=== PATIENT | male | born 1955 | race Caucasian/White ===

== ENCOUNTER 2016-07-18 10:52 | Emergency (ER) | payer OTHER, MEDICAID ==
[2016-07-18 11:03] VITALS: BP 133/80
[2016-07-18] MEDS ORDERED: ACETAMINOPHEN 325 MG TABLET PO ONE (11:40)
--- NOTE | 2016-07-18 11:42 | ER Document Report ---
ED Medical Screen (RME) - General Chief Complaint: Dialysis Catheter Problem Stated Complaint: ABDOMINAL PAIN Mode of Arrival: Ambulatory Information source: Patient Notes: Patient is a 61 yo M who presents with complaints that his PD catheter is "clogged up" for the past 2 days. he has been unable to pull any fluid out or put anything in. He endorses abdominal pain, rated at 2 out of 5, described as sharp/severe. Endorses diarrhea but denies fever/chills, nausea, vomiting, drainage or erythema around the site. He typically does 9 hours every night with a mid-day exchange, the last time this occurred was 2 days ago and at that time, it only gave a low volume and he does not feel it drained completely. TRAVEL OUTSIDE OF THE [place] IN LAST 30 DAYS: No - Related Data Allergies/Adverse Reactions: No Known Allergies Allergy (Verified 07/18/16 11:03) Past Medical History - Past Medical History Cardiac Medical History: Reports: Hx Coronary Artery Disease, Hx Heart Attack - 20 yrs ago, Hx Hypertension - on meds Pulmonary Medical History: Reports: Hx Asthma - inhalers, Hx Bronchitis, Hx COPD , Hx Pneumonia - Multiple times, Last time 4-5 yrs ago Neurological Medical History: Reports: Hx Cerebrovascular Accident - 10 yrs ago ; Lt side weakness, Hx Seizures - With kidney failure 2014 x 1-no meds Musculoskeltal Medical History: Reports Hx Arthritis - all joints Past Surgical History: Reports: Hx Orthopedic Surgery - Immunizations Immunizations up to date: Yes Hx Diphtheria, Pertussis, Tetanus Vaccination: Yes Review of Systems - Review of Systems Constitutional: See HPI Gastrointestinal: See HPI Skin: See HPI Physical Exam - Vital signs Vitals: Temp Pulse Resp BP Pulse Ox 98.1 F 80 20 133/80 H 97 07/18/16 11:01 07/18/16 11:01 07/18/16 11:01 07/18/16 11:01 07/18/16 11:01 - Notes Notes: General: VSS, no acute distress. Well-appearing Skin: No tenderness, erythema, warmth, swelling or drainage from PD site in left lower abdomen. Course - Re-evaluation Re-evalutation: 07/18/16 11:42 Patient seen and examined. Ordered PO tylenol for pain, lab work. - Vital Signs Vital signs: Temp Pulse Resp BP Pulse Ox 98.1 F 80 20 133/80 H 97 07/18/16 11:01 07/18/16 11:01 07/18/16 11:01 07/18/16 11:01 07/18/16 11:01
[2016-07-18 12:23] LABS: ABSOLUTE BASOPHILS # (AUTO) 0.1 10^3/uL (0.0-0.2); ABSOLUTE EOSINOPHILS # (AUTO) 0.3 10^3/uL (0.0-0.6); ABSOLUTE LYMPHOCYTES (AUTO) 2.2 10^3/uL (0.5-4.7); ABSOLUTE NEUT (AUTO) 7.5 10^3/uL (1.7-8.2); BASOPHILS % (AUTO) 0.6 % (0-2); EOSINOPHILS % (AUTO) 2.3 % (0-6); HEMATOCRIT 34.9 % (37.9-51.0); HEMOGLOBIN 11.6 g/dL (13.5-17.0); HGB HCT DIFFERENCE -0.1; LYMPHOCYTES % (AUTO) 19.9 % (13-45); MEAN CORPUSCULAR HEMOGLOBIN 31.5 pg (27.0-33.4); MEAN CORPUSCULAR HGB CONC 33.2 g/dL (32.0-36.0); MEAN CORPUSCULAR VOLUME 95 fl (80-97); MONOCYTES % (AUTO) 8.8 % (3-13); RED BLOOD COUNT 3.68 10^6/uL (4.35-5.55); RED CELL DISTRIBUTION WIDTH 14.6 % (11.5-14.0); SEGMENTED NEUTROPHILS % (AUTO) 68.4 % (42-78); WHITE BLOOD COUNT 10.9 10^3/uL (4.0-10.5)
[2016-07-18 12:34] LABS: ALANINE AMINOTRANSFERASE 36 U/L (21-72); ALBUMIN 3.2 g/dL (3.5-5.0); ALKALINE PHOSPHATASE 97 U/L (38-126); ANION GAP 14 (5-19); ASPARTATE AMINO TRANSFERASE 20 U/L (17-59); BILIRUBIN,TOTAL 0.3 mg/dL (0.2-1.3); BLOOD UREA NITROGEN 50 mg/dL (7-20); CARBON DIOXIDE 24 mmol/L (22-30); CHLORIDE 108 mmol/L (98-107); CREATININE RESULT 4.61 mg/dL (0.52-1.25); GLUCOSE 150 mg/dL (75-110); POTASSIUM 4.3 mmol/L (3.6-5.0); SODIUM 145.8 mmol/L (137-145); TOTAL PROTEIN 6.1 g/dL (6.3-8.2)
[2016-07-18 12:46] LABS: CALCIUM 6.7 mg/dL (8.4-10.2)
--- NOTE | 2016-07-18 15:03 | ER Document Report ---
ED Dialysis Cath/Shunt Problem - General Mode of Arrival: Ambulatory Information source: Patient TRAVEL OUTSIDE OF THE [place] IN LAST 30 DAYS: No - HPI Onset: Other - x2 days Onset/Duration: Persistent Associated symptoms: None <MEGHA LEES - Last Filed: 07/18/16 16:30> <RONALD MORGAN - Last Filed: 07/18/16 18:06> - General Chief Complaint: Dialysis Catheter Problem Stated Complaint: ABDOMINAL PAIN Notes: Patient is a 61 year old male that presents to the emergency department today with complaints of his peritoneal dialysis catheter being clogged. Patient states he has been unable to do his dialysis at home for the last two days because of this. Patient states he has also had mild "abdominal discomfort". Patient denies any other symptoms. (MEGHA LEES) - Related Data Allergies/Adverse Reactions: No Known Allergies Allergy (Verified 07/18/16 11:03) Past Medical History - General Information source: Patient - Social History Smoking Status: Current Every Day Smoker Cigarette use (# per day): Yes Frequency of alcohol use: None Drug Abuse: None Family History: Reviewed & Not Pertinent - Past Medical History Cardiac Medical History: Reports: Hx Coronary Artery Disease, Hx Heart Attack - 20 yrs ago, Hx Hypertension - on meds Pulmonary Medical History: Reports: Hx Asthma - inhalers, Hx Bronchitis, Hx COPD , Hx Pneumonia - Multiple times, Last time 4-5 yrs ago Neurological Medical History: Reports: Hx Cerebrovascular Accident - 10 yrs ago ; Lt side weakness, Hx Seizures - With kidney failure 2014 x 1-no meds Musculoskeltal Medical History: Reports Hx Arthritis - all joints Past Surgical History: Reports: Hx Orthopedic Surgery, Hx Vascular Surgery - fistula left arm - Immunizations Immunizations up to date: Yes Hx Diphtheria, Pertussis, Tetanus Vaccination: Yes <MEGHA LEES - Last Filed: 07/18/16 16:30> Review of Systems - Review of Systems Constitutional: denies: Fever EENT: No symptoms reported Cardiovascular: No symptoms reported Respiratory: No symptoms reported Gastrointestinal: denies: Abdominal pain Genitourinary: See HPI, Other - possible clogging of peritoneal dialysis catheter Male Genitourinary: No symptoms reported Musculoskeletal: No symptoms reported Skin: No symptoms reported Hematologic/Lymphatic: No symptoms reported Neurological/Psychological: No symptoms reported -: Yes All other systems reviewed and negative <MEGHA LEES - Last Filed: 07/18/16 16:30> Physical Exam - General General appearance: Appears well, Alert In distress: None - HEENT Head: Normocephalic, Atraumatic Eyes: Normal Conjunctiva: Normal Extraocular movements intact: Yes - Respiratory Respiratory status: No respiratory distress - Cardiovascular Rhythm: Regular Heart sounds: Normal auscultation - Abdominal Inspection: Other - Peritoneal Dialysis Catheter in place, no surrounding erythema, discharge, or sign of infection. Catheter flushes but is unable to pulled back out past a certain point, at which point it causes the patient pain. There is sediment in the tubing. Tenderness: Nontender. No: Guarding, Rebound - Back Back: Nontender - Extremities General upper extremity: Normal inspection, Nontender. No: Edema General lower extremity: Normal inspection, Nontender. No: Edema - Neurological Neuro grossly intact: Yes Cognition: Normal Orientation: AAOx4 - Psychological Associated symptoms: Normal affect, Normal mood - Skin Skin Temperature: Warm Skin Moisture: Dry Skin Color: Normal <MEGHA LEES - Last Filed: 07/18/16 16:30> Course - Laboratory Result Diagrams: 07/18/16 12:05 07/18/16 12:05 <MEGHA LEES - Last Filed: 07/18/16 16:30> - Laboratory Result Diagrams: 07/18/16 12:05 07/18/16 12:05 <RONALD MORGAN - Last Filed: 07/18/16 18:06> - Re-evaluation Re-evalutation: 07/18/16 16:28 I personally performed the services described in the documentation, reviewed and edited the documentation which was dictated to my scribe in my presence, and it accurately records my words and actions. Presents emergency Department with chief complaint of he can't do his peritoneal dialysis because catheter is blocked. He says his catheter was put in about a year and half ago when he does peritoneal dialysis midday and 9 hours in the evening. He has seen Dr. Nita Belcher and goes to [place] Dr. Dalton. On presentation he is awake alert afebrile no white count elevation and no acute abdominal guarding rebound rigidity or peritoneal signs on serial abdominal examinations. I did withdraw a small amount of fluid which was sent to the lab for culture and evaluation. There is was agreed to degree of sediment in the tubing. I flushed it with 10 mL of normal saline and it flushed very easily but when I attempted to pull the fluid back it stopped abruptly at 5 mL would not pull back any further and cause little bit of discomfort to the patient. I contacted Dr. Villatoro at [phone] was asset protection professional for general surgery he asked me to touch base with Dr. Nita Belcher which I contacted at [phone]. Spoke with Dr. Nita Belcher who said that the patient he could deftly see the patient in the office tomorrow. Patient has elevated creatinine but no acute potassium elevation warranting immediate dialysis. Contacted [place] Dr. Sethi at [phone] to make sure that he is okay with the plan that the patient will follow-up in the a.m. with Dr. Belcher to assess the nonfunctioning peritoneal dialysis catheter. 07/18/16 18:[address] Sethi in [place] he says that he can have his nurse contact the patient meets patient and the office tomorrow to assess patient does not have hyperkalemia or need for emergent dialysis at this point also does not have clinical evidence of acute peritonitis on examination. He is going to be discharge follow-up with the benzol still operator's office tomorrow and discussed reasons for ED return sooner (RONALD MORGAN) - Vital Signs Vital signs: Temp Pulse Resp BP Pulse Ox 98.1 F 80 20 133/80 H 97 07/18/16 11:01 07/18/16 11:01 07/18/16 11:01 07/18/16 11:01 07/18/16 11:01 (MEGHA LEES) (RONALD MORGAN) - Laboratory Laboratory results interpreted by me: 07/18/16 07/18/16 12:05 12:05 WBC 10.9 H RBC 3.68 L Hgb 11.6 L Hct 34.9 L RDW 14.6 H Sodium 145.8 H Chloride 108 H BUN 50 H Creatinine 4.61 H Est GFR ( Amer) 16 L Est GFR (Non-Af Amer) 13 L Glucose 150 H Calcium 6.7 L* Total Protein 6.1 L Albumin 3.2 L (MEGHA LEES) (RONALD MORGAN) Discharge <MEGHA LEES - Last Filed: 07/18/16 16:30> <RONALD MORGAN - Last Filed: 07/18/16 18:06> - Discharge Clinical Impression: peritoneal dialysis catheter malfunction Condition: Stable Additional Instructions: You have been seen and evaluated for nonfunctioning peritoneal dialysis catheter. Right now you do not need emergency dialysis extra potassium is okay however I spoke with your benzol still operator want you meet them in the office first thing tomorrow to assess the dysfunction with the catheter site. At this time you don't have any severe abdominal pain or concerns for acute abdominal findings like there is an infection from the catheter site. I did send the fluid from the catheter down for evaluation. I discussed this with your benzol still operator kidney specialist as well and he states you're able to be discharge follow-up first thing in the a.m. and discuss reasons for ED return sooner increasing abdominal pain fever vomiting or any concerns Scribe Documentation - Scribe Written by Francis:: Francis Lay, 1632 (07/18/2016) acting as scribe for :: Gonzales <MEGHA LEES - Last Filed: 07/18/16 16:30>
== END 2016-07-18 18:11 | disposition home or self-care (01) ==
LOC: ER 10:52
DX: T82.9XXA Unspecified complication of cardiac and vascular prosthetic device, implant and graft, initial encounter (principal); R10.9 Unspecified abdominal pain; F17.210 Nicotine dependence, cigarettes, uncomplicated; I25.10 Atherosclerotic heart disease of native coronary artery without angina pectoris; I25.2 Old myocardial infarction; I10 Essential (primary) hypertension
CPT/HCPCS: 36415; 80053; 85025; 87070; 87075; 87205; 99283

== ENCOUNTER → 2016-07-19 | Outpatient (CLI) | payer OTHER, MEDICAID | LOC: OD 10:45 | PROVIDERS: ATTEND Internal Medicine Nephrology | DX: E87.5 Hyperkalemia (principal); N18.6 End stage renal disease | CPT/HCPCS: 36415; 74000; 84132 ==

== ENCOUNTER → 2016-08-31 | Outpatient (CLI) | payer OTHER ==
[~2016-08-31] MED LIST: REGADENOSON INJ 0.4 MG/5 ML DISP.SYRIN IV ONE
--- NOTE | 2016-08-31 20:31 | DRAGON STRESS TEST REPORT ---
ntravenous Lexiscan Cardiolite stress test using single photon emmision computerized tomography. Date of procedure: 08/31/2016. Ordering Provider: Dr. Charmaine Ryan. Primary Care Physician: [facility]. Indication: Chest pain. Coronary risk factors: Age, diabetes mellitus non- insulin-dependent, hypertension, dyslipidemia, tobacco abuse disorder and family history of coronary artery disease. Resting EKG: Sinus Rhythm. Within Normal Limits. The patient had no chest pain or discomfort, and there were no arrhythmias seen Stress EKG: No changes of ischemia. Reason for termination: Protocol. Conclusions: Normal EKG and hemodynamic response to IV Lexiscan. Nuclear data: At rest the patient was given 15.09 millicuries of technetium 99m sestamibi injected intravenously. As per protocol rest non gated SPECT images were obtained. Subsequently the patient was given intravenous Lexiscan at a dose of 0.4 mg in 5 mL intravenously, followed by flush with normal saline. Subsequently the stress dose of 45.5 millicuries of technetium 99m sestamibi was injected intravenously. As per protocol stress gated images were obtained. Nuclear interpretation: Review of images showed there is liver and bowel contamination artifact. A poor quality study. There is a perfusion defect in the basal inferior wall which is more pronounced in the rest images compared to the stress images hence this is most likely artifactual. The rest of the segments of the myocardium segments of the myocardium had normal perfusion at rest, and normal perfusion post stress with IV Lexiscan. All segments of the myocardium had normal motion, contraction, and thickening by gated study. T. I D. ratio was normal at . Computer read rest, and stress left ventricular ejection fraction were 64 %, and 69 %, respectively. Conclusion: 1. There is no scintigraphic evidence of Lexiscan induced myocardial ischemia. 2. There is no scintigraphic evidence of myocardial infarction/scar. Recommendations: Aggressive risk factor modification, and treating the underlying co- morbidities. MTDD
== END ==
LOC: RAD 06:18
PROVIDERS: ATTEND Specialist
DX: R07.9 Chest pain, unspecified (principal)
CPT/HCPCS: 93017; 78452; A9500; J2785; Q9969

== ENCOUNTER 2016-09-21 17:21 | Inpatient (IN) | payer OTHER, MEDICAID ==
[2016-09-21 18:00] LABS: HEMATOCRIT 40.2 % (37.9-51.0); HEMOGLOBIN 13.5 g/dL (13.5-17.0); HGB HCT DIFFERENCE 0.3; MEAN CORPUSCULAR HEMOGLOBIN 31.5 pg (27.0-33.4); MEAN CORPUSCULAR HGB CONC 33.5 g/dL (32.0-36.0); MEAN CORPUSCULAR VOLUME 94 fl (80-97); RED BLOOD COUNT 4.27 10^6/uL (4.35-5.55); RED CELL DISTRIBUTION WIDTH 14.7 % (11.5-14.0); WHITE BLOOD COUNT 20.3 10^3/uL (4.0-10.5)
[2016-09-21 18:20] LABS: ALANINE AMINOTRANSFERASE 42 U/L (21-72); ALBUMIN 4.7 g/dL (3.5-5.0); ALKALINE PHOSPHATASE 125 U/L (38-126); ANION GAP 17 (5-19); ASPARTATE AMINO TRANSFERASE 27 U/L (17-59); BILIRUBIN,TOTAL 0.7 mg/dL (0.2-1.3); BLOOD UREA NITROGEN 18 mg/dL (7-20); CALCIUM 8.9 mg/dL (8.4-10.2); CARBON DIOXIDE 31 mmol/L (22-30); CHLORIDE 93 mmol/L (98-107); CREATINE KINASE 95 U/L (55-170); CREATININE RESULT 2.36 mg/dL (0.52-1.25); GLUCOSE 147 mg/dL (75-110); POTASSIUM 3.6 mmol/L (3.6-5.0); SODIUM 140.7 mmol/L (137-145); TOTAL PROTEIN 8.7 g/dL (6.3-8.2)
[2016-09-21 18:23] LABS: BASOPHILS % (MANUAL) 0 % (0-2); EOSINOPHILS % (MANUAL) 2 % (0-6); LYMPHOCYTES % (MANUAL) 11 % (13-45); TOTAL CELLS COUNTED 100
[2016-09-21] MEDS ORDERED: NORMAL SALINE 1000 ML 500 ML IV ONE (18:24)
[2016-09-21 18:25] LABS: ANISOCYTOSIS SLIGHT; POLYCHROMASIA SLIGHT; TOXIC GRANULATION SLIGHT
--- NOTE | 2016-09-21 18:30 | ER Document Report ---
ED General - General Information source: Patient TRAVEL OUTSIDE OF THE [place] IN LAST 30 DAYS: No - HPI Patient complains to provider of: Syncope Onset: Just prior to arrival Onset/Duration: Sudden Associated symptoms: Productive cough, Headache, Nausea, Shortness of breath, Other - Confusion. denies: Vomiting <JAXSON WILSON - Last Filed: 09/22/16 00:03> <ANUPAMA BARBOSA - Last Filed: 09/22/16 03:31> - General Chief Complaint: Syncope Stated Complaint: POSSIBLE SYNCOPE Notes: Patient is a 61-year-old male presenting to the emergency department after having a syncopal episode today at [facility] just prior to arrival. Patient states that he had just left his dialysis treatment, with a took off more fluid than usual, and went straight to [facility]. Patient states that he thought he was going to cough, next thing he knew somebody was standing over him asking him if he could stand. Patient states that he has had a cough for the past 2 weeks, and he was given an antibiotic yesterday. Patient admits to chest soreness, shortness of breath, severe headache, mild back pain and mild nausea. Patient also states that yesterday when he coughed it felt like he went twilight zone. Patient also admits to being confused. Patient has a history of heart attack, stroke, and he is in end stage renal failure. (JAXSON WILSON) - Related Data Allergies/Adverse Reactions: No Known Allergies Allergy (Verified 09/21/16 17:55) Past Medical History - General Information source: Patient - Social History Smoking Status: Current Every Day Smoker Chew tobacco use (# tins/day): No Frequency of alcohol use: None Drug Abuse: None Family History: Reviewed & Not Pertinent - Past Medical History Cardiac Medical History: Reports: Hx Coronary Artery Disease - CHOLESTEROL, Hx Heart Attack, Hx Hypertension Pulmonary Medical History: Reports: Hx Asthma, Hx COPD, Hx Pneumonia Denies: Hx Bronchitis Neurological Medical History: Reports: Hx Cerebrovascular Accident. Denies: Hx Seizures Renal/ Medical History: Reports: Hx End Stage Renal Disease, Hx Hemodialysis Musculoskeltal Medical History: Reports Hx Arthritis Past Surgical History: Reports: Hx Orthopedic Surgery, Hx Vascular Surgery - fistula left arm - Immunizations Immunizations up to date: Yes Hx Diphtheria, Pertussis, Tetanus Vaccination: - UNSURE <FANY WILSONICA - Last Filed: 09/22/16 00:03> Review of Systems - Review of Systems Constitutional: See HPI, Recent illness - Antibiotic for cough EENT: No symptoms reported Cardiovascular: See HPI, Chest pain - "sore", Syncope, Lightheaded Respiratory: See HPI, Cough, Hurts to breathe, Short of breath Gastrointestinal: See HPI, Nausea Genitourinary: No symptoms reported Male Genitourinary: No symptoms reported Musculoskeletal: No symptoms reported Skin: No symptoms reported Hematologic/Lymphatic: No symptoms reported Neurological/Psychological: See HPI, Confusion, Lost consciousness, Headaches -: Yes All other systems reviewed and negative <KATIEDARWINJAXSON - Last Filed: 09/22/16 00:03> Physical Exam - Vital signs Interpretation: Hypotensive, Tachycardic, Tachypneic - General General appearance: Alert, Other - Appears uncomfortable - HEENT Head: Normocephalic, Abrasions - Small abrasion to back of head, not actively bleeding. Eyes: Normal Pupils: PERRL - Respiratory Respiratory status: No respiratory distress Chest status: Nontender Breath sounds: Normal Chest palpation: Normal - Cardiovascular Rhythm: Tachycardia Heart sounds: Normal auscultation Murmur: No - Abdominal Inspection: Other - Peritoneal dialysis catheter coming out of his left abdomen Distension: No distension Bowel sounds: Normal Tenderness: Nontender Organomegaly: No organomegaly - Back Back: Tender - C5-C7 tenderness to palpation - Extremities General upper extremity: Normal inspection, Nontender, Normal color, Normal ROM , Normal temperature General lower extremity: Normal inspection, Nontender, Normal color, Normal ROM , Normal temperature - Neurological Neuro grossly intact: Yes Cognition: Confused [place] Coma Scale Eye Opening: Spontaneous [place] Coma Scale Verbal: Confused [place] Coma Scale Motor: Obeys Commands [place] Coma Scale Total: 14 Speech: Normal - Psychological Associated symptoms: Normal affect, Normal mood - Skin Skin Temperature: Warm Skin Moisture: Dry Skin Color: Other - Franco <JAXSON WILSON - Last Filed: 09/22/16 00:03> Course - Laboratory Result Diagrams: 09/21/16 17:45 09/21/16 17:45 - Consults Sav Time consulted: 20:30 <JAXSON WILSON - Last Filed: 09/22/16 00:03> - Laboratory Result Diagrams: 09/21/16 17:45 09/21/16 17:45 - Diagnostic Test Radiology reviewed: Reports reviewed - EKG Interpretation by Me EKG shows normal: Sinus rhythm Rate: Normal Rhythm: NSR <ANUPAMA BARBOSA - Last Filed: 09/22/16 03:31> - Re-evaluation Re-evalutation: 09/22/16 Patient is a 61-year-old male comes in after an episode of syncope. Patient also with leukocytosis. Patient has been coughing. Questionable pneumonia on CT. Patient was initially hypotensive and also tachycardic. He has responded well to fluids. He is a dialysis patient was dialyzed today. Patient will be started on antibiotics for possible pneumonia. Discussed with hospitalist service. Patient is agreeable to plan. Feels better after being medicated. No acute findings on CT otherwise. Stable time of admission. (ANUPAMA BARBOSA) - Vital Signs Vital signs: Temp Pulse Resp BP Pulse Ox 97.7 F 104 H 20 90/64 L 100 09/22/16 02:23 09/22/16 02:23 09/22/16 02:23 09/22/16 02:23 09/22/16 02:23 - Laboratory Laboratory results interpreted by me: 09/21/16 09/21/16 09/21/16 17:45 17:45 19:06 WBC 20.3 H RBC 4.27 L RDW 14.7 H Lymphocytes % (Manual) 11 L Abs Neuts (Manual) 15.2 H Abs Monocytes (Manual) 2.4 H Chloride 93 L Carbon Dioxide 31 H Creatinine 2.36 H Est GFR ( Amer) 34 L Est GFR (Non-Af Amer) 28 L Glucose 147 H Total Protein 8.7 H Urine Protein 100 H Urine Ketones TRACE H Urine Blood MODERATE H Ur Leukocyte Esterase TRACE H Urine Ascorbic Acid 40 H - Consults Sav Reason for consultation: 09/21/16 20:30 Discussed patient's case with Dr. Ang and possibility of admission. Dr. Ang will call back after review. 09/21/16 21:07 Dr. Ang returned call and agreed to accept patient. Admit to IMCU. (JAXSON WILSON) Critical Care Note - Critical Care Note Total time excluding time spent on procedures (mins): 45 - evaluation and management of syncope, multiple re-evaluations, evaluation of head injury, multiple re-evaluations, coordination of admission, counseling patient and family <ANUPAMA BARBOSA - Last Filed: 09/22/16 03:31> Discharge <JAXSON WILSON - Last Filed: 09/22/16 00:03> - Discharge Admitting Provider: Hospitalist Unit Admitted: IMCU <ANUPAMA BARBOSA - Last Filed: 09/22/16 03:31> - Discharge Clinical Impression: possible pneumonia, End stage renal disease Syncope Qualifiers: Syncope type: unspecified Qualified Code(s): R55 - Syncope and collapse Leukocytosis Qualifiers: Leukocytosis type: unspecified Qualified Code(s): D72.829 - Elevated white blood cell count, unspecified Condition: Stable Disposition: ADMITTED INPATIENT Scribe Attestation: 09/22/16 03:29 I personally performed the services described in the documentation, reviewed and edited the documentation which was dictated to the scribe in my presence, and it accurately records my words and actions. (ANUPAMA BARBOSA) Scribe Documentation - Scribe Written by Francis:: Jaxson Wilson 09/21/2016 1823 acting as scribe for :: Maricarmen <JXASON WILSON - Last Filed: 09/22/16 00:03>
[2016-09-21 18:32] LABS: CREATINE KINASE MB 0.82 ng/mL (<4.55)
[2016-09-21 18:35] LABS: TROPONIN I < 0.012 ng/mL
[2016-09-21 19:32] LABS: APPEARANCE,URINE SLIGHTLY-CLOUDY; BILIRUBIN,URINE NEGATIVE (NEGATIVE); GLUCOSE, URINE NEGATIVE (NEGATIVE); KETONES,URINE TRACE mg/dL (NEGATIVE); LEUKOCYTE ESTERASE,URINE TRACE (NEGATIVE); NITRITE,URINE NEGATIVE (NEGATIVE); PROTEIN,URINE 100 mg/dL (NEGATIVE); URINE SPECIFIC GRAVITY 1.014; UROBILINOGEN,URINE NEGATIVE mg/dL (<2.0)
[2016-09-21] MEDS ORDERED: FENTANYL CITRATE INJ/PF 100 MCG/2 ML AMPUL IV ONE (19:52)
[2016-09-21] MEDS ORDERED: VANCOMYCIN HCL INJ 1000 MG VIAL IV ONE (20:00)
[2016-09-21] MEDS ORDERED: CEFEPIME 2 GM/D5W RTU 50 ML IV ONE (21:04)
[2016-09-21] MEDS ORDERED: LEVOFLOXACIN 750 MG/D5W RTU 150 ML IV ONE (21:05)
--- NOTE | 2016-09-21 21:36 | EKG REPORT ---
SEVERITY:- ABNORMAL ECG - SINUS TACHYCARDIA VENTRICULAR BIGEMINY : Confirmed by: Ron Hernandez 21-Sep-2016 21:36:03
[2016-09-21] MEDS ORDERED: GLUCAGON,HUMAN RECOMB 1 MG INJ IM PRN (22:45)
[2016-09-21] MEDS ORDERED: DEXTROSE 50%-WATER 25 GM/50 ML DISP.SYRIN IV PRN ×2 (22:45)
[2016-09-21] MEDS ORDERED: DEXTROSE 40% GEL 15 GM TUBE PO PRN ×2 (22:45)
[2016-09-21] MEDS ORDERED: OXYCODONE HCL IR 5 MG TABLET PO PRN (22:46)
[2016-09-21] MEDS ORDERED: NICOTINE 21 MG/24 HR PATCH.TD24 TD PRN (22:47)
[2016-09-21] MEDS ORDERED: NORMAL SALINE 1000 ML 500 ML IV PRN (22:54)
[2016-09-21] MEDS ORDERED: ALBUTEROL SULFATE 0.083% NEB 2.5 MG/3 ML AMPUL NEB PRN (22:54)
[2016-09-21] MEDS ORDERED: GUAIFENESIN SYRP 200 MG/10 ML UDC PO PRN (22:54)
[2016-09-21] MEDS ORDERED: PREDNISONE 20 MG TABLET PO SCH (23:00)
[2016-09-21] MEDS ORDERED: AZITHROMYCIN 500 MG in DEXTROSE 5%-WATER 250 ML IV ONE (23:00)
[2016-09-21] MEDS ORDERED: PHARMACY COMMUNICATION ORDER MC NR (23:00)
--- NOTE | 2016-09-21 23:25 | PDOC H&P ---
History of Present Illness Admission Date/PCP: 09/21/16 21:39 CHANI LAWS MD, Nephrology PCP [place] Patient complains of: SYNCOPE History of Present Illness: GET BURGESS is a 61 year old male, with end-stage renal disease, on Monday hemodialysis, status post dialysis session earlier today , along with insulin-dependent diabetes mellitus, mild depression without suicidal or homicidal ideation, hyperlipidemia, chronic back pain, mild bruising , esophageal reflux disease, one and a half pack-a-day smoker, with probable underlying COPD who presents to the emergency room for evaluation of above complaint. Patient has been discussed with emergency room physician who evaluated the patient. Was dialyzed earlier today, with a bit more fluid taken off than usual. Went to [facility] directly after dialysis. Suffered a post tussive syncopal episode, which, per patient, has been a chronic issue for several months. Fell and struck his head and perhaps his chest wall. Complaining now of bilateral chest wall pain, increasing shortness of breath along with occipital headache. No Chest pain prior to the episode. No nausea vomiting, fever or chills. Was started on antibiotic, unknown specific drug, yesterday for "infection." Patient uncertain as to exactly what infection. A bit of a poor historian at times. No other antibiotic last 3 months. No hospitalization last 3 months. Patient had a severe episode of coughing yesterday and states when he finished coughing, it felt as though he were in the "twilight zone." No biting of the tongue. No fecal or urinary incontinence. Per patient, Does have a history of reported seizures apparently when his renal failure was initially discovered 5 years ago, but has never been on antiepileptics. No subsequent seizures. Prior stroke with mild left hemiparesis. No history of pulmonary embolus or DVT. Suffered an OH 30 years ago. 2 stents implanted 5 years ago in [place]. Currently resting quietly, complaining primarily of the bilateral chest wall pain whenever he takes a deep breath. States he's had a "knot" anterior to his right ear for several years. States it will increase in size and then decrease. Quite painful at times when he eats. Laboratory results are listed in [facility] and are reviewed. X-ray summary results are listed below, with full report(s) reviewed. . EKG reviewed. And compared to a tracing from December 02 of last year. Social history/personal habits: . Lives with sister. Has children. On disability due to coronary artery disease along with his chronic back pain. Allergies/adverse reactions NKDA. Home medications are reviewed by discussion with patient and bottle review and are to be reconciled by nursing staff in [facility]. Home medications initially autopopulated into [facility] may not accurately reflect patient's true medications, dosages, and/or frequencies. REVIEW OF SYSTEMS: Constitutional: No fever or chills. Eyes: Wears glasses. ENT: No swallowing problems or complaints. Partial hearing loss. Pulmonary: See history and present illness. Cardiovascular: See history and present illness. Gastrointestinal: No current complaints, including nausea or vomiting. Skin: No current complaints, including rashes. Hematologic: Easy bruising. Neurologic: Chronic numbness and tingling of his feet from his diabetic neuropathy. Musculoskeletal: Chronic back pain Psychiatric: Mild depression; denies suicidal or homicidal ideation. Endocrine: No current complaints, including polyuria. Genitourinary: No current complaints, including dysuria. PHYSICAL EXAMINATION: 5 feet 9 inches tall. 127 kg. BMI 41.3 kg/m. Temperature 98.3. Blood pressure 109/67. Pulse 108 and regular. 96% saturation on 2 L oxygen per nasal cannula. Respirations are 16 and unlabored. Obese otherwise well-developed though chronically ill-appearing male who appears a number of years older than his stated age. Slightly fatigued appearance. Appears not to feel very well. Complaining of the bilateral chest wall pain with deep breathing. Skin is warm and dry. No grossly obvious evidence of rash in areas of skin examined. Very subtle subcutaneous nodule slightly anterior and superior to the right tragus. Approximately 1 x 1.5 cm. Slightly mobile. Very mildly tender. Small abrasion on his right occiput, with small amount of dried blood. ENT: Hearing grossly normal to normal conversation. Tongue midline on protrusion pink and slightly tacky. Eyes: No scleral icterus. Pupils equal and reactive to light at 4 mm. [place] conjunctivae. Neck is supple and nontender to gentle active range of motion and palpation. Midline trachea. No palpable thyroid nodule mass enlargement or tenderness. Lymphatic: No palpable cervical or clavicular nodes. Neck and lymphatic exams limited by patient body habitus. Psychiatric: Fair to reasonable insight into acute and chronic medical issues. Oriented to time location and why here. Lungs: Auscultation reveals clear and equal breath sounds bilaterally. No use of accessory respiratory muscles. Cardiovascular: Heart regular rate and rhythm, without gallop murmur or rub. No carotid or abdominal aortic bruits. No ankle or pedal edema. palpable dorsalis pedis pulses. Abdomen: soft, somewhat obese, Mildly distended nontender with positive bowel sounds. Unable to adequately evaluate abdomen for masses or organomegaly due to body habitus and distention. Compression of his lateral chest wall at the costal margin each side reproduces his chest discomfort. No crepitus or gross instability. Extremities: Feet are warm and dry. No calf tenderness to compression. No grossly obvious visual evidence of calf swelling. Gentle manipulation of lower extremities fails to reveal any obvious evidence of injury or instability to knees hips or ankles. Neurologic: Moves upper extremities grossly normally. Patellar reflexes absent. Absent Babinski. Light touch decreased at feet, a chronic problem according to patient.. Dorsiflexion and plantarflexion of feet 5 / 5 and symmetric. Past Medical History Cardiac Medical History: Reports: Coronary Artery Disease - CHOLESTEROL, Myocardial Infarction, Hyperlipidema, Hypertension Denies: DVT, Pulmonary Embolism Pulmonary Medical History: Reports: Asthma, Chronic Obstructive Pulmonary Disease (COPD), Pneumonia Denies: Bronchitis EENT Medical History: Reports: Ears - Partial hearing loss Neurological Medical History: Reports: Ischemic CVA - Mild left hemiparesis, Seizures - History of seizure when renal failure discovered; never on antiepileptic Denies: Hemorrhagic CVA Endocrine Medical History: Reports: Diabetes Mellitus Type 1 Denies: Diabetes Mellitus Type 2, Hyperthyroidism, Hypothyroidism Renal/ Medical History: Reports: End Stage Renal Disease GI Medical History: Reports: Gastroesophageal Reflux Disease Denies: Cirrhosis, Hepatitis, Peptic Ulcer Disease Musculoskeltal Medical History: Reports: Arthritis, Other - Chronic back pain Skin Medical History: Reports: Other - "Knot" anterior to rt. ear; 1st noted several yrs ago. See History and Present Illness, 09/21/16. Psychiatric Medical History: Reports: Depression, Tobacco Dependency Denies: Alcohol Dependency, General Anxiety Disorder, Substance Abuse Hematology: Reports: Anemia, Other - Easy bruising Infectious Medical History: Denies: Hepatitis B, Hepatitis C Past Surgical History Past Surgical History: Reports: Orthopedic Surgery, Vascular Surgery - fistula left arm Social History Information Source: Patient, Emergency Med Personnel, [facility] Records Lives with: Family Smoking Status: Current Every Day Smoker Frequency of Alcohol Use: None Drugs: None - Advance Directive Resuscitation Status: Full Code Surrogate healthcare decision maker:: Sister Citlali Tong Family History Family History: Reviewed & Not Pertinent Parental Family History Reviewed: Yes Children Family History Reviewed: Yes Sibling(s) Family History Reviewed.: Yes Medication/Allergy Home Medications: Cholecalciferol (Vitamin D3) [Vitamin D3 2000 unit Tablet] 2,000 unit PO DAILY 09/22/16 RX: Aspirin [Adult Low Dose Aspirin EC] 81 mg PO DAILY 09/22/16 RX: Atorvastatin Calcium [Lipitor 80 mg Tablet] 80 mg PO DAILY 09/22/16 RX: Budesonide/Formoterol Fumarate [Symbicort HFA 160-4.5 mcg Inhaler 6 gm] 1 puff IH Q12 09/22/16 RX: Folic Acid/Vitamin B Comp W-C [Joie-Raissa Tablet] 0.8 mg PO DAILY 09/22/16 RX: Insulin Degludec [Tresiba Flextouch U-200] 72 unit SQ DAILY 09/22/16 RX: Loratadine [Claritin 10 mg Tablet] 10 mg PO DAILY 09/22/16 RX: Meloxicam [Mobic 7.5 mg Tablet] 7.5 mg PO DAILY 09/22/16 RX: [place]-3 Acid Ethyl Esters [Lovaza 1 gm Capsule] 2 gm PO BID 09/22/16 RX: Omeprazole 40 mg PO DAILY 09/22/16 RX: Sertraline HCl [Zoloft 50 mg Tablet] 150 mg PO DAILY 09/22/16 RX: Albuterol Sulfate [Proair HFA Inhalation Aerosol 8.5 gm MDI] 2 puff IH Q4HP PRN #1 hfa.aer.ad 09/26/16 RX: Albuterol Sulfate [Ventolin 0.083% Neb 2.5 mg/3 mL Ampul] 2.5 mg NEB RTQ4HP PRN #1 pkg 09/26/16 RX: Oxycodone HCl [Oxy-Ir 5 mg Tablet] 10 mg PO Q6HP PRN tablet 09/26/16 RX: Amox Tr/Potassium Clavulanate [Augmentin "500" Tablet] 1 each PO BID #10 tablet 09/28/16 RX: Azithromycin 500 mg PO DAILY #5 tablet 09/28/16 RX: Docusate Sodium [Colace 100 mg Capsule] 100 mg PO BID #60 capsule 09/28/16 RX: Fluticasone Propionate [Flonase Nasal Chamberlain 50 Mcg/[place]lain 16 gm] 1 spray NASL Q12 #1 spray.pump 09/28/16 RX: Gabapentin [Neurontin 300 mg Capsule] 300 mg PO QHS #30 cap 09/28/16 RX: Ipratropium/Albuterol Sulfate [Duoneb 3 ml Ampul] 3 ml NEB RTQ8 #1 packet RX: Montelukast Sodium [Singulair 10 mg Tablet] 10 mg PO QHS #30 tablet RX: Nebulizer [Nebulizer Machine] 1 each MC ASDIR PRN #1 kit 09/28/16 RX: Nicotine [Nicoderm 21 mg/24 Hr Transderm Patch] 1 each TD DAILY #14 patch.td24 09/28/16 RX: Polyethylene Glycol 3350 [Miralax Powder 17 gm/Packet] 17 gm PO DAILY@1200 # 30 powd.pack 09/28/16 RX: Prednisone [Deltasone 20 mg Tablet] 40 mg PO DAILY@1200 #10 tablet 09/28/16 Allergies/Adverse Reactions: No Known Allergies Allergy (Verified 09/21/16 17:55) Physical Exam Vital Signs: Temp Pulse Resp BP Pulse Ox 98.3 F 110 H 25 H 94/70 L 97 09/21/16 20:21 09/21/16 17:30 09/21/16 21:01 09/21/16 22:00 09/21/16 22:01 Results Impressions: Cervical Spine CT 09/21/16 18:24 IMPRESSION: Degenerative changes without evidence for fracture Chest CT 09/21/16 18:24 IMPRESSION: No significant intrathoracic posttraumatic changes are identified. Other findings as noted above Head CT 09/21/16 18:24 IMPRESSION: No significant intracranial abnormalities were identified. Soft tissue nodule in the subcutaneous fat on the right as noted above. Other findings as noted above Assessment & Plan - Diagnosis (1) Abrasion of occiput Qualifiers: Encounter type: initial encounter Qualified Code(s): S00.01XA - Abrasion of scalp, initial encounter Is this a current diagnosis for this admission?: YesPlan: Mild. Follow clinically. (2) Chest wall pain Is this a current diagnosis for this admission?: YesPlan: When necessary pain medication. Repeat troponin. (3) Fall Qualifiers: Encounter type: initial encounter Qualified Code(s): W19.XXXA - Unspecified fall, initial encounter Is this a current diagnosis for this admission?: YesPlan: Orthostatic vital signs every 4 hours while awake, starting in the morning. (4) Post-tussive syncope Is this a current diagnosis for this admission?: Yes (5) COPD exacerbation Is this a current diagnosis for this admission?: YesPlan: Patient will be admitted under COPD exacerbation and pneumonia protocol. Incentive spirometry twice a day. Scheduled DuoNeb's. PRN albuterol nebs daily prednisone. Antibiotics will consist of intravenous Zithromax along with cefepime. Pharmacy to assist with dosing.. I strongly encouraged patient to notify staff should patient feel that respiratory status is worsening. Patient is a full code. I have strongly encouraged patient not to get out of bed without notifying staff , , to avoid a fall with injury. Knee high SCDs for DVT prophylaxis, along with subcutaneous heparin. Impression and plans were discussed with patient, who concurs. Time spent in evaluation and management of patient: 71 minutes. (6) Pneumonia Qualifiers: Pneumonia type: due to unspecified organism Laterality: unspecified laterality Lung location: unspecified part of lung Qualified Code(s) : J18.9 - Pneumonia, unspecified organism Is this a current diagnosis for this admission?: Yes (7) DM (diabetes mellitus), type 1 with renal complications Qualifiers: Diabetes mellitus complication detail: with chronic kidney disease Chronic kidney disease stage: on chronic dialysis Qualified Code(s): E10.22 - Type 1 diabetes mellitus with diabetic chronic kidney disease; N18.1 - Chronic kidney disease, stage 1 Is this a current diagnosis for this admission?: YesPlan: Diabetic cardiac dialysis diet. Accu-Cheks with appropriate sliding scale coverage.Resume home medications as appropriate once these have been determined and reviewed. (8) End stage renal disease Is this a current diagnosis for this admission?: YesPlan: Nephrology consult. (9) Tobacco dependency Is this a current diagnosis for this admission?: YesPlan: When necessary nicotine patch. (10) Nodule of cheek Is this a current diagnosis for this admission?: YesPlan: Outpatient follow-up and evaluation. - Inpatient Certification Based on my medical assessment, after consideration of the patient's comorbidities, presenting symptoms, or acuity I expect that the services needed warrant INPATIENT care.: Yes I certify that my determination is in accordance with my understanding of Medicare's requirements for reasonable and necessary INPATIENT services [42 CFR 412.3e].: Yes Medical Necessity: Significant Comorbidiites Make Outpatient Treatment Too Risky , Need Close Monitoring Due to Risk of Patient Decompensation, Need For Continuous Telemetry Monitoring, Need for Nebulizer Therapy and Monitoring of Response, Need for Pain Control, Need for IV Antibiotics, Risk of Diagnosis Which Will Require Inpatient Eval/Care/Monitoring Post Hospital Care: D/C or Transfer Summary
[2016-09-22] MEDS ORDERED: AZITHROMYCIN INJ 500 MG VIAL IV ONE ×2 (02:22→23:47)
[2016-09-22] MEDS ORDERED: PREDNISONE 20 MG TABLET PO ONE (02:30)
[2016-09-22] MEDS ORDERED: INFLUENZA ADLT QUAD (36MOS+) 2016-17 VAC 0.5 ML SYR IM PRN (03:06)
[2016-09-22] MEDS: ACETAMINOPHEN 325 MG TABLET PO PRN (03:35)
[2016-09-22 05:56] LABS: ABSOLUTE BASOPHILS # (AUTO) 0.1 10^3/uL (0.0-0.2); ABSOLUTE EOSINOPHILS # (AUTO) 0.1 10^3/uL (0.0-0.6); ABSOLUTE LYMPHOCYTES (AUTO) 1.1 10^3/uL (0.5-4.7); ABSOLUTE MONOCYTES (AUTO) 0.7 10^3/uL (0.1-1.4); ABSOLUTE NEUT (AUTO) 15.9 10^3/uL (1.7-8.2); BASOPHILS % (AUTO) 0.4 % (0-2); EOSINOPHILS % (AUTO) 0.3 % (0-6); HEMOGLOBIN 12.4 g/dL (13.5-17.0); HGB HCT DIFFERENCE 0.2; LYMPHOCYTES % (AUTO) 6.3 % (13-45); MEAN CORPUSCULAR HEMOGLOBIN 31.4 pg (27.0-33.4); MEAN CORPUSCULAR HGB CONC 33.5 g/dL (32.0-36.0); MEAN CORPUSCULAR VOLUME 94 fl (80-97); MONOCYTES % (AUTO) 3.8 % (3-13); RED BLOOD COUNT 3.94 10^6/uL (4.35-5.55); RED CELL DISTRIBUTION WIDTH 14.4 % (11.5-14.0); SEGMENTED NEUTROPHILS % (AUTO) 89.2 % (42-78); WHITE BLOOD COUNT 17.8 10^3/uL (4.0-10.5)
[2016-09-22 06:15] LABS: ANION GAP 19 (5-19); BLOOD UREA NITROGEN 33 mg/dL (7-20); CALCIUM 8.2 mg/dL (8.4-10.2); CARBON DIOXIDE 24 mmol/L (22-30); CHLORIDE 96 mmol/L (98-107); CREATININE RESULT 3.81 mg/dL (0.52-1.25); GLUCOSE 125 mg/dL (75-110); SODIUM 139.4 mmol/L (137-145)
[2016-09-22] MEDS: HEPARIN SOD (PORCINE) 5,000 UNIT/ML 1 ML SYRINGE SUBCUT SCH ×3 (06:28→22:08)
[2016-09-22 06:29] LABS: POTASSIUM 4.8 mmol/L (3.6-5.0)
[2016-09-22] MEDS: IPRATROPIUM/ALBUTEROL 0.5-2.5 MG/3 ML AMPUL NEB SCH ×3 (09:25→20:31)
[2016-09-22] MEDS ORDERED: CEFEPIME 2 GM/D5W RTU 2 GM/50 ML RTUPB IV SCH (10:00)
[2016-09-22] MEDS ORDERED: CEFEPIME HCL 2 GM in DEXTROSE 5%-WATER 50 ML IV SCH (10:00)
[2016-09-22] MEDS ORDERED: (PENDING PHARMACY ID) (Sertraline Hcl [Sertraline Hcl] 150 MG) PO SCH (11:00)
[2016-09-22] MEDS ORDERED: LORATADINE 10 MG TABLET PO ONE (12:00)
[2016-09-22] MEDS ORDERED: ASPIRIN 81 MG TABLET, ENT COATED PO ONE (12:00)
[2016-09-22] MEDS ORDERED: GUAIFENESIN 600 MG TABLET.SA PO ONE (12:00)
[2016-09-22] MEDS ORDERED: FLUTICASONE NASAL SPRAY 50 MCG/SPRY 120 SPRAY/16 GM NASL ONE (12:30)
[2016-09-22] MEDS ORDERED: SERTRALINE HCL 50 MG TABLET PO ONE (12:30)
--- NOTE | 2016-09-22 12:33 | PDOC PROGRESS REPORT ---
Subjective Progress Note for:: 09/22/16 Subjective:: The patient was seen earlier today on rounds. The patient states that he feels much better than when he came in however he is still dyspneic not able to fully complete sentences. The patient did complain of some abdominal discomfort the patient was noted to have fruit snacks, and packaged foods on the bedside table and actually in the bed with him. The patient denies any nausea, vomiting, diarrhea, dizziness, chest pain, heart palpitations, fevers, or chills. The patient has remained afebrile. Blood pressures have been in a good range. When prompted the patient voices no other concerns at this time. Review of systems: The rest of the review of systems is negative. Physical Exam Vital Signs: Temp Pulse Resp BP Pulse Ox 97.6 F 80 16 89/51 L 96 09/22/16 07:37 09/22/16 09:25 09/22/16 09:25 09/22/16 07:40 09/22/16 09:25 Intake & Output 09/20/16 09/21/16 09/22/16 23:59 23:59 23:59 Intake Total 489 Output Total 0 Balance 489 Weight 98.4 kg General appearance: PRESENT: no acute distress, cooperative, well-developed, well-nourished Head exam: PRESENT: atraumatic, normocephalic Eye exam: PRESENT: conjunctiva pink, EOMI, PERRLA. ABSENT: scleral icterus Ear exam: PRESENT: normal external ear exam Mouth exam: PRESENT: moist, tongue midline Neck exam: ABSENT: carotid bruit, JVD, lymphadenopathy, thyromegaly Respiratory exam: PRESENT: decreased breath sounds, rhonchi, symmetrical, tachypnea. ABSENT: rales, unlabored, wheezes Cardiovascular exam: PRESENT: RRR. ABSENT: diastolic murmur, rubs, systolic murmur Pulses: PRESENT: normal dorsalis pedis pul Vascular exam: PRESENT: normal capillary refill GI/Abdominal exam: PRESENT: normal bowel sounds, soft. ABSENT: distended, guarding, mass, organolmegaly, rebound, tenderness Rectal exam: PRESENT: deferred Extremities exam: PRESENT: full ROM, other - Left upper arm AV fistula positive bruit and thrill, opened air, asymptomatic. ABSENT: calf tenderness, clubbing, pedal edema Neurological exam: PRESENT: alert, awake, oriented to person, oriented to place , oriented to time, oriented to situation, CN II-XII grossly intact. ABSENT: motor sensory deficit Psychiatric exam: PRESENT: appropriate affect, normal mood. ABSENT: homicidal ideation, suicidal ideation Skin exam: PRESENT: dry, intact, warm. ABSENT: cyanosis, rash Results Laboratory Results: 09/22/16 05:13 09/22/16 05:13 09/22/16 09/22/16 05:13 05:13 WBC 17.8 H RBC 3.94 L Hgb 12.4 L Hct 37.0 L MCV 94 MCH 31.4 MCHC 33.5 RDW 14.4 H Plt Count 351 Seg Neutrophils % 89.2 H Lymphocytes % 6.3 L Monocytes % 3.8 Eosinophils % 0.3 Basophils % 0.4 Absolute Neutrophils 15.9 H Absolute Lymphocytes 1.1 Absolute Monocytes 0.7 Absolute Eosinophils 0.1 Absolute Basophils 0.1 Sodium 139.4 Potassium 4.8 D Chloride 96 L Carbon Dioxide 24 Anion Gap 19 BUN 33 H Creatinine 3.81 H Est GFR ( Amer) 20 L Est GFR (Non-Af Amer) 16 L Glucose 125 H Calcium 8.2 L 09/22/16 00:18 Troponin I < 0.012 Impressions: Cervical Spine CT 09/21/16 18:24 IMPRESSION: Degenerative changes without evidence for fracture Chest CT 09/21/16 18:24 IMPRESSION: No significant intrathoracic posttraumatic changes are identified. Other findings as noted above Head CT 09/21/16 18:24 IMPRESSION: No significant intracranial abnormalities were identified. Soft tissue nodule in the subcutaneous fat on the right as noted above. Other findings as noted above Assessment & Plan - Diagnosis (1) Syncope Qualifiers: Syncope type: unspecified Qualified Code(s): R55 - Syncope and collapse Is this a current diagnosis for this admission?: YesPlan: It was post tussive. Overall the patient's symptoms have improved. Has had no replication of symptoms. The patient's blood pressures are on the low side however his mapping and 65 currently. (2) Fall Qualifiers: Encounter type: initial encounter Qualified Code(s): W19.XXXA - Unspecified fall, initial encounter Is this a current diagnosis for this admission?: Yes (3) End stage renal disease Is this a current diagnosis for this admission?: YesPlan: The patient is a patient of Dr. Humphrey. She will be seen by on-call nephrology. (4) Nodule of cheek Is this a current diagnosis for this admission?: No (5) COPD exacerbation Is this a current diagnosis for this admission?: Yes (6) Pneumonia Qualifiers: Pneumonia type: due to unspecified organism Laterality: unspecified laterality Lung location: unspecified part of lung Qualified Code(s) : J18.9 - Pneumonia, unspecified organism Is this a current diagnosis for this admission?: YesPlan: Will continue antibiotic coverage. Will renally adjust. Will add flutter valve and Mucinex. (7) DM (diabetes mellitus), type 1 with renal complications Qualifiers: Diabetes mellitus complication detail: with chronic kidney disease Chronic kidney disease stage: on chronic dialysis Qualified Code(s): E10.22 - Type 1 diabetes mellitus with diabetic chronic kidney disease; N18.1 - Chronic kidney disease, stage 1 Is this a current diagnosis for this admission?: YesPlan: Will continue home meds (8) Left inguinal hernia Is this a current diagnosis for this admission?: No (9) Tobacco dependency Is this a current diagnosis for this admission?: Yes (10) Opiate dependence, continuous Is this a current diagnosis for this admission?: YesPlan: will continue home meds - Time Time Spent with patient: 35 or more minutes Medications reviewed and adjusted accordingly: Yes Anticipated discharge: Home Within: within 48 hours
[2016-09-22] MEDS ORDERED: CHOLECALCIFEROL (D3) 1,000 UNIT TABLET PO ONE (13:00)
[2016-09-22] MEDS ORDERED: LANSOPRAZOLE 30 MG TAB.RAP.DR PO ONE (13:00)
[2016-09-22] MEDS ORDERED: OMEGA-3 ACID ETHYL ESTERS 1 GM CAPSULE PO ONE (13:00)
[2016-09-22] MEDS: INSULIN LISPRO 100 UNIT/ML 3 ML VIAL SUBCUT PRN ×2 (13:57→18:20)
[2016-09-22] MEDS ORDERED: BUDESONIDE/FORMOTEROL 80-4.5 MCG 60 PUFF/6.9 GM MDI IH ONE (14:00)
[2016-09-22] MEDS ORDERED: FATTY ACIDS PO SCH (18:00)
[2016-09-22] MEDS ORDERED: FISH OIL PO SCH (18:00)
[2016-09-22] MEDS ORDERED: OMEGA PO SCH (18:00)
[2016-09-22] MEDS: OXYCODONE HCL IR 5 MG TABLET PO PRN (18:18)
--- NOTE | 2016-09-22 19:44 | PDOC CONSULTATION ---
Consultation Consult Date: 09/22/16 Attending physician:: STEF CACERES Consult reason:: I was asked by the hospitalist service to see the patient to supervise dialysis while here in the hospital. History of Present Illness Admission Date/PCP: 09/21/16 22:48 CHANI LAWS MD History of Present Illness: GET BURGESS is a 61 year old male, with end-stage renal disease, on Monday hemodialysis, status post dialysis session earlier today , along with insulin-dependent diabetes mellitus, mild depression without suicidal or homicidal ideation, hyperlipidemia, chronic back pain, mild bruising , esophageal reflux disease, one and a half pack-a-day smoker, with probable underlying COPD who presents to the emergency room for evaluation of above complaint. Was dialyzed earlier today, with a bit more fluid taken off than usual. Went to [facility] directly after dialysis. Suffered a post tussive syncopal episode, which, per patient, has been a chronic issue for 5 years. Fell and struck his head and perhaps his chest wall. Complaining now of bilateral chest wall pain, increasing shortness of breath along with occipital headache. No Chest pain prior to the episode. No nausea vomiting, fever or chills. Was started on antibiotic, unknown specific drug, yesterday for "infection." Patient uncertain as to exactly what infection. A bit of a poor historian at times. No other antibiotic last 3 months. No hospitalization last 3 months. Patient had a severe episode of coughing yesterday and states when he finished coughing, it felt as though he were in the "twilight zone." No biting of the tongue. No fecal or urinary incontinence. Does have a history of seizures apparently when his renal failure was initially discovered 5 years ago, but has never been on antiepileptics. No subsequent seizures. Patient complains of some headache. He has some chills but denies any fever. He said he has some problem with swallowing which has been going on for a while. He has not been eating much because of the swallowing issue. He is short of breath and is having cough productive of yellowish phlegm. Patient is being treated with antibiotics. Patient has been on dialysis for 4 years under the supervision of Dr. Laws of [facility]. He was previously on hemodialysis and then switched to by mouth tenial dialysis for 2 years. Recently about 5 weeks ago he switched again to hemodialysis. He was supposed to have a preop today for removal of his peritoneal dialysis catheter on September [address] Nita Belcher. His last hemodialysis was yesterday Monday. He is due for dialysis tomorrow. Past Medical History Cardiac Medical History: Reports: Coronary Artery Disease - CHOLESTEROL, Hyperlipidemia, Hypertension-primary, Myocardial Infarction Pulmonary Medical History: Reports: Asthma, Chronic Obstructive Pulmonary Disease (COPD), Pneumonia EENT Medical History: Reports: Ears - Partial hearing loss, Other - Easy bruising Neurological Medical History: Reports: Ischemic CVA - Mild left hemiparesis, Seizures - History of seizure when renal failure discovered; never on antiepileptic Endocrine Medical History: Reports: Diabetes Mellitus Type 2 Renal/ Medical History: Reports: End Stage Renal Disease GI Medical History: Reports: Gastroesophageal Reflux Disease, Other - Gastric ulcer, history of GI bleed Musculoskeltal Medical History: Reports: Arthritis, Other - Chronic back pain Skin Medical History: Reports: Other - "Knot" anterior to rt. ear; 1st noted several yrs ago. Psychiatric Medical History: Reports: Depression, Tobacco Dependency Past Surgical History Past Surgical History: Reports: Dialysis Access Surgery AVF, Orthopedic Surgery , Other - Peritoneal dialysis catheter placement Social History Lives with: Family - Sister and 4 grandchildren Smoking Status: Current Every Day Smoker - Smokes since 7 years old. Cigarettes Packs Per Day: 1 Last Time Smoked: 09/21/16 Frequency of Alcohol Use: None Hx Recreational Drug Use: No Drugs: None Hx Prescription Drug Abuse: No - Advance Directive Resuscitation Status: Full Code Family History Family History: Arthritis - Sr., CAD - Sr., Chronic Kidney Disease - Mother, DM - Parents, Malignancy - Monitor Parental Family History Reviewed: Yes Children Family History Reviewed: Yes Sibling(s) Family History Reviewed.: Yes Medication/Allergy Home Medications: Albuterol Sulfate [Proair HFA Inhalation Aerosol 8.5 gm MDI] 2 puff IH Q4HP PRN 09/22/16 Aspirin [Adult Low Dose Aspirin EC] 81 mg PO DAILY 09/22/16 Atorvastatin Calcium [Lipitor 80 mg Tablet] 80 mg PO DAILY 09/22/16 Budesonide/Formoterol Fumarate [Symbicort HFA 160-4.5 mcg Inhaler 6 gm] 1 puff IH Q12 09/22/16 Cholecalciferol (Vitamin D3) [Vitamin D3 2000 unit Tablet] 2,000 unit PO DAILY 09/22/16 Folic Acid/Vitamin B Comp W-C [Joie-Raissa Tablet] 0.8 mg PO DAILY 09/22/16 Gabapentin [Neurontin 300 mg Capsule] 300 mg PO BID 09/22/16 Insulin Degludec [Tresiba Flextouch U-200] 72 unit SQ DAILY 09/22/16 Loratadine [Claritin 10 mg Tablet] 10 mg PO DAILY 09/22/16 Meloxicam [Mobic 7.5 mg Tablet] 7.5 mg PO DAILY 09/22/16 [place]-3 Acid Ethyl Esters [Lovaza 1 gm Capsule] 2 gm PO BID 09/22/16 Omeprazole 40 mg PO DAILY 09/22/16 Oxycodone HCl 15 mg PO Q6HP PRN 09/22/16 Sertraline HCl [Zoloft 50 mg Tablet] 150 mg PO DAILY 09/22/16 Allergies/Adverse Reactions: No Known Allergies Allergy (Verified 09/21/16 17:55) Review of Systems All systems: reviewed and no additional remarkable complaints except as stated Review of Systems: Constitutional: ABSENT: fatigue, fever(s), headache(s), weight gain, weight loss ; admits chills Eyes: ABSENT: visual disturbances Ears: ABSENT: hearing changes Cardiovascular: ABSENT: chest pain, dyspnea on exertion, edema, orthropnea, palpitations Respiratory: ABSENT: cough, hemoptysis, admits shortness of breath Gastrointestinal: ABSENT: abdominal pain, constipation, diarrhea, hematemesis, hematochezia, nausea, vomiting; describes dysphagia Genitourinary: ABSENT: dysuria, hematuria Musculoskeletal: ABSENT: joint swelling Integumentary: ABSENT: rash, wounds Neurological: ABSENT: abnormal gait, abnormal speech, confusion, dizziness, focal weakness, numbness, syncope; admits headache Psychiatric: ABSENT: anxiety, depression Endocrine: ABSENT: cold intolerance, heat intolerance, polydipsia, polyuria Hematologic/Lymphatic: ABSENT: easy bleeding, easy bruising, lymphadenopathy Physical Exam Vital Signs: Temp Pulse Resp BP Pulse Ox 98.3 F 79 16 118/65 96 09/22/16 12:07 09/22/16 14:26 09/22/16 14:26 09/22/16 12:07 09/22/16 14:26 Intake & Output 09/21/16 09/22/16 09/23/16 06:59 06:59 06:59 Intake Total 489 973 Output Total 0 100 Balance 489 873 Weight 98.4 kg Exam: General appearance: no acute distress, cooperative, well-developed, well- nourished Head exam: PRESENT: atraumatic, normocephalic Eye exam: PRESENT: Conjunctiva [place], EOMI, PERRLA. ABSENT: conjunctival injection, scleral icterus Mouth exam: PRESENT: moist, neck supple, tongue midline Neck exam: PRESENT: full ROM. ABSENT: carotid bruit, JVD, lymphadenopathy, thyromegaly Respiratory exam: PRESENT: clear to auscultation bilaterally. ABSENT: rales, rhonchi, stridor, wheezes Cardiovascular exam: PRESENT: RRR, +S1, +S2. ABSENT: systolic murmur Pulses: PRESENT: normal radial pulses, normal dorsalis pedis pulses, he has left upper arm AV fistula with bruit and creatinine GI/Abdominal exam: PRESENT: normal bowel sounds, soft. He still has his peritoneal dialysis catheter on the left lower quadrant area. His transfer set appears to be yellowish in color with most likely a lot of fibrin. It was attempted to be aspirated but nothing came out. ABSENT: guarding, mass, tenderness Rectal exam: deferred Extremities exam: PRESENT: full ROM. ABSENT: calf tenderness, pedal edema Musculoskeletal: PRESENT: full ROM. ABSENT: deformity Neurological exam: PRESENT: alert, Awake, Oriented to person, Oriented to place , Oriented to time, reflexes normal, CN II-XII grossly intact. ABSENT: motor sensory deficit Psychiatric exam: PRESENT: appropriate affect, normal mood. ABSENT: homicidal ideation, suicidal ideation Skin exam: PRESENT: intact, dry, warm. ABSENT: rash Results Laboratory Results: 09/22/16 05:13 09/22/16 05:13 09/22/16 09/22/16 05:13 05:13 WBC 17.8 H RBC 3.94 L Hgb 12.4 L Hct 37.0 L MCV 94 MCH 31.4 MCHC 33.5 RDW 14.4 H Plt Count 351 Seg Neutrophils % 89.2 H Lymphocytes % 6.3 L Monocytes % 3.8 Eosinophils % 0.3 Basophils % 0.4 Absolute Neutrophils 15.9 H Absolute Lymphocytes 1.1 Absolute Monocytes 0.7 Absolute Eosinophils 0.1 Absolute Basophils 0.1 Sodium 139.4 Potassium 4.8 D Chloride 96 L Carbon Dioxide 24 Anion Gap 19 BUN 33 H Creatinine 3.81 H Est GFR ( Amer) 20 L Est GFR (Non-Af Amer) 16 L Glucose 125 H Calcium 8.2 L 09/22/16 00:18 Troponin I < 0.012 Impressions: Cervical Spine CT 09/21/16 18:24 IMPRESSION: Degenerative changes without evidence for fracture Chest CT 09/21/16 18:24 IMPRESSION: No significant intrathoracic posttraumatic changes are identified. Other findings as noted above Head CT 09/21/16 18:24 IMPRESSION: No significant intracranial abnormalities were identified. Soft tissue nodule in the subcutaneous fat on the right as noted above. Other findings as noted above Assessment & Plan - Diagnosis (1) End stage renal disease Is this a current diagnosis for this admission?: YesPlan: We will schedule the patient for hemodialysis tomorrow. We will supervise dialysis will the patient is here in the hospital. We have to monitor his peritoneal dialysis catheter. It definitely needs to be removed. I will try to inform Dr. Belcher of the patient's admission. (2) Syncope Qualifiers: Syncope type: unspecified Qualified Code(s): R55 - Syncope and collapse Is this a current diagnosis for this admission?: YesPlan: Management, Defer to primary service (3) Pneumonia Qualifiers: Pneumonia type: due to unspecified organism Laterality: unspecified laterality Lung location: unspecified part of lung Qualified Code(s) : J18.9 - Pneumonia, unspecified organism Is this a current diagnosis for this admission?: YesPlan: Primary service managing. - Notes Notes: Thank you very much for this consultation. I will supervise dialysis during this admission. - Time Time Spent: 50 to 70 Minutes
[2016-09-22] MEDS ORDERED: AZITHROMYCIN 500 MG in DEXTROSE 5%-WATER 250 ML IV SCH (22:00)
[2016-09-22] MEDS ORDERED: INSULIN DEGLUDEC 80 UNIT SQ SCH (22:00)
[2016-09-22] MEDS: ATORVASTATIN CALCIUM 80 MG TABLET PO SCH (22:09)
[2016-09-22] MEDS: GUAIFENESIN 600 MG TABLET.SA PO SCH (22:10)
[2016-09-22] MEDS: GABAPENTIN 300 MG CAPSULE PO SCH (22:11)
[2016-09-22] MEDS: FLUTICASONE NASAL SPRAY 50 MCG/SPRY 120 SPRAY/16 GM NASL SCH (22:14)
[2016-09-22] MEDS: MONTELUKAST SODIUM 10 MG TABLET PO SCH (22:14)
[2016-09-23] MEDS ORDERED: AZITHROMYCIN INJ 500 MG VIAL IV SCH (00:05)
[2016-09-23] MEDS ORDERED: AZITHROMYCIN 500 MG in DEXTROSE 5%-WATER 250 ML IV SCH (00:30)
[2016-09-23] MEDS: HEPARIN SOD (PORCINE) 5,000 UNIT/ML 1 ML SYRINGE SUBCUT SCH ×3 (05:54→21:22)
[2016-09-23] MEDS: LANSOPRAZOLE 30 MG TAB.RAP.DR PO SCH (06:02)
[2016-09-23 07:00] LABS: ABSOLUTE BASOPHILS # (AUTO) 0.1 10^3/uL (0.0-0.2); ABSOLUTE EOSINOPHILS # (AUTO) 0.2 10^3/uL (0.0-0.6); ABSOLUTE LYMPHOCYTES (AUTO) 3.6 10^3/uL (0.5-4.7); ABSOLUTE MONOCYTES (AUTO) 1.4 10^3/uL (0.1-1.4); ABSOLUTE NEUT (AUTO) 9.7 10^3/uL (1.7-8.2); BASOPHILS % (AUTO) 0.4 % (0-2); EOSINOPHILS % (AUTO) 1.1 % (0-6); HEMATOCRIT 35.5 % (37.9-51.0); HEMOGLOBIN 11.7 g/dL (13.5-17.0); HGB HCT DIFFERENCE -0.4; MEAN CORPUSCULAR HEMOGLOBIN 31.1 pg (27.0-33.4); MEAN CORPUSCULAR HGB CONC 32.9 g/dL (32.0-36.0); MEAN CORPUSCULAR VOLUME 95 fl (80-97); MONOCYTES % (AUTO) 9.4 % (3-13); RED BLOOD COUNT 3.75 10^6/uL (4.35-5.55); RED CELL DISTRIBUTION WIDTH 14.4 % (11.5-14.0); SEGMENTED NEUTROPHILS % (AUTO) 65.1 % (42-78)
[2016-09-23 07:16] LABS: ANION GAP 19 (5-19); BLOOD UREA NITROGEN 57 mg/dL (7-20); CALCIUM 7.8 mg/dL (8.4-10.2); CARBON DIOXIDE 25 mmol/L (22-30); CHLORIDE 93 mmol/L (98-107); CREATININE RESULT 5.21 mg/dL (0.52-1.25); GLUCOSE 91 mg/dL (75-110); POTASSIUM 4.3 mmol/L (3.6-5.0)
[2016-09-23] MEDS: IPRATROPIUM/ALBUTEROL 0.5-2.5 MG/3 ML AMPUL NEB SCH ×3 (09:01→20:02)
[2016-09-23] MEDS ORDERED: OMEPRAZOLE PO SCH (10:00)
[2016-09-23] MEDS ORDERED: CHOLECALCIFEROL PO SCH (10:00)
[2016-09-23] MEDS ORDERED: (PENDING PHARMACY ID) (Vit B Cmplx 3/Fa/Vit C/Biotin [Rena-Vite Rx Tablet] 1 EACH) PO SCH (10:00)
[2016-09-23] MEDS: FOLIC ACID/VITAMIN B COMP W-C CAPSULE PO SCH (10:16)
[2016-09-23] MEDS: FLUTICASONE NASAL SPRAY 50 MCG/SPRY 120 SPRAY/16 GM NASL SCH ×2 (10:17→21:26)
[2016-09-23] MEDS: BUDESONIDE/FORMOTEROL 80-4.5 MCG 60 PUFF/6.9 GM MDI IH SCH (10:17)
[2016-09-23] MEDS: PREDNISONE 20 MG TABLET PO SCH (10:18)
[2016-09-23] MEDS: CHOLECALCIFEROL (D3) 1,000 UNIT TABLET PO SCH (10:18)
[2016-09-23] MEDS: LORATADINE 10 MG TABLET PO SCH (10:19)
[2016-09-23] MEDS: ASPIRIN 81 MG TABLET, ENT COATED PO SCH (10:19)
[2016-09-23] MEDS: MELOXICAM 7.5 MG TABLET PO SCH (10:19)
[2016-09-23] MEDS: SERTRALINE HCL 50 MG TABLET PO SCH (10:19)
[2016-09-23] MEDS: OMEGA-3 ACID ETHYL ESTERS 1 GM CAPSULE PO SCH (10:19)
[2016-09-23] MEDS: GUAIFENESIN 600 MG TABLET.SA PO SCH ×2 (10:19→21:22)
[2016-09-23] MEDS: CEFEPIME HCL 2 GM in DEXTROSE 5%-WATER 50 ML IV SCH (10:24)
[2016-09-23] MEDS: AZITHROMYCIN 500 MG in DEXTROSE 5%-WATER 250 ML IV SCH (10:24)
[2016-09-23] MEDS: INSULIN LISPRO 100 UNIT/ML 3 ML VIAL SUBCUT PRN ×3 (11:42→21:24)
--- NOTE | 2016-09-23 14:42 | PDOC PROGRESS REPORT ---
Subjective Progress Note for:: 09/23/16 Subjective:: I'm seeing the patient during the dialysis this afternoon. Patient complaining of some neck stiffness starting this morning. He said his cough is getting better now. While on dialysis this afternoon he started coughing and for a brief moment he seems to just be staring in space for a few seconds. He then regained consciousness and started talking. He is oriented. He is otherwise tolerating dialysis and his blood pressure is being monitored and is currently within normal limits. Physical Exam Vital Signs: Temp Pulse Resp BP Pulse Ox 97.6 F 93 16 106/62 97 09/23/16 11:21 09/23/16 14:14 09/23/16 14:14 09/23/16 11:21 09/23/16 14:14 Intake & Output 09/22/16 09/23/16 09/24/16 06:59 06:59 06:59 Intake Total 489 1667 480 Output Total 0 100 295 Balance 489 1567 185 Weight 98.4 kg 100.4 kg Vitals during dialysis treatment: Blood pressure 126/69, heart rate of 77, blood flow rate of 450 mL per minute, dialysate flow rate of 600 mL per minute. Exam: General appearance: PRESENT: no acute distress, cooperative, well-developed, well-nourished Head exam: PRESENT: atraumatic, normocephalic Eye exam: PRESENT: conjunctiva pink, PERRLA. ABSENT: scleral icterus Neck exam: ABSENT: JVD Respiratory exam: PRESENT: Diminished breath sounds. ABSENT: crackles, rales, rhonchi, unlabored, wheezes Cardiovascular exam: PRESENT: Regular rate rhythm -+S1, +S2. ABSENT: diastolic murmur, systolic murmur GI/Abdominal exam: PRESENT: normal bowel sounds, soft. ABSENT: guarding, mass, tenderness Extremities exam: ABSENT: No edema Neurological exam: PRESENT: alert, awake, oriented to person, place and time. Skin exam: PRESENT: dry, warm, Results Laboratory Results: 09/23/16 06:22 09/23/16 06:22 09/23/16 09/23/16 06:22 06:22 WBC 15.0 H RBC 3.75 L Hgb 11.7 L Hct 35.5 L MCV 95 MCH 31.1 MCHC 32.9 RDW 14.4 H Plt Count 349 Seg Neutrophils % 65.1 Lymphocytes % 24.0 Monocytes % 9.4 Eosinophils % 1.1 Basophils % 0.4 Absolute Neutrophils 9.7 H Absolute Lymphocytes 3.6 Absolute Monocytes 1.4 Absolute Eosinophils 0.2 Absolute Basophils 0.1 Sodium 137.0 Potassium 4.3 Chloride 93 L Carbon Dioxide 25 Anion Gap 19 BUN 57 H Creatinine 5.21 H Est GFR ( Amer) 14 L Est GFR (Non-Af Amer) 11 L Glucose 91 Calcium 7.8 L 09/22/16 00:18 Troponin I < 0.012 Impressions: Cervical Spine CT 09/21/16 18:24 IMPRESSION: Degenerative changes without evidence for fracture Chest CT 09/21/16 18:24 IMPRESSION: No significant intrathoracic posttraumatic changes are identified. Other findings as noted above Head CT 09/21/16 18:24 IMPRESSION: No significant intracranial abnormalities were identified. Soft tissue nodule in the subcutaneous fat on the right as noted above. Other findings as noted above Assessment & Plan - Diagnosis (1) End stage renal disease Is this a current diagnosis for this admission?: YesPlan: We will do dialysis today for [3] hours, using the patient's AV fistula, with [2 ] potassium bath, blood flow rate of 450 mL per minute, dialysate flow rate of [ 600] mL per minute, ultrafiltration up to do dry weight of 98.8 kg as tolerated by blood pressure, [no heparin] and no Procrit with during dialysis. We'll continue to monitor the patient throughout dialysis treatment. If blood pressure starts going down I instructed the dialysis nurse to decrease ultrafiltration rate. We'll continue hemodialysis support while here in the hospital. (2) Syncope Qualifiers: Syncope type: unspecified Qualified Code(s): R55 - Syncope and collapse Is this a current diagnosis for this admission?: YesPlan: Patient has a brief moment of staring into space for a few seconds while coughing while here in dialysis. It appears like a vasovagal reaction. Patient may ultimately need to be evaluated by a behavioral assistant because of repeated episodes like this. We will defer management to primary service. (3) Pneumonia Qualifiers: Pneumonia type: due to unspecified organism Laterality: unspecified laterality Lung location: unspecified part of lung Qualified Code(s) : J18.9 - Pneumonia, unspecified organism Is this a current diagnosis for this admission?: YesPlan: On antibiotics per primary service. - Time Time with patient: 15-25 minutes
--- NOTE | 2016-09-23 15:19 | PDOC PROGRESS REPORT ---
Subjective Progress Note for:: 09/23/16 Subjective:: The patient was seen earlier today on rounds. The patient states that he feels much better than when he came in however he is still dyspneic but is able to fully complete sentences the patient did complain of some abdominal discomfort the patient was noted to have fruit snacks, and packaged foods on the bedside table and actually in the bed with him. The patient denies any nausea, vomiting , diarrhea, dizziness, chest pain, heart palpitations, fevers, or chills. The patient has remained afebrile. Blood pressures have been in a good range. When prompted the patient voices no other concerns at this time. The patient did have an episode of significant cough with brief syncope. The patient playground monitor noted sinus rhythm with spontaneous resolution. Chest the case with nephrology Dr. Waller. 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 Dalton. [facility] The patient gave a history of having this been a process for 5 years. Review of systems: The rest of the review of systems is negative. Physical Exam Vital Signs: Temp Pulse Resp BP Pulse Ox 97.6 F 93 16 106/62 97 09/23/16 11:21 09/23/16 14:14 09/23/16 14:14 09/23/16 11:21 09/23/16 14:14 Intake & Output 09/21/16 09/22/16 09/23/16 23:59 23:59 23:59 Intake Total 1462 1174 Output Total 100 295 Balance 1362 879 Weight 98.4 kg 100.4 kg General appearance: PRESENT: no acute distress, cooperative, well-developed, well-nourished Head exam: PRESENT: atraumatic, normocephalic Eye exam: PRESENT: conjunctiva pink, EOMI, PERRLA. ABSENT: scleral icterus Ear exam: PRESENT: normal external ear exam Mouth exam: PRESENT: moist, tongue midline Neck exam: ABSENT: carotid bruit, JVD, lymphadenopathy, thyromegaly Respiratory exam: PRESENT: decreased breath sounds, rhonchi, symmetrical, tachypnea. ABSENT: rales, unlabored, wheezes Cardiovascular exam: PRESENT: RRR. ABSENT: diastolic murmur, rubs, systolic murmur Pulses: PRESENT: normal dorsalis pedis pul Vascular exam: PRESENT: normal capillary refill GI/Abdominal exam: PRESENT: normal bowel sounds, soft. ABSENT: distended, guarding, mass, organolmegaly, rebound, tenderness Rectal exam: PRESENT: deferred Extremities exam: PRESENT: full ROM, other - Left upper arm AV fistula positive bruit and thrill, opened air, asymptomatic. ABSENT: calf tenderness, clubbing, pedal edema Neurological exam: PRESENT: alert, awake, oriented to person, oriented to place , oriented to time, oriented to situation, CN II-XII grossly intact. ABSENT: motor sensory deficit Psychiatric exam: PRESENT: appropriate affect, normal mood. ABSENT: homicidal ideation, suicidal ideation Skin exam: PRESENT: dry, intact, warm. ABSENT: cyanosis, rash Results Laboratory Results: 09/23/16 06:22 09/23/16 06:22 09/23/16 09/23/16 06:22 06:22 WBC 15.0 H RBC 3.75 L Hgb 11.7 L Hct 35.5 L MCV 95 MCH 31.1 MCHC 32.9 RDW 14.4 H Plt Count 349 Seg Neutrophils % 65.1 Lymphocytes % 24.0 Monocytes % 9.4 Eosinophils % 1.1 Basophils % 0.4 Absolute Neutrophils 9.7 H Absolute Lymphocytes 3.6 Absolute Monocytes 1.4 Absolute Eosinophils 0.2 Absolute Basophils 0.1 Sodium 137.0 Potassium 4.3 Chloride 93 L Carbon Dioxide 25 Anion Gap 19 BUN 57 H Creatinine 5.21 H Est GFR ( Amer) 14 L Est GFR (Non-Af Amer) 11 L Glucose 91 Calcium 7.8 L 09/22/16 00:18 Troponin I < 0.012 Impressions: Cervical Spine CT 09/21/16 18:24 IMPRESSION: Degenerative changes without evidence for fracture Chest CT 09/21/16 18:24 IMPRESSION: No significant intrathoracic posttraumatic changes are identified. Other findings as noted above Head CT 09/21/16 18:24 IMPRESSION: No significant intracranial abnormalities were identified. Soft tissue nodule in the subcutaneous fat on the right as noted above. Other findings as noted above Assessment & Plan - Diagnosis (1) Syncope Qualifiers: Syncope type: unspecified Qualified Code(s): R55 - Syncope and collapse Is this a current diagnosis for this admission?: YesPlan: It was post tussive. Overall the patient's symptoms have improved. The patient's blood pressures are stable and maintaining a map of greater than 65. (2) Fall Qualifiers: Encounter type: initial encounter Qualified Code(s): W19.XXXA - Unspecified fall, initial encounter Is this a current diagnosis for this admission?: Yes (3) End stage renal disease Is this a current diagnosis for this admission?: YesPlan: The patient is a patient of Dr. Humphrey. Do appreciate Dr. morgan's input. (4) Nodule of cheek Is this a current diagnosis for this admission?: No (5) COPD exacerbation Is this a current diagnosis for this admission?: Yes (6) Pneumonia Qualifiers: Pneumonia type: due to unspecified organism Laterality: unspecified laterality Lung location: unspecified part of lung Qualified Code(s) : J18.9 - Pneumonia, unspecified organism Is this a current diagnosis for this admission?: YesPlan: Will continue antibiotic coverage. Will renally adjust. Will add flutter valve and Mucinex. (7) DM (diabetes mellitus), type 1 with renal complications Qualifiers: Diabetes mellitus complication detail: with chronic kidney disease Chronic kidney disease stage: on chronic dialysis Qualified Code(s): E10.22 - Type 1 diabetes mellitus with diabetic chronic kidney disease; N18.1 - Chronic kidney disease, stage 1 Is this a current diagnosis for this admission?: YesPlan: Will continue home meds (8) Left inguinal hernia Is this a current diagnosis for this admission?: No (9) Tobacco dependency Is this a current diagnosis for this admission?: Yes (10) Opiate dependence, continuous Is this a current diagnosis for this admission?: YesPlan: will continue home meds - Time Time Spent with patient: 25-34 minutes Medications reviewed and adjusted accordingly: Yes Anticipated discharge: Home Within: within 48 hours
[2016-09-23] MEDS: OXYCODONE HCL IR 5 MG TABLET PO PRN (20:25)
[2016-09-23] MEDS: GABAPENTIN 300 MG CAPSULE PO SCH (21:22)
[2016-09-23] MEDS: ATORVASTATIN CALCIUM 80 MG TABLET PO SCH (21:22)
[2016-09-23] MEDS: MONTELUKAST SODIUM 10 MG TABLET PO SCH (21:22)
[2016-09-24] MEDS: IPRATROPIUM/ALBUTEROL 0.5-2.5 MG/3 ML AMPUL NEB SCH ×2 (08:27→15:55)
[2016-09-24] MEDS ORDERED: INSULIN DEGLUDEC 72 UNIT SQ SCH (10:00)
[2016-09-24] MEDS ORDERED: (PENDING PHARMACY ID) (Folic Acid/Vitamin B Comp W-C [Rena-Vite Tablet] 0.8 MG) PO SCH (10:00)
[2016-09-24] MEDS ORDERED: (PENDING PHARMACY ID) (Cholecalciferol (Vitamin D3) [Vitamin D3 2000 Unit Tablet] 2,000 UN PO SCH (10:00)
[2016-09-24] MEDS ORDERED: PHARMACY COMMUNICATION ORDER MC NR (10:15)
[2016-09-24] MEDS: SERTRALINE HCL 50 MG TABLET PO SCH (10:41)
[2016-09-24] MEDS: FOLIC ACID/VITAMIN B COMP W-C CAPSULE PO SCH ×2 (10:41→13:01)
[2016-09-24] MEDS: ASPIRIN 81 MG TABLET, ENT COATED PO SCH (10:41)
[2016-09-24] MEDS: LORATADINE 10 MG TABLET PO SCH (10:42)
[2016-09-24] MEDS: OMEGA-3 ACID ETHYL ESTERS 1 GM CAPSULE PO SCH (10:42)
[2016-09-24] MEDS: CHOLECALCIFEROL (D3) 1,000 UNIT TABLET PO SCH ×2 (10:42→13:01)
[2016-09-24] MEDS: GUAIFENESIN 600 MG TABLET.SA PO SCH ×2 (10:42→22:18)
[2016-09-24] MEDS: FLUTICASONE NASAL SPRAY 50 MCG/SPRY 120 SPRAY/16 GM NASL SCH ×2 (10:43→22:26)
[2016-09-24] MEDS: BUDESONIDE/FORMOTEROL 80-4.5 MCG 60 PUFF/6.9 GM MDI IH SCH (10:43)
[2016-09-24] MEDS: MELOXICAM 7.5 MG TABLET PO SCH (10:43)
[2016-09-24] MEDS: CEFEPIME HCL 2 GM in DEXTROSE 5%-WATER 50 ML IV SCH (10:44)
[2016-09-24] MEDS: OXYCODONE HCL IR 5 MG TABLET PO PRN ×2 (10:44→22:18)
[2016-09-24] MEDS: LANSOPRAZOLE 30 MG TAB.RAP.DR PO SCH ×2 (10:46→13:32)
[2016-09-24] MEDS: HEPARIN SOD (PORCINE) 5,000 UNIT/ML 1 ML SYRINGE SUBCUT SCH ×3 (10:46→22:25)
--- NOTE | 2016-09-24 12:45 | PDOC PROGRESS REPORT ---
Subjective Progress Note for:: 09/24/16 Subjective:: Patient complains of shortness of breath. He reports it is improving from yesterday. Patient reports that his syncope has been going on for years and is why he is currently disabled. Patient has not had a bowel movement in several days. Patient denies chest pain, abdominal pain, nausea, vomiting, fevers, chills, diarrhea, headache, new onset weakness. Physical Exam Vital Signs: Temp Pulse Resp BP Pulse Ox 97.5 F 81 18 124/76 97 09/24/16 04:03 09/24/16 04:03 09/24/16 04:03 09/24/16 04:03 09/24/16 04:03 Intake & Output 09/23/16 09/24/16 09/25/16 06:59 06:59 07:59 Intake Total 1667 1885 Output Total 100 2745 Balance 1567 -860 Weight 100.4 kg 100.9 kg Exam: General: Awake alert and oriented x3, no acute respiratory distress HEENT: AT/NC, PERRL, EOMI, oropharynx is moist, pink, no scleral icterus, no conjunctival injection Neck: No JVD, trachea midline Chest: Clear to auscultation bilaterally, no wheezes rhonchi or rales CV: Regular rate and rhythm, normal S1 and S2, no murmur, rub, or gallop Abdomen: Soft, nontender to palpation, nondistended, hypoactive bowel sounds; no rebound, rigidity, or guarding; peritoneal dialysis catheter in place without surrounding erythema or exudate. Extremities: No cyanosis, clubbing or edema Neuro: Cranial nerves II through XII are grossly intact without focal deficits; awake alert and oriented x3 Psych: Normal mood and affect Results Laboratory Results: 09/23/16 06:22 09/23/16 06:22 09/22/16 00:18 Troponin I < 0.012 Impressions: Cervical Spine CT 09/21/16 18:24 IMPRESSION: Degenerative changes without evidence for fracture Chest CT 09/21/16 18:24 IMPRESSION: No significant intrathoracic posttraumatic changes are identified. Other findings as noted above Head CT 09/21/16 18:24 IMPRESSION: No significant intracranial abnormalities were identified. Soft tissue nodule in the subcutaneous fat on the right as noted above. Other findings as noted above Carotid Doppler Study 09/23/16 00:00 IMPRESSION: NO HEMODYNAMICALLY SIGNIFICANT STENOSIS. Assessment & Plan - Diagnosis (1) COPD exacerbation Is this a current diagnosis for this admission?: YesPlan: Patient has a COPD exacerbation and likely cough related syncope. Continue scheduled nebulized treatments. Will place a VQ scan as patient did have a syncopal episode. Despite the fact reports she's been going on for years, his chest x-rays grossly negative for underlying pneumonia. Continue pulmonary toileting. (2) Opiate dependence, continuous Is this a current diagnosis for this admission?: YesPlan: Continue patient's home medications. Place patient on Maalox and Colace. (3) Syncope Qualifiers: Syncope type: unspecified Qualified Code(s): R55 - Syncope and collapse Is this a current diagnosis for this admission?: YesPlan: We'll check a VQ scan. Patient has reported this has been going on for years. Likely represents vasovagal syncope. (4) End stage renal disease Is this a current diagnosis for this admission?: YesPlan: Defer to nephrology (5) Pneumonia Qualifiers: Pneumonia type: due to unspecified organism Laterality: unspecified laterality Lung location: unspecified part of lung Qualified Code(s) : J18.9 - Pneumonia, unspecified organism Is this a current diagnosis for this admission?: YesPlan: Patient doesn't have pneumonia based on chest x-ray. Clinically patient also does not have chest x-ray findings consistent with this picture. I believe patient just has a COPD exacerbation. Encourage incentive spirometry and flutter valve. (6) DM (diabetes mellitus), type 1 with renal complications Qualifiers: Diabetes mellitus complication detail: with chronic kidney disease Chronic kidney disease stage: on chronic dialysis Qualified Code(s): E10.22 - Type 1 diabetes mellitus with diabetic chronic kidney disease; N18.1 - Chronic kidney disease, stage 1 Is this a current diagnosis for this admission?: YesPlan: Patient currently requiring very little insulin. We did discuss that based on his diet, patient would be better to control his diabetes at home. Have place patient on Lantus 10 units subcutaneous twice a day. (7) Tobacco dependency Is this a current diagnosis for this admission?: YesPlan: Patient reports that he is down from sixpacks to 2 packs. Have given nicotine patch. - Time Time Spent with patient: 25-34 minutes Medications reviewed and adjusted accordingly: Yes Anticipated discharge: Home, Home with Homehealth Within: within 48 hours, within 72 hours
[2016-09-24] MEDS: PREDNISONE 20 MG TABLET PO SCH ×2 (13:04→13:32)
[2016-09-24] MEDS: AZITHROMYCIN 500 MG in DEXTROSE 5%-WATER 250 ML IV SCH (13:04)
[2016-09-24] MEDS: POLYETHYLENE GLYCOL 3350 POWDER 17 GM/1 PACKET PO SCH (13:33)
[2016-09-24] MEDS: DOCUSATE SODIUM 100 MG CAPSULE PO SCH (18:27)
[2016-09-24] MEDS ORDERED: INSULIN GLARGINE,HUM.REC.ANLOG 1,000 UNIT/10 ML UNIT SUBCUT SCH (22:00)
[2016-09-24] MEDS: MONTELUKAST SODIUM 10 MG TABLET PO SCH (22:18)
[2016-09-24] MEDS: GABAPENTIN 300 MG CAPSULE PO SCH (22:18)
[2016-09-24] MEDS: ATORVASTATIN CALCIUM 80 MG TABLET PO SCH (22:19)
[2016-09-24] MEDS: INSULIN LISPRO 100 UNIT/ML 3 ML VIAL SUBCUT PRN (22:24)
[2016-09-24] MEDS: INSULIN GLARGINE,HUM.REC.ANLOG 300 UNIT/3 ML INSULN.PEN SUBCUT SCH (22:25)
[2016-09-25] MEDS: IPRATROPIUM/ALBUTEROL 0.5-2.5 MG/3 ML AMPUL NEB SCH ×3 (00:25→16:31)
[2016-09-25] MEDS: LANSOPRAZOLE 30 MG TAB.RAP.DR PO SCH ×2 (06:14→10:02)
[2016-09-25] MEDS: HEPARIN SOD (PORCINE) 5,000 UNIT/ML 1 ML SYRINGE SUBCUT SCH ×3 (06:14→21:52)
[2016-09-25] MEDS: BUDESONIDE/FORMOTEROL 80-4.5 MCG 60 PUFF/6.9 GM MDI IH SCH (09:49)
[2016-09-25] MEDS: DOCUSATE SODIUM 100 MG CAPSULE PO SCH ×2 (09:49→18:25)
[2016-09-25] MEDS: LORATADINE 10 MG TABLET PO SCH (09:49)
[2016-09-25] MEDS: FLUTICASONE NASAL SPRAY 50 MCG/SPRY 120 SPRAY/16 GM NASL SCH ×2 (09:49→21:56)
[2016-09-25] MEDS: FOLIC ACID/VITAMIN B COMP W-C CAPSULE PO SCH ×2 (09:49→10:02)
[2016-09-25] MEDS: AZITHROMYCIN 250 MG TABLET PO SCH (09:50)
[2016-09-25] MEDS: ACETAMINOPHEN 325 MG TABLET PO PRN (09:50)
[2016-09-25] MEDS: OMEGA-3 ACID ETHYL ESTERS 1 GM CAPSULE PO SCH (09:50)
[2016-09-25] MEDS: GUAIFENESIN 600 MG TABLET.SA PO SCH ×2 (09:51→21:53)
[2016-09-25] MEDS: NICOTINE 21 MG/24 HR PATCH.TD24 TD SCH (09:51)
[2016-09-25] MEDS: CHOLECALCIFEROL (D3) 1,000 UNIT TABLET PO SCH ×2 (09:51→10:02)
[2016-09-25] MEDS: ASPIRIN 81 MG TABLET, ENT COATED PO SCH (09:51)
[2016-09-25] MEDS: SERTRALINE HCL 50 MG TABLET PO SCH (09:51)
[2016-09-25] MEDS: CEFEPIME HCL 2 GM in DEXTROSE 5%-WATER 50 ML IV SCH (09:52)
[2016-09-25] MEDS: INSULIN GLARGINE,HUM.REC.ANLOG 300 UNIT/3 ML INSULN.PEN SUBCUT SCH ×2 (09:52→21:53)
[2016-09-25] MEDS: MELOXICAM 7.5 MG TABLET PO SCH (09:53)
[2016-09-25] MEDS: PREDNISONE 20 MG TABLET PO SCH (09:57)
[2016-09-25] MEDS: POLYETHYLENE GLYCOL 3350 POWDER 17 GM/1 PACKET PO SCH (09:57)
[2016-09-25] MEDS ORDERED: BISACODYL 10 MG SUPP.RECT PR PRN (13:59)
[2016-09-25] MEDS ORDERED: BISACODYL 10 MG SUPP.RECT PR ONE (13:59)
--- NOTE | 2016-09-25 14:07 | PDOC PROGRESS REPORT ---
Subjective Progress Note for:: 09/25/16 Subjective:: Patient has still not had a bowel movement. He reports that his breathing is at least 50% improved from admission. He does report a new complaint of being unable to concentrate. Patient has not had a bowel movement in several days. Patient denies chest pain, abdominal pain, nausea, vomiting, fevers, chills, diarrhea, headache, new onset weakness. Physical Exam Vital Signs: Temp Pulse Resp BP Pulse Ox 97.3 F 78 18 123/67 96 09/25/16 11:43 09/25/16 11:43 09/25/16 11:43 09/25/16 11:43 09/25/16 11:43 Intake & Output 09/24/16 09/25/16 09/26/16 05:59 06:59 06:59 Intake Total Output Total Balance Weight Exam: General: Awake alert and oriented x3, no acute respiratory distress HEENT: AT/NC, PERRL, EOMI, oropharynx is moist, pink, no scleral icterus, no conjunctival injection Neck: No JVD, trachea midline Chest: Bilateral end expiratory wheezes, bilateral rhonchi CV: Regular rate and rhythm, normal S1 and S2, no murmur, rub, or gallop Abdomen: Soft, nontender to palpation, nondistended, hypoactive bowel sounds; no rebound, rigidity, or guarding; peritoneal dialysis catheter in place without surrounding erythema or exudate. Extremities: No cyanosis, or edema; + digital clubbing Neuro: Cranial nerves II through XII are grossly intact without focal deficits; awake alert and oriented x3 Psych: Normal mood and affect Results Laboratory Results: 09/23/16 06:22 09/23/16 06:22 09/22/16 00:18 Troponin I < 0.012 Impressions: Cervical Spine CT 09/21/16 18:24 IMPRESSION: Degenerative changes without evidence for fracture Chest CT 09/21/16 18:24 IMPRESSION: No significant intrathoracic posttraumatic changes are identified. Other findings as noted above Head CT 09/21/16 18:24 IMPRESSION: No significant intracranial abnormalities were identified. Soft tissue nodule in the subcutaneous fat on the right as noted above. Other findings as noted above Carotid Doppler Study 09/23/16 00:00 IMPRESSION: NO HEMODYNAMICALLY SIGNIFICANT STENOSIS. Lung Scan-VQ NM 09/24/16 00:00 IMPRESSION: NORMAL VENTILATION-PERFUSION LUNG SCAN. NEGATIVE FOR PULMONARY EMBOLI. Chest X-Ray 09/24/16 07:00 IMPRESSION: NO SIGNIFICANT RADIOGRAPHIC FINDING IN THE CHEST. Assessment & Plan - Diagnosis (1) COPD exacerbation Is this a current diagnosis for this admission?: YesPlan: Patient has a COPD exacerbation and likely cough related syncope. Continue scheduled nebulized treatments. Patient had a negative VQ scan. Despite the fact reports she's been going on for years, his chest x-rays grossly negative for underlying pneumonia. Continue pulmonary toileting. Unable to decrease steroids today secondary to his bronchospastic activity. (2) Opiate dependence, continuous Is this a current diagnosis for this admission?: YesPlan: Continue patient's home medications. Place patient on Miralax and Colace. Consider decreasing these due to patient's reported inability to concentrate. (3) Syncope Qualifiers: Syncope type: unspecified Qualified Code(s): R55 - Syncope and collapse Is this a current diagnosis for this admission?: YesPlan: Negative VQ scan. Patient has reported this has been going on for years. Likely represents vasovagal syncope. (4) End stage renal disease Is this a current diagnosis for this admission?: YesPlan: Defer to nephrology (5) Pneumonia Qualifiers: Pneumonia type: due to unspecified organism Laterality: unspecified laterality Lung location: unspecified part of lung Qualified Code(s) : J18.9 - Pneumonia, unspecified organism Is this a current diagnosis for this admission?: NoPlan: Patient does not have pneumonia per chest x-ray. (6) DM (diabetes mellitus), type 1 with renal complications Qualifiers: Diabetes mellitus complication detail: with chronic kidney disease Chronic kidney disease stage: on chronic dialysis Qualified Code(s): E10.22 - Type 1 diabetes mellitus with diabetic chronic kidney disease; N18.1 - Chronic kidney disease, stage 1 Is this a current diagnosis for this admission?: YesPlan: Patient currently requiring very little insulin. We did discuss that based on his diet, patient would be better to control his diabetes at home. Have place patient on Lantus 10 units subcutaneous twice a day. Patient's blood sugars now ranging between 105 and 251. (7) Tobacco dependency Is this a current diagnosis for this admission?: YesPlan: Patient reports that he is down from sixpacks to 2 packs. Have given nicotine patch. counseled for more than 3 minutes. (8) Obesity (BMI 30.0-34.9) Is this a current diagnosis for this admission?: Yes (9) Constipation due to opioid therapy Is this a current diagnosis for this admission?: YesPlan: Have place patient on cathartics. Given Dulcolax suppository today. If no results, will obtain KUB and give lactulose. - Time Time Spent with patient: 25-34 minutes Medications reviewed and adjusted accordingly: Yes
[2016-09-25] MEDS: INSULIN LISPRO 100 UNIT/ML 3 ML VIAL SUBCUT PRN (21:52)
[2016-09-25] MEDS: ATORVASTATIN CALCIUM 80 MG TABLET PO SCH (21:53)
[2016-09-25] MEDS: GABAPENTIN 300 MG CAPSULE PO SCH (21:53)
[2016-09-25] MEDS: MONTELUKAST SODIUM 10 MG TABLET PO SCH (21:53)
[2016-09-26] MEDS: IPRATROPIUM/ALBUTEROL 0.5-2.5 MG/3 ML AMPUL NEB SCH ×3 (00:04→18:21)
[2016-09-26] MEDS: LANSOPRAZOLE 30 MG TAB.RAP.DR PO SCH ×2 (05:25→16:58)
[2016-09-26] MEDS: HEPARIN SOD (PORCINE) 5,000 UNIT/ML 1 ML SYRINGE SUBCUT SCH ×3 (05:26→22:53)
[2016-09-26] MEDS: INSULIN LISPRO 100 UNIT/ML 3 ML VIAL SUBCUT PRN ×2 (05:39→22:52)
[2016-09-26 05:50] LABS: ABSOLUTE LYMPHOCYTES (AUTO) 1.9 10^3/uL (0.5-4.7); ABSOLUTE MONOCYTES (AUTO) 1.1 10^3/uL (0.1-1.4); ABSOLUTE NEUT (AUTO) 13.6 10^3/uL (1.7-8.2); BASOPHILS % (AUTO) 0.2 % (0-2); EOSINOPHILS % (AUTO) 0.1 % (0-6); HEMATOCRIT 35.7 % (37.9-51.0); HEMOGLOBIN 11.9 g/dL (13.5-17.0); LYMPHOCYTES % (AUTO) 11.2 % (13-45); MEAN CORPUSCULAR HEMOGLOBIN 31.5 pg (27.0-33.4); MEAN CORPUSCULAR HGB CONC 33.4 g/dL (32.0-36.0); MEAN CORPUSCULAR VOLUME 94 fl (80-97); MONOCYTES % (AUTO) 6.8 % (3-13); RED BLOOD COUNT 3.79 10^6/uL (4.35-5.55); RED CELL DISTRIBUTION WIDTH 14.7 % (11.5-14.0); SEGMENTED NEUTROPHILS % (AUTO) 81.7 % (42-78); WHITE BLOOD COUNT 16.7 10^3/uL (4.0-10.5)
[2016-09-26 06:07] LABS: BLOOD UREA NITROGEN 85 mg/dL (7-20); CARBON DIOXIDE 22 mmol/L (22-30); CHLORIDE 94 mmol/L (98-107); CREATININE RESULT 5.21 mg/dL (0.52-1.25); GLUCOSE 195 mg/dL (75-110); MAGNESIUM 2.4 mg/dL (1.6-2.3); SODIUM 137.3 mmol/L (137-145)
[2016-09-26 06:11] LABS: ANION GAP 21 (5-19)
[2016-09-26] MEDS: LORATADINE 10 MG TABLET PO SCH (11:01)
[2016-09-26] MEDS: FOLIC ACID/VITAMIN B COMP W-C CAPSULE PO SCH ×2 (11:02→16:58)
[2016-09-26] MEDS: DOCUSATE SODIUM 100 MG CAPSULE PO SCH ×2 (11:02→18:20)
[2016-09-26] MEDS: ASPIRIN 81 MG TABLET, ENT COATED PO SCH (11:02)
[2016-09-26] MEDS: CHOLECALCIFEROL (D3) 1,000 UNIT TABLET PO SCH ×2 (11:03→16:58)
[2016-09-26] MEDS: SERTRALINE HCL 50 MG TABLET PO SCH (11:03)
[2016-09-26] MEDS: AZITHROMYCIN 250 MG TABLET PO SCH (11:04)
[2016-09-26] MEDS: GUAIFENESIN 600 MG TABLET.SA PO SCH ×2 (11:04→22:51)
[2016-09-26] MEDS: OMEGA-3 ACID ETHYL ESTERS 1 GM CAPSULE PO SCH (11:05)
[2016-09-26] MEDS: FLUTICASONE NASAL SPRAY 50 MCG/SPRY 120 SPRAY/16 GM NASL SCH ×2 (11:07→22:52)
[2016-09-26] MEDS: NICOTINE 21 MG/24 HR PATCH.TD24 TD SCH (11:07)
[2016-09-26] MEDS: BUDESONIDE/FORMOTEROL 80-4.5 MCG 60 PUFF/6.9 GM MDI IH SCH (11:08)
[2016-09-26] MEDS: MELOXICAM 7.5 MG TABLET PO SCH (11:08)
[2016-09-26] MEDS: INSULIN GLARGINE,HUM.REC.ANLOG 300 UNIT/3 ML INSULN.PEN SUBCUT SCH ×2 (11:18→22:51)
[2016-09-26] MEDS: CEFEPIME HCL 2 GM in DEXTROSE 5%-WATER 50 ML IV SCH (11:18)
--- NOTE | 2016-09-26 13:11 | PDOC PROGRESS REPORT ---
Subjective Progress Note for:: 09/26/16 Subjective:: I'm seeing the patient and initiation of hemodialysis this noontime. He looks clinically better. He doesn't seem to be coughing as much and that is confirmed by him. There is no more syncopal episode observed. I have spoken to Dr. Nita Belcher this morning since patient is scheduled for removal of his PD catheter for tomorrow. Dr. Belcher is going to proceed with removal of PD catheter tomorrow since he is already scheduled while the patient is here. Physical Exam Vital Signs: Temp Pulse Resp BP Pulse Ox 97.7 F 72 16 136/78 H 98 09/26/16 07:20 09/26/16 08:55 09/26/16 08:55 09/26/16 07:20 09/26/16 08:55 Intake & Output 09/25/16 09/26/16 09/27/16 06:59 06:59 06:59 Intake Total 1880 Output Total Balance 1880 Weight Vital signs during initiation of dialysis: Blood pressure of 153/85, heart rate of 84, temperature of 97. Exam: General appearance: PRESENT: no acute distress, cooperative, well-developed, well-nourished Head exam: PRESENT: atraumatic, normocephalic Eye exam: PRESENT: conjunctiva pink, PERRLA. ABSENT: scleral icterus Neck exam: ABSENT: JVD Respiratory exam: PRESENT: Normal breath sounds. ABSENT: crackles, rales, rhonchi, unlabored, wheezes Cardiovascular exam: PRESENT: Regular rate rhythm -+S1, +S2. ABSENT: diastolic murmur, systolic murmur GI/Abdominal exam: PRESENT: normal bowel sounds, soft. ABSENT: guarding, mass, tenderness Extremities exam: ABSENT: No edema Neurological exam: PRESENT: alert, awake, oriented to person, place and time. Skin exam: PRESENT: dry, warm, Results Laboratory Results: 09/26/16 04:48 09/26/16 04:48 09/26/16 09/26/16 04:48 04:48 WBC 16.7 H RBC 3.79 L Hgb 11.9 L Hct 35.7 L MCV 94 MCH 31.5 MCHC 33.4 RDW 14.7 H Plt Count 311 Seg Neutrophils % 81.7 H Lymphocytes % 11.2 L Monocytes % 6.8 Eosinophils % 0.1 Basophils % 0.2 Absolute Neutrophils 13.6 H Absolute Lymphocytes 1.9 Absolute Monocytes 1.1 Absolute Eosinophils 0.0 Absolute Basophils 0.0 Sodium 137.3 Potassium 5.0 Chloride 94 L Carbon Dioxide 22 Anion Gap 21 H BUN 85 H Creatinine 5.21 H Est GFR ( Amer) 14 L Est GFR (Non-Af Amer) 11 L Glucose 195 H Calcium 8.0 L Magnesium 2.4 H 09/22/16 00:18 Troponin I < 0.012 Impressions: Cervical Spine CT 09/21/16 18:24 IMPRESSION: Degenerative changes without evidence for fracture Chest CT 09/21/16 18:24 IMPRESSION: No significant intrathoracic posttraumatic changes are identified. Other findings as noted above Head CT 09/21/16 18:24 IMPRESSION: No significant intracranial abnormalities were identified. Soft tissue nodule in the subcutaneous fat on the right as noted above. Other findings as noted above Carotid Doppler Study 09/23/16 00:00 IMPRESSION: NO HEMODYNAMICALLY SIGNIFICANT STENOSIS. Lung Scan-VQ NM 09/24/16 00:00 IMPRESSION: NORMAL VENTILATION-PERFUSION LUNG SCAN. NEGATIVE FOR PULMONARY EMBOLI. Chest X-Ray 09/24/16 07:00 IMPRESSION: NO SIGNIFICANT RADIOGRAPHIC FINDING IN THE CHEST. Assessment & Plan - Diagnosis (1) End stage renal disease Is this a current diagnosis for this admission?: YesPlan: We will do dialysis today for 3 hours, using the patient's AV fistula on the left upper arm, with 2 potassium bath, blood flow rate of 400 mL per minute, dialysate flow rate of 600 mL per minute, ultrafiltration 4-5 L, no heparin and no Procrit during dialysis. We will monitor the patient during dialysis treatment. His PD catheter will be removed by Dr. Belcher as scheduled tomorrow. (2) Syncope Qualifiers: Syncope type: unspecified Qualified Code(s): R55 - Syncope and collapse Is this a current diagnosis for this admission?: YesPlan: Likely due to vasovagal reaction to coughing. Currently improved. (3) Pneumonia Qualifiers: Pneumonia type: due to unspecified organism Laterality: unspecified laterality Lung location: unspecified part of lung Qualified Code(s) : J18.9 - Pneumonia, unspecified organism Is this a current diagnosis for this admission?: NoPlan: Improving clinically. Managed by primary service. - Time Time with patient: 15-25 minutes
[2016-09-26] MEDS: PREDNISONE 20 MG TABLET PO SCH (16:58)
[2016-09-26] MEDS ORDERED: MINERAL OIL ENEMA 133 ML PR PRN (18:06)
--- NOTE | 2016-09-26 18:10 | PDOC PROGRESS REPORT ---
Subjective Progress Note for:: 09/26/16 Subjective:: Patient continues to complain of constipation. Patient also continues to complain of decreased concentration but reports is slightly improved. Patient denies chest pain, abdominal pain, nausea, vomiting, fevers, chills, diarrhea, headache, new onset weakness. Physical Exam Vital Signs: Temp Pulse Resp BP Pulse Ox 97.6 F 94 19 121/74 100 09/26/16 04:17 09/26/16 07:00 09/26/16 04:17 09/26/16 04:17 09/26/16 04:17 Intake & Output 09/25/16 09/26/16 09/27/16 06:59 06:59 06:59 Intake Total 1880 Output Total Balance 1880 Weight Exam: General: Awake alert and oriented x3, no acute respiratory distress HEENT: AT/NC, PERRL, EOMI, oropharynx is moist, pink, no scleral icterus, no conjunctival injection Neck: No JVD, trachea midline Chest: Clear to auscultation bilaterally CV: Regular rate and rhythm, normal S1 and S2, no murmur, rub, or gallop Abdomen: Soft, nontender to palpation, mildly distended, hypoactive bowel sounds ; no rebound, rigidity, or guarding; peritoneal dialysis catheter in place without surrounding erythema or exudate. Extremities: No cyanosis, or edema; + digital clubbing Neuro: Cranial nerves II through XII are grossly intact without focal deficits; awake alert and oriented x3 Psych: Normal mood and affect Results Laboratory Results: 09/26/16 04:48 09/26/16 04:48 09/26/16 09/26/16 04:48 04:48 WBC 16.7 H RBC 3.79 L Hgb 11.9 L Hct 35.7 L MCV 94 MCH 31.5 MCHC 33.4 RDW 14.7 H Plt Count 311 Seg Neutrophils % 81.7 H Lymphocytes % 11.2 L Monocytes % 6.8 Eosinophils % 0.1 Basophils % 0.2 Absolute Neutrophils 13.6 H Absolute Lymphocytes 1.9 Absolute Monocytes 1.1 Absolute Eosinophils 0.0 Absolute Basophils 0.0 Sodium 137.3 Potassium 5.0 Chloride 94 L Carbon Dioxide 22 Anion Gap 21 H BUN 85 H Creatinine 5.21 H Est GFR ( Amer) 14 L Est GFR (Non-Af Amer) 11 L Glucose 195 H Calcium 8.0 L Magnesium 2.4 H 09/22/16 00:18 Troponin I < 0.012 Impressions: Cervical Spine CT 09/21/16 18:24 IMPRESSION: Degenerative changes without evidence for fracture Chest CT 09/21/16 18:24 IMPRESSION: No significant intrathoracic posttraumatic changes are identified. Other findings as noted above Head CT 09/21/16 18:24 IMPRESSION: No significant intracranial abnormalities were identified. Soft tissue nodule in the subcutaneous fat on the right as noted above. Other findings as noted above Carotid Doppler Study 09/23/16 00:00 IMPRESSION: NO HEMODYNAMICALLY SIGNIFICANT STENOSIS. Lung Scan-VQ NM 09/24/16 00:00 IMPRESSION: NORMAL VENTILATION-PERFUSION LUNG SCAN. NEGATIVE FOR PULMONARY EMBOLI. Chest X-Ray 09/24/16 07:00 IMPRESSION: NO SIGNIFICANT RADIOGRAPHIC FINDING IN THE CHEST. Assessment & Plan - Diagnosis (1) COPD exacerbation Is this a current diagnosis for this admission?: YesPlan: Patient has a COPD exacerbation and likely cough related syncope. Continue scheduled nebulized treatments. Patient had a negative VQ scan. Despite the fact reports she's been going on for years, his chest x-rays grossly negative for underlying pneumonia. Continue pulmonary toileting. Decrease steroids again today. (2) Opiate dependence, continuous Is this a current diagnosis for this admission?: YesPlan: Have decreased patient's oxycodone to 10 mg, with improved concentration. Place patient on Miralax and Colace. Consider decreasing these due to patient's reported inability to concentrate. (3) Syncope Qualifiers: Syncope type: unspecified Qualified Code(s): R55 - Syncope and collapse Is this a current diagnosis for this admission?: YesPlan: Negative VQ scan. Patient has reported this has been going on for years. Likely represents vasovagal syncope. (4) End stage renal disease Is this a current diagnosis for this admission?: YesPlan: Defer to nephrology. Patient is to have his peritoneal dialysis catheter removed tomorrow by Dr. Nita Belcher. Dialysis today. (5) Pneumonia Qualifiers: Pneumonia type: due to unspecified organism Laterality: unspecified laterality Lung location: unspecified part of lung Qualified Code(s) : J18.9 - Pneumonia, unspecified organism Is this a current diagnosis for this admission?: NoPlan: Patient does not have pneumonia per chest x-ray. (6) DM (diabetes mellitus), type 1 with renal complications Qualifiers: Diabetes mellitus complication detail: with chronic kidney disease Chronic kidney disease stage: on chronic dialysis Qualified Code(s): E10.22 - Type 1 diabetes mellitus with diabetic chronic kidney disease; N18.1 - Chronic kidney disease, stage 1 Is this a current diagnosis for this admission?: YesPlan: Patient currently requiring very little insulin. We did discuss that based on his diet, patient would be better to control his diabetes at home. Have place patient on Lantus 10 units subcutaneous twice a day. Patient's blood sugars now ranging between 105 and 313. (7) Tobacco dependency Is this a current diagnosis for this admission?: YesPlan: Patient reports that he is down from sixpacks to 2 packs. Have given nicotine patch. counseled for more than 3 minutes. (8) Obesity (BMI 30.0-34.9) Is this a current diagnosis for this admission?: Yes (9) Constipation due to opioid therapy Is this a current diagnosis for this admission?: YesPlan: Have place patient on cathartics. Given Dulcolax suppository today. Give patient mineral oil enema (10) Acute hypoxemic respiratory failure Is this a current diagnosis for this admission?: YesPlan: Secondary to underlying COPD and COPD exacerbation. Maintain saturation greater than 93%. This is likely acute on chronic. - Time Time Spent with patient: 25-34 minutes Medications reviewed and adjusted accordingly: Yes Anticipated discharge: Home Within: within 48 hours
[2016-09-26] MEDS: POLYETHYLENE GLYCOL 3350 POWDER 17 GM/1 PACKET PO SCH (18:20)
[2016-09-26] MEDS ORDERED: MINERAL OIL ENEMA 133 ML PR ONE (19:30)
[2016-09-26] MEDS: ATORVASTATIN CALCIUM 80 MG TABLET PO SCH (22:50)
[2016-09-26] MEDS: GABAPENTIN 300 MG CAPSULE PO SCH (22:51)
[2016-09-26] MEDS: MONTELUKAST SODIUM 10 MG TABLET PO SCH (22:51)
[2016-09-27] MEDS: IPRATROPIUM/ALBUTEROL 0.5-2.5 MG/3 ML AMPUL NEB SCH ×3 (00:09→16:52)
[2016-09-27] MEDS: HEPARIN SOD (PORCINE) 5,000 UNIT/ML 1 ML SYRINGE SUBCUT SCH ×3 (06:12→22:12)
[2016-09-27] MEDS: LANSOPRAZOLE 30 MG TAB.RAP.DR PO SCH ×2 (06:12→11:03)
[2016-09-27] MEDS ORDERED: LIDOCAINE 0.5% INJ-PF (5 MG/ML) 50 ML SDV ONE (07:30)
[2016-09-27] MEDS ORDERED: BUPIVACAINE HCL 0.25 % INJ/PF (2.5 MG/1 ML) 30 ML VIAL ONE (07:30)
[2016-09-27] MEDS ORDERED: FENTANYL CITRATE INJ/PF 100 MCG/2 ML AMPUL ONE (07:37)
[2016-09-27] MEDS ORDERED: DEXMEDETOMIDINE INJ 80 MCG/20 ML VIAL IV ONE (07:38)
[2016-09-27] MEDS ORDERED: MIDAZOLAM 2 MG/2 ML INJ ONE (07:38)
[2016-09-27] MEDS ORDERED: PROPOFOL INJ 200 MG/20 ML VIAL IV ONE (07:38)
[2016-09-27] MEDS ORDERED: MORPHINE SULFATE 10 MG/ML INJ IV PRN (08:28)
[2016-09-27] MEDS ORDERED: OXYCODONE-ACETAMINOPHEN 5-325 MG TABLET PO PRN ×2 (08:28)
[2016-09-27] MEDS ORDERED: DIPHENHYDRAMINE HCL 50 MG/ML VIAL IV PRN (08:28)
[2016-09-27] MEDS ORDERED: PROMETHAZINE HCL INJ 25 MG/1 ML VIAL IV PRN ×2 (08:28)
[2016-09-27] MEDS ORDERED: MEPERIDINE HCL/PF INJ 25 MG/1 ML DISP.SYRIN IV PRN (08:28)
[2016-09-27] MEDS ORDERED: FENTANYL CITRATE INJ/PF 100 MCG/2 ML AMPUL IV PRN ×3 (08:28)
[2016-09-27] MEDS: MELOXICAM 7.5 MG TABLET PO SCH (10:54)
[2016-09-27] MEDS: OMEGA-3 ACID ETHYL ESTERS 1 GM CAPSULE PO SCH (10:54)
[2016-09-27] MEDS: FOLIC ACID/VITAMIN B COMP W-C CAPSULE PO SCH ×2 (10:54→11:03)
[2016-09-27] MEDS: GUAIFENESIN 600 MG TABLET.SA PO SCH ×2 (10:54→22:12)
[2016-09-27] MEDS: INSULIN GLARGINE,HUM.REC.ANLOG 300 UNIT/3 ML INSULN.PEN SUBCUT SCH ×2 (10:54→22:13)
[2016-09-27] MEDS: ASPIRIN 81 MG TABLET, ENT COATED PO SCH (10:54)
[2016-09-27] MEDS: AZITHROMYCIN 250 MG TABLET PO SCH (10:54)
[2016-09-27] MEDS: LORATADINE 10 MG TABLET PO SCH (10:54)
[2016-09-27] MEDS: SERTRALINE HCL 50 MG TABLET PO SCH (10:54)
[2016-09-27] MEDS: CHOLECALCIFEROL (D3) 1,000 UNIT TABLET PO SCH ×2 (10:54→11:03)
[2016-09-27] MEDS: DOCUSATE SODIUM 100 MG CAPSULE PO SCH ×2 (10:54→17:00)
[2016-09-27] MEDS: POLYETHYLENE GLYCOL 3350 POWDER 17 GM/1 PACKET PO SCH (11:03)
[2016-09-27] MEDS: PREDNISONE 20 MG TABLET PO SCH (11:03)
[2016-09-27] MEDS: CEFEPIME HCL 2 GM in DEXTROSE 5%-WATER 50 ML IV SCH (11:33)
[2016-09-27] MEDS: FLUTICASONE NASAL SPRAY 50 MCG/SPRY 120 SPRAY/16 GM NASL SCH ×2 (11:39→22:11)
[2016-09-27] MEDS: BUDESONIDE/FORMOTEROL 80-4.5 MCG 60 PUFF/6.9 GM MDI IH SCH (11:39)
[2016-09-27] MEDS: NICOTINE 21 MG/24 HR PATCH.TD24 TD SCH (11:39)
[2016-09-27] MEDS ORDERED: NEOSTIGMINE METHYLSULFATE 10 MG/10 ML VIAL ONE (12:39)
[2016-09-27] MEDS: OXYCODONE HCL IR 5 MG TABLET PO PRN ×2 (14:33→19:44)
[2016-09-27] MEDS: INSULIN LISPRO 100 UNIT/ML 3 ML VIAL SUBCUT PRN ×2 (16:43→22:13)
[2016-09-27] MEDS ORDERED: NICOTINE 21 MG/24 HR PATCH.TD24 TD ONE (22:00)
[2016-09-27] MEDS: ATORVASTATIN CALCIUM 80 MG TABLET PO SCH (22:10)
[2016-09-27] MEDS: MONTELUKAST SODIUM 10 MG TABLET PO SCH (22:12)
[2016-09-27] MEDS: GABAPENTIN 300 MG CAPSULE PO SCH (22:12)
--- NOTE | 2016-09-27 23:44 | PDOC PROGRESS REPORT ---
Subjective Progress Note for:: 09/27/16 Subjective:: Patient just returned to his room from surgery when I saw him. He was sleeping deeply. Arousable, but quickly fell back asleep. According to nursing patient required abdominal binder for postoperative bleeding. Physical Exam Vital Signs: Temp Pulse Resp BP Pulse Ox 97.7 F 72 16 112/71 100 09/27/16 03:31 09/27/16 03:31 09/27/16 03:31 09/27/16 03:31 09/27/16 03:31 Intake & Output 09/26/16 09/27/16 09/28/16 06:59 06:59 06:59 Intake Total 1880 1655 Output Total 9800 Balance 1880 -8145 Weight 101.4 kg Exam: General: Lethargic, snoring, no acute respiratory distress HEENT: AT/NC, PERRL, EOMI, oropharynx is moist, pink, no scleral icterus, no conjunctival injection Neck: No JVD, trachea midline Chest: Clear to auscultation bilaterally CV: Regular rate and rhythm, normal S1 and S2, no murmur, rub, or gallop Abdomen: Soft, nontender to palpation, mildly distended, hypoactive bowel sounds ; abdominal binder in place Extremities: No cyanosis, or edema; + digital clubbing Neuro: Cranial nerves II through XII are grossly intact without focal deficits; awake alert and oriented x3 Psych: Normal mood and affect Results Laboratory Results: 09/26/16 04:48 09/26/16 04:48 09/22/16 00:18 Troponin I < 0.012 Impressions: Cervical Spine CT 09/21/16 18:24 IMPRESSION: Degenerative changes without evidence for fracture Chest CT 09/21/16 18:24 IMPRESSION: No significant intrathoracic posttraumatic changes are identified. Other findings as noted above Head CT 09/21/16 18:24 IMPRESSION: No significant intracranial abnormalities were identified. Soft tissue nodule in the subcutaneous fat on the right as noted above. Other findings as noted above Carotid Doppler Study 09/23/16 00:00 IMPRESSION: NO HEMODYNAMICALLY SIGNIFICANT STENOSIS. Lung Scan-VQ NM 09/24/16 00:00 IMPRESSION: NORMAL VENTILATION-PERFUSION LUNG SCAN. NEGATIVE FOR PULMONARY EMBOLI. Chest X-Ray 09/24/16 07:00 IMPRESSION: NO SIGNIFICANT RADIOGRAPHIC FINDING IN THE CHEST. Assessment & Plan - Diagnosis (1) COPD exacerbation Is this a current diagnosis for this admission?: YesPlan: Patient has a COPD exacerbation and likely cough related syncope. Continue scheduled nebulized treatments. Patient had a negative VQ scan. chest x-rays grossly negative for underlying pneumonia. Continue pulmonary toileting. (2) Opiate dependence, continuous Is this a current diagnosis for this admission?: YesPlan: Have decreased patient's oxycodone to 10 mg, with improved concentration. Place patient on Miralax and Colace. Consider decreasing these due to patient's reported inability to concentrate. (3) Syncope Qualifiers: Syncope type: unspecified Qualified Code(s): R55 - Syncope and collapse Is this a current diagnosis for this admission?: Yes (4) End stage renal disease Is this a current diagnosis for this admission?: YesPlan: Defer to nephrology. Patient had his peritoneal dialysis catheter removed by Dr. Nita Belcher. Dialysis today. (5) Pneumonia Qualifiers: Pneumonia type: due to unspecified organism Laterality: unspecified laterality Lung location: unspecified part of lung Qualified Code(s) : J18.9 - Pneumonia, unspecified organism Is this a current diagnosis for this admission?: No (6) DM (diabetes mellitus), type 1 with renal complications Qualifiers: Diabetes mellitus complication detail: with chronic kidney disease Chronic kidney disease stage: on chronic dialysis Qualified Code(s): E10.22 - Type 1 diabetes mellitus with diabetic chronic kidney disease; N18.1 - Chronic kidney disease, stage 1 Is this a current diagnosis for this admission?: Yes (7) Tobacco dependency Is this a current diagnosis for this admission?: Yes (8) Obesity (BMI 30.0-34.9) Is this a current diagnosis for this admission?: Yes (9) Constipation due to opioid therapy Is this a current diagnosis for this admission?: Yes (10) Acute hypoxemic respiratory failure Is this a current diagnosis for this admission?: Yes - Time Time Spent with patient: 25-34 minutes Anticipated discharge: Home Within: within 24 hours
[2016-09-28] MEDS: IPRATROPIUM/ALBUTEROL 0.5-2.5 MG/3 ML AMPUL NEB SCH ×3 (00:26→16:40)
[2016-09-28] MEDS: LANSOPRAZOLE 30 MG TAB.RAP.DR PO SCH ×2 (05:47→12:51)
[2016-09-28] MEDS: OXYCODONE HCL IR 5 MG TABLET PO PRN (05:47)
[2016-09-28] MEDS: HEPARIN SOD (PORCINE) 5,000 UNIT/ML 1 ML SYRINGE SUBCUT SCH ×2 (05:48→13:28)
[2016-09-28 06:03] LABS: ABSOLUTE BASOPHILS # (AUTO) 0.1 10^3/uL (0.0-0.2); ABSOLUTE EOSINOPHILS # (AUTO) 0.2 10^3/uL (0.0-0.6); ABSOLUTE LYMPHOCYTES (AUTO) 3.1 10^3/uL (0.5-4.7); ABSOLUTE MONOCYTES (AUTO) 1.2 10^3/uL (0.1-1.4); ABSOLUTE NEUT (AUTO) 9.6 10^3/uL (1.7-8.2); BASOPHILS % (AUTO) 0.6 % (0-2); EOSINOPHILS % (AUTO) 1.7 % (0-6); HEMATOCRIT 34.5 % (37.9-51.0); HEMOGLOBIN 11.2 g/dL (13.5-17.0); HGB HCT DIFFERENCE -0.9; LYMPHOCYTES % (AUTO) 21.9 % (13-45); MEAN CORPUSCULAR HGB CONC 32.6 g/dL (32.0-36.0); MEAN CORPUSCULAR VOLUME 95 fl (80-97); MONOCYTES % (AUTO) 8.2 % (3-13); RED BLOOD COUNT 3.62 10^6/uL (4.35-5.55); RED CELL DISTRIBUTION WIDTH 15.2 % (11.5-14.0); SEGMENTED NEUTROPHILS % (AUTO) 67.6 % (42-78); WHITE BLOOD COUNT 14.2 10^3/uL (4.0-10.5)
[2016-09-28 06:34] LABS: ANION GAP 16 (5-19); BLOOD UREA NITROGEN 73 mg/dL (7-20); CALCIUM 7.9 mg/dL (8.4-10.2); CARBON DIOXIDE 25 mmol/L (22-30); CHLORIDE 98 mmol/L (98-107); CREATININE RESULT 5.24 mg/dL (0.52-1.25); GLUCOSE 162 mg/dL (75-110); POTASSIUM 5.6 mmol/L (3.6-5.0); SODIUM 138.5 mmol/L (137-145)
[2016-09-28] MEDS: INSULIN LISPRO 100 UNIT/ML 3 ML VIAL SUBCUT PRN ×2 (07:34→16:44)
[2016-09-28] MEDS: CHOLECALCIFEROL (D3) 1,000 UNIT TABLET PO SCH ×2 (09:10→12:51)
[2016-09-28] MEDS: FOLIC ACID/VITAMIN B COMP W-C CAPSULE PO SCH ×2 (09:11→12:51)
[2016-09-28] MEDS: NICOTINE 21 MG/24 HR PATCH.TD24 TD SCH (09:11)
[2016-09-28] MEDS: SERTRALINE HCL 50 MG TABLET PO SCH (09:11)
[2016-09-28] MEDS: AZITHROMYCIN 250 MG TABLET PO SCH (09:12)
[2016-09-28] MEDS: ASPIRIN 81 MG TABLET, ENT COATED PO SCH (09:12)
[2016-09-28] MEDS: DOCUSATE SODIUM 100 MG CAPSULE PO SCH ×2 (09:12→17:36)
[2016-09-28] MEDS: LORATADINE 10 MG TABLET PO SCH (09:12)
[2016-09-28] MEDS: OMEGA-3 ACID ETHYL ESTERS 1 GM CAPSULE PO SCH (09:12)
[2016-09-28] MEDS: GUAIFENESIN 600 MG TABLET.SA PO SCH (09:12)
[2016-09-28] MEDS: MELOXICAM 7.5 MG TABLET PO SCH (09:13)
[2016-09-28] MEDS: BUDESONIDE/FORMOTEROL 80-4.5 MCG 60 PUFF/6.9 GM MDI IH SCH (09:13)
[2016-09-28] MEDS: FLUTICASONE NASAL SPRAY 50 MCG/SPRY 120 SPRAY/16 GM NASL SCH (09:14)
[2016-09-28] MEDS: INSULIN GLARGINE,HUM.REC.ANLOG 300 UNIT/3 ML INSULN.PEN SUBCUT SCH (09:14)
[2016-09-28] MEDS: CEFEPIME HCL 2 GM in DEXTROSE 5%-WATER 50 ML IV SCH (09:27)
[2016-09-28] MEDS: PREDNISONE 20 MG TABLET PO SCH (12:51)
[2016-09-28] MEDS: POLYETHYLENE GLYCOL 3350 POWDER 17 GM/1 PACKET PO SCH (12:51)
--- NOTE | 2016-09-28 14:51 | PDOC PROGRESS REPORT ---
Subjective Progress Note for:: 09/28/16 Subjective:: I saw patient on dialysis this afternoon. Patient is tolerating dialysis without any problems. He tells me he is ready to go home. He feels much better and has not been coughing so much. His peritoneal dialysis catheter has been removed yesterday without any complications. Physical Exam Vital Signs: Temp Pulse Resp BP Pulse Ox 97.7 F 93 18 107/53 L 97 09/28/16 11:06 09/28/16 11:06 09/28/16 09:02 09/28/16 11:06 09/28/16 11:06 Intake & Output 09/27/16 09/28/16 09/29/16 06:59 06:59 06:59 Intake Total 1655 1994 473 Output Total 9800 30 Balance -8145 1964 473 Weight 101.4 kg 102.3 kg Vitals during dialysis: Blood pressure 100/56, heart rate of 78, blood flow rate of 450 mL per minute, dialysate flow rate of 600 mL per minute. Exam: General appearance: [PRESENT: no acute distress, cooperative, well-developed, well-nourished] Head exam: [PRESENT: atraumatic, normocephalic] Eye exam: [PRESENT: conjunctiva pink, PERRLA. ABSENT: scleral icterus] Neck exam: [ABSENT: JVD] Respiratory exam: [PRESENT: Diminished breath sounds. ABSENT: crackles, rales, rhonchi, unlabored, wheezes] Cardiovascular exam: [PRESENT: Regular rate rhythm -+S1, +S2. ABSENT: diastolic murmur, systolic murmur] GI/Abdominal exam: [PRESENT: normal bowel sounds, soft. Previous PD catheter insertion site seems to be healing well without any drainage or bleeding. ABSENT: guarding, mass, tenderness] Extremities exam: [ABSENT: No edema] Neurological exam: [PRESENT: alert, awake, oriented to person, place and time.] Skin exam: [PRESENT: dry, warm,] Results Laboratory Results: 09/28/16 05:43 09/28/16 05:43 09/28/16 09/28/16 05:43 05:43 WBC 14.2 H RBC 3.62 L Hgb 11.2 L Hct 34.5 L MCV 95 MCH 31.0 MCHC 32.6 RDW 15.2 H Plt Count 323 Seg Neutrophils % 67.6 Lymphocytes % 21.9 Monocytes % 8.2 Eosinophils % 1.7 Basophils % 0.6 Absolute Neutrophils 9.6 H Absolute Lymphocytes 3.1 Absolute Monocytes 1.2 Absolute Eosinophils 0.2 Absolute Basophils 0.1 Sodium 138.5 Potassium 5.6 H Chloride 98 Carbon Dioxide 25 Anion Gap 16 BUN 73 H Creatinine 5.24 H Est GFR ( Amer) 14 L Est GFR (Non-Af Amer) 11 L Glucose 162 H Calcium 7.9 L 09/22/16 00:18 Troponin I < 0.012 Impressions: Cervical Spine CT 09/21/16 18:24 IMPRESSION: Degenerative changes without evidence for fracture Chest CT 09/21/16 18:24 IMPRESSION: No significant intrathoracic posttraumatic changes are identified. Other findings as noted above Head CT 09/21/16 18:24 IMPRESSION: No significant intracranial abnormalities were identified. Soft tissue nodule in the subcutaneous fat on the right as noted above. Other findings as noted above Carotid Doppler Study 09/23/16 00:00 IMPRESSION: NO HEMODYNAMICALLY SIGNIFICANT STENOSIS. Lung Scan-VQ NM 09/24/16 00:00 IMPRESSION: NORMAL VENTILATION-PERFUSION LUNG SCAN. NEGATIVE FOR PULMONARY EMBOLI. Chest X-Ray 09/24/16 07:00 IMPRESSION: NO SIGNIFICANT RADIOGRAPHIC FINDING IN THE CHEST. Assessment & Plan - Diagnosis (1) End stage renal disease Is this a current diagnosis for this admission?: YesPlan: We will do dialysis today for 3 hours, using the patient's AV fistula, with 2 potassium bath, blood flow rate of 450 mL per minute, dialysate flow rate of 600 mL per minute, ultrafiltration 3 L, no heparin and no Procrit during dialysis patients tolerating dialysis and we will continue to monitor until then of treatment. From nephrology standpoint I think patient can be discharged home after dialysis today. Patient has to resume his normal outpatient hemodialysis treatment schedule at [facility] on Mondays, Wednesdays and Fridays so next treatment will be on Monday on his regular scheduled time. (2) Syncope Qualifiers: Syncope type: unspecified Qualified Code(s): R55 - Syncope and collapse Is this a current diagnosis for this admission?: Yes (3) Pneumonia Qualifiers: Pneumonia type: due to unspecified organism Laterality: unspecified laterality Lung location: unspecified part of lung Qualified Code(s) : J18.9 - Pneumonia, unspecified organism Is this a current diagnosis for this admission?: NoPlan: Improving clinically. Managed by primary service. (4) COPD exacerbation Is this a current diagnosis for this admission?: Yes - Time Time with patient: 15-25 minutes
[2016-09-28 17:45] VITALS: BP 111/74
--- NOTE | 2016-09-29 18:04 | PDOC DISCHARGE SUMMARY ---
General - Admit/Disc Date/PCP Admission Date/Primary Care Provider: 09/21/16 22:48 CHANI LAWS MD Discharge Date: 09/28/16 - Discharge Diagnosis (1) COPD exacerbation Is this a current diagnosis for this admission?: Yes (2) Opiate dependence, continuous Is this a current diagnosis for this admission?: Yes (3) Syncope Is this a current diagnosis for this admission?: Yes (4) End stage renal disease Is this a current diagnosis for this admission?: Yes (5) Pneumonia Is this a current diagnosis for this admission?: No (6) DM (diabetes mellitus), type 1 with renal complications Is this a current diagnosis for this admission?: Yes (7) Tobacco dependency Is this a current diagnosis for this admission?: Yes (8) Obesity (BMI 30.0-34.9) Is this a current diagnosis for this admission?: Yes (9) Constipation due to opioid therapy Is this a current diagnosis for this admission?: Yes (10) Acute hypoxemic respiratory failure Is this a current diagnosis for this admission?: Yes - Additional Information Resuscitation Status: Full Code Discharge Diet: Cardiac, Diabetic Discharge Activity: Activity As Tolerated Home Medications: Aspirin [Adult Low Dose Aspirin EC] 81 mg PO DAILY 09/22/16 Atorvastatin Calcium [Lipitor 80 mg Tablet] 80 mg PO DAILY 09/22/16 Budesonide/Formoterol Fumarate [Symbicort HFA 160-4.5 mcg Inhaler 6 gm] 1 puff IH Q12 09/22/16 Cholecalciferol (Vitamin D3) [Vitamin D3 2000 unit Tablet] 2,000 unit PO DAILY 09/22/16 Folic Acid/Vitamin B Comp W-C [Joie-Raissa Tablet] 0.8 mg PO DAILY 09/22/16 Insulin Degludec [Tresiba Flextouch U-200] 72 unit SQ DAILY 09/22/16 Loratadine [Claritin 10 mg Tablet] 10 mg PO DAILY 09/22/16 Meloxicam [Mobic 7.5 mg Tablet] 7.5 mg PO DAILY 09/22/16 [place]-3 Acid Ethyl Esters [Lovaza 1 gm Capsule] 2 gm PO BID 09/22/16 Omeprazole 40 mg PO DAILY 09/22/16 Sertraline HCl [Zoloft 50 mg Tablet] 150 mg PO DAILY 09/22/16 Albuterol Sulfate [Proair HFA Inhalation Aerosol 8.5 gm MDI] 2 puff IH Q4HP PRN #1 hfa.aer.ad 09/26/16 Albuterol Sulfate [Ventolin 0.083% Neb 2.5 mg/3 mL Ampul] 2.5 mg NEB RTQ4HP PRN #1 pkg 09/26/16 Oxycodone HCl [Oxy-Ir 5 mg Tablet] 10 mg PO Q6HP PRN tablet 09/26/16 Amox Tr/Potassium Clavulanate [Augmentin "500" Tablet] 1 each PO BID #10 tablet 09/28/16 Azithromycin 500 mg PO DAILY #5 tablet 09/28/16 Docusate Sodium [Colace 100 mg Capsule] 100 mg PO BID #60 capsule 09/28/16 Fluticasone Propionate [Flonase Nasal [place] 50 Mcg/[place] 16 gm] 1 spray NASL Q12 #1 spray.pump 09/28/16 Gabapentin [Neurontin 300 mg Capsule] 300 mg PO QHS #30 cap 09/28/16 Ipratropium/Albuterol Sulfate [Duoneb 3 ml Ampul] 3 ml NEB RTQ8 #1 packet Montelukast Sodium [Singulair 10 mg Tablet] 10 mg PO QHS #30 tablet 09/28/16 Nebulizer [Nebulizer Machine] 1 each MC ASDIR PRN #1 kit 09/28/16 Nicotine [Nicoderm 21 mg/24 Hr Transderm Patch] 1 each TD DAILY #14 patch.td24 09/28/16 Polyethylene Glycol 3350 [Miralax Powder 17 gm/Packet] 17 gm PO DAILY@1200 #30 powd.pack 09/28/16 Prednisone [Deltasone 20 mg Tablet] 40 mg PO DAILY@1200 #10 tablet 09/28/16 History of Present Illness History of Present Illness: GET BURGESS is a 61 year old male, with end-stage renal disease, on Monday hemodialysis, status post dialysis session earlier today , along with insulin-dependent diabetes mellitus, mild depression without suicidal or homicidal ideation, hyperlipidemia, chronic back pain, mild bruising , esophageal reflux disease, one and a half pack-a-day smoker, with probable underlying COPD who presents to the emergency room for evaluation of above complaint. Patient has been discussed with emergency room physician who evaluated the patient. Was dialyzed earlier today, with a bit more fluid taken off than usual. Went to [facility] directly after dialysis. Suffered a post tussive syncopal episode, which, per patient, has been a chronic issue for several months. Fell and struck his head and perhaps his chest wall. Complaining now of bilateral chest wall pain, increasing shortness of breath along with occipital headache. No Chest pain prior to the episode. No nausea vomiting, fever or chills. Was started on antibiotic, unknown specific drug, yesterday for "infection." Patient uncertain as to exactly what infection. A bit of a poor historian at times. No other antibiotic last 3 months. No hospitalization last 3 months. Patient had a severe episode of coughing yesterday and states when he finished coughing, it felt as though he were in the "twilight zone." No biting of the tongue. No fecal or urinary incontinence. Does have a history of seizures apparently when his renal failure was initially discovered 5 years ago, but has never been on antiepileptics. No subsequent seizures. Prior stroke with mild left hemiparesis. No history of pulmonary embolus or DVT. Suffered an ND 30 years ago. 2 stents implanted 5 years ago in [place]. Currently resting quietly, complaining primarily of the bilateral chest wall pain whenever he takes a deep breath. States he's had a "knot" anterior to his right ear for several years. States it will increase in size and then decrease. Quite painful at times when he eats. Hospital Course Hospital Course: Patient was admitted with presumptive diagnosis of pneumonia. Repeat chest x- ray did not reveal any infiltrate. CT of the chest done on admission revealed some scarring but no infiltrates. Patient had been having a cough and episodes of posttussive syncope. Patient reports that he is on disability actually for his syncope and had this has been going on for years. Despite this, patient did receive a Doppler study which revealed no hemodynamically significant stenosis. A VQ scan which was low probability for pulmonary embolus. A CT of the head and cervical spine which revealed degenerative changes of the neck without fracture or dislocation and facial lipoma. Patient was maintained on dialysis by Dr. Gallardo on the Monday schedule. Patient progressed and was stable for discharge when it was revealed that patient was slated to have his peritoneal dialysis catheter removed. Patient went and had his perineal dialysis catheter removed on 09/27/2016 and was kept overnight for dialysis in the morning and due to postoperative bleeding. Patient's CBC revealed no appreciable decline in his hemoglobin and patient tolerated dialysis well. He did have a small dehiscence of the PD removal site and the surgeon was contacted prior to discharge. Please see his notes for this. Patient was ambulated and did not drop oxygen saturation less than 98% patient was 95% at rest while on dialysis. Patient did not qualify for home oxygen. Physical Exam Vital Signs: Temp Pulse Resp BP Pulse Ox 97.7 F 80 18 111/74 98 09/28/16 17:40 09/28/16 17:40 09/28/16 17:40 09/28/16 17:40 09/28/16 17:40 Intake & Output 09/28/16 09/29/16 09/30/16 06:59 06:59 06:59 Intake Total 1994 773 Output Total 30 Balance 1964 773 Weight 102.3 kg Exam: General: Awake, alert, oriented 3, no acute respiratory distress HEENT: AT/NC, PERRL, EOMI, oropharynx is moist, pink, no scleral icterus, no conjunctival injection Neck: No JVD, trachea midline Chest: Clear to auscultation bilaterally CV: Regular rate and rhythm, normal S1 and S2, no murmur, rub, or gallop Abdomen: Soft, nontender to palpation, nondistended, hypoactive bowel sounds; abdominal binder in place Extremities: No cyanosis, or edema; + digital clubbing Neuro: Cranial nerves II through XII are grossly intact without focal deficits; awake alert and oriented x3 Psych: Normal mood and affect Skin: 1 cm area of dehiscence in the left lower quadrant with 2 ends of silk suture present. No active bleeding Results Laboratory Results: 09/28/16 05:43 09/28/16 05:43 09/22/16 00:18 Troponin I < 0.012 Impressions: Cervical Spine CT 09/21/16 18:24 IMPRESSION: Degenerative changes without evidence for fracture Chest CT 09/21/16 18:24 IMPRESSION: No significant intrathoracic posttraumatic changes are identified. Other findings as noted above Head CT 09/21/16 18:24 IMPRESSION: No significant intracranial abnormalities were identified. Soft tissue nodule in the subcutaneous fat on the right as noted above. Other findings as noted above Carotid Doppler Study 09/23/16 00:00 IMPRESSION: NO HEMODYNAMICALLY SIGNIFICANT STENOSIS. Lung Scan-VQ NM 09/24/16 00:00 IMPRESSION: NORMAL VENTILATION-PERFUSION LUNG SCAN. NEGATIVE FOR PULMONARY EMBOLI. Chest X-Ray 09/24/16 07:00 IMPRESSION: NO SIGNIFICANT RADIOGRAPHIC FINDING IN THE CHEST. Qualifiers PATEINT BEING DISCHARGED WITH ANY OF THE FOLLOWING DIAGNOSIS?: No Plan Time Spent: Less than 30 Minutes
== END 2016-09-28 18:26 | disposition home or self-care (01) | DRG 190 ==
LOC: ER 17:21 → EH 21:39 → UNDOADMIN 21:39 → EH 22:48 → 3S 09-22 02:11
PROVIDERS: ADMIT Family Medicine; ATTEND Family Medicine
PROC: 5A1D00Z (ICD-10-PCS; 2016-09-23)
PROC: 5A1D00Z (ICD-10-PCS; 2016-09-26)
PROC: 5A1D00Z (ICD-10-PCS; principal; 2016-09-28)
DX: J44.1 Chronic obstructive pulmonary disease with (acute) exacerbation (principal); J18.9 Pneumonia, unspecified organism; N18.6 End stage renal disease; J96.01 Acute respiratory failure with hypoxia; F11.20 Opioid dependence, uncomplicated; I12.0 Hypertensive chronic kidney disease with stage 5 chronic kidney disease or end stage renal disease; I69.354 Hemiplegia and hemiparesis following cerebral infarction affecting left non-dominant side; E10.22 Type 1 diabetes mellitus with diabetic chronic kidney disease; F17.210 Nicotine dependence, cigarettes, uncomplicated; E66.9 Obesity, unspecified; Z68.30 Body mass index [BMI] 30.0-30.9, adult; K59.03 Drug induced constipation; T40.2X5A Adverse effect of other opioids, initial encounter; Z99.2 Dependence on renal dialysis; F32.9 Major depressive disorder, single episode, unspecified; E78.5 Hyperlipidemia, unspecified; M54.9 Dorsalgia, unspecified; K21.9 Gastro-esophageal reflux disease without esophagitis; I25.10 Atherosclerotic heart disease of native coronary artery without angina pectoris; M19.90 Unspecified osteoarthritis, unspecified site; R07.89 Other chest pain; S00.01XA Abrasion of scalp, initial encounter; W19.XXXA Unspecified fall, initial encounter; Y93.89 Activity, other specified; Y92.512 Supermarket, store or market as the place of occurrence of the external cause; Y99.8 Other external cause status; R22.0 Localized swelling, mass and lump, head; K40.90 Unilateral inguinal hernia, without obstruction or gangrene, not specified as recurrent; Z79.4 Long term (current) use of insulin; Z79.82 Long term (current) use of aspirin; Z79.899 Other long term (current) drug therapy; I25.2 Old myocardial infarction; Z95.5 Presence of coronary angioplasty implant and graft
CPT/HCPCS: 01844; 36415; 70450; 71020; 71250; 72125; 78582; 80048; 80053; 81001; 82550; 82553; 82962; 83735; 84484; 85025; 87040; 87086; 87804; 90686; 93005; 93010; 93880; 94640; 94667; 94668; 94799; 96361; 96365; 96375; 99291; A9540; A9567; J0456; J0692; J1644; J1815; J1956; J2250; J2704; J3010; J3370; J3490; J7060; J7512; J7620; Q9969

== ENCOUNTER 2017-01-30 12:18 | Emergency (ER) | payer OTHER, MEDICAID ==
[2017-01-30] MEDS ORDERED: ALBUTEROL SULFATE 0.083% NEB 2.5 MG/3 ML AMPUL NEB ONE (13:03)
--- NOTE | 2017-01-30 13:07 | ER Document Report ---
ED General - General Chief Complaint: General Weakness Stated Complaint: WEAKNESS Time Seen by Provider: 01/30/17 12:24 Mode of Arrival: Medic Information source: Patient TRAVEL OUTSIDE OF THE [place] IN LAST 30 DAYS: No - HPI Patient complains to provider of: generalized weakness, chest pain, dizziness Onset: Just prior to arrival Onset/Duration: Sudden Quality of pain: Achy Severity: Mild Pain Level: 1 Associated symptoms: Body/muscle aches, Chest pain, Productive cough, Shortness of breath, Weakness Exacerbated by: Denies Relieved by: Denies Similar symptoms previously: Yes Recently seen / treated by doctor: Yes Notes: Patient is a 61-year-old male with history of hypertension, diabetes, end-stage renal disease, who received his full dialysis treatment this morning, shortly thereafter developed dizziness, chest pains, he does report missing one dialysis treatment last week because he overslept, patient was outside smoking after his dialysis treatment when his symptoms began, he does report a productive cough over the last few days, with difficulty breathing, denies injury, no fever, reports that symptoms are resolved at time of my initial evaluation - Related Data Allergies/Adverse Reactions: No Known Allergies Allergy (Verified 09/21/16 17:55) Past Medical History - General Information source: Patient - Social History Smoking Status: Current Every Day Smoker Frequency of alcohol use: None Drug Abuse: None Family History: Reviewed & Not Pertinent - Past Medical History Cardiac Medical History: Reports: Hx Coronary Artery Disease - CHOLESTEROL, Hx Heart Attack, Hx Hypercholesterolemia, Hx Hypertension Denies: Hx DVT, Hx Pulmonary Embolism Pulmonary Medical History: Reports: Hx Asthma, Hx COPD, Hx Pneumonia Denies: Hx Bronchitis Neurological Medical History: Reports: Hx Cerebrovascular Accident, Hx Seizures - History of seizure when renal failure discovered; never on antiepileptic Endocrine Medical History: Reports: Hx Diabetes Mellitus Type 1. Denies: Hx Diabetes Mellitus Type 2, Hx Hyperthyroidism, Hx Hypothyroidism Renal/ Medical History: Reports: Hx End Stage Renal Disease, Hx Hemodialysis. Denies: Hx Peritoneal Dialysis GI Medical History: Reports: Hx Gastroesophageal Reflux Disease. Denies: Hx Cirrhosis, Hx Hepatitis Musculoskeltal Medical History: Reports Hx Arthritis Psychiatric Medical History: Reports: Hx Depression Infectious Medical History: Denies: Hx Hepatitis Past Surgical History: Reports: Hx Orthopedic Surgery, Hx Vascular Surgery - fistula left arm, Other - Peritoneal dialysis catheter placement - Immunizations Immunizations up to date: Yes Hx Diphtheria, Pertussis, Tetanus Vaccination: - UNSURE Review of Systems - Review of Systems Constitutional: Weakness EENT: No symptoms reported Cardiovascular: Chest pain Respiratory: See HPI Gastrointestinal: No symptoms reported Genitourinary: No symptoms reported Male Genitourinary: No symptoms reported Musculoskeletal: No symptoms reported Skin: No symptoms reported Hematologic/Lymphatic: No symptoms reported Neurological/Psychological: No symptoms reported -: Yes All other systems reviewed and negative Physical Exam - Vital signs Vitals: Temp Pulse BP Pulse Ox 97.5 F 82 94/62 L 95 01/30/17 12:41 01/30/17 12:41 01/30/17 12:41 01/30/17 12:41 Interpretation: Hypotensive - General General appearance: Appears well, Alert - HEENT Head: Normocephalic, Atraumatic Eyes: Normal Pupils: PERRL - Respiratory Respiratory status: No respiratory distress Chest status: Nontender Breath sounds: Wheezing Chest palpation: Normal - Cardiovascular Rhythm: Regular Heart sounds: Normal auscultation Murmur: No - Abdominal Inspection: Normal Distension: No distension Bowel sounds: Normal Tenderness: Nontender Organomegaly: No organomegaly - Back Back: Normal, Nontender - Extremities General upper extremity: Normal inspection, Nontender, Normal color, Normal ROM , Normal temperature General lower extremity: Normal inspection, Nontender, Normal color, Normal ROM , Normal temperature, Normal weight bearing. No: Mare's sign - Neurological Neuro grossly intact: Yes Cognition: Normal Orientation: AAOx4 [place] Coma Scale Eye Opening: Spontaneous [place] Coma Scale Verbal: Oriented [place] Coma Scale Motor: Obeys Commands [place] Coma Scale Total: 15 Speech: Normal Motor strength normal: LUE, RUE, LLE, RLE Sensory: Normal - Psychological Associated symptoms: Normal affect, Normal mood - Skin Skin Temperature: Warm Skin Moisture: Dry Skin Color: Normal Course - Re-evaluation Re-evalutation: 01/30/17 15:07 Patient resting comfortably, reports feeling much better after breathing treatment, lungs are clear to auscultation, lab and imaging findings were discussed with patient at bedside which are relatively unremarkable, patient will be discharged home with instructions for follow-up and advised to return if any additional concerns, patient acknowledges understanding and agreement with this plan - Vital Signs Vital signs: Temp Pulse Resp BP Pulse Ox 97.5 F 82 94/62 L 95 01/30/17 12:41 01/30/17 12:41 01/30/17 12:41 01/30/17 12:41 - Laboratory Result Diagrams: 01/30/17 13:24 01/30/17 13:24 Laboratory results interpreted by me: 01/30/17 01/30/17 13:24 13:24 WBC 12.5 H RBC 4.26 L Hgb 13.0 L RDW 14.1 H Seg Neutrophils % 79.5 H Lymphocytes % 11.6 L Absolute Neutrophils 10.0 H Creatinine 3.19 H Est GFR ( Amer) 24 L Est GFR (Non-Af Amer) 20 L Calcium 7.8 L - Diagnostic Test Radiology reviewed: Image reviewed, Reports reviewed - EKG Interpretation by Me EKG shows normal: Sinus rhythm Rate: Normal Rhythm: NSR Discharge - Discharge Clinical Impression: Dizziness Chest pain Qualifiers: Chest pain type: unspecified Qualified Code(s): R07.9 - Chest pain, unspecified Condition: Stable Disposition: HOME, SELF-CARE Instructions: Chest Pain of Unclear Cause ([facility]), Dizziness ([facility]) Additional Instructions: Follow up with your primary care provider in one to 2 days. Return to the emergency room immediately if symptoms worsen or any additional concerns.
[2017-01-30 13:41] LABS: ABSOLUTE BASOPHILS # (AUTO) 0.1 10^3/uL (0.0-0.2); ABSOLUTE EOSINOPHILS # (AUTO) 0.2 10^3/uL (0.0-0.6); ABSOLUTE LYMPHOCYTES (AUTO) 1.4 10^3/uL (0.5-4.7); ABSOLUTE MONOCYTES (AUTO) 0.9 10^3/uL (0.1-1.4); BASOPHILS % (AUTO) 0.5 % (0-2); EOSINOPHILS % (AUTO) 1.3 % (0-6); LYMPHOCYTES % (AUTO) 11.6 % (13-45); MEAN CORPUSCULAR HEMOGLOBIN 30.5 pg (27.0-33.4); MEAN CORPUSCULAR HGB CONC 32.5 g/dL (32.0-36.0); MEAN CORPUSCULAR VOLUME 94 fl (80-97); MONOCYTES % (AUTO) 7.1 % (3-13); RED BLOOD COUNT 4.26 10^6/uL (4.35-5.55); RED CELL DISTRIBUTION WIDTH 14.1 % (11.5-14.0); SEGMENTED NEUTROPHILS % (AUTO) 79.5 % (42-78); WHITE BLOOD COUNT 12.5 10^3/uL (4.0-10.5)
[2017-01-30 13:57] LABS: ANION GAP 14 (5-19); BLOOD UREA NITROGEN 18 mg/dL (7-20); CALCIUM 7.8 mg/dL (8.4-10.2); CARBON DIOXIDE 28 mmol/L (22-30); CHLORIDE 100 mmol/L (98-107); CREATININE RESULT 3.19 mg/dL (0.52-1.25); GLUCOSE 96 mg/dL (75-110); POTASSIUM 4.6 mmol/L (3.6-5.0); SODIUM 141.9 mmol/L (137-145)
[2017-01-30 14:18] LABS: VENOUS BLOOD BASE EXCESS 4.2 mmol/L; VENOUS BLOOD HCO3 30.2 mmol/L (20-32); VENOUS BLOOD PH 7.39 (7.30-7.42)
--- NOTE | 2017-01-30 14:22 | RADIOLOGY REPORT (SQ) ---
EXAM DESCRIPTION: CHEST PA/LAT COMPLETED DATE/TIME: 01/30/2017 1:49 pm REASON FOR STUDY: cough COMPARISON: 09/24/2016 EXAM PARAMETERS: NUMBER OF VIEWS: two views TECHNIQUE: Digital Frontal and Lateral radiographic views of the chest acquired. RADIATION DOSE: NA LIMITATIONS: none FINDINGS: LUNGS AND PLEURA: No opacities, masses or pneumothorax. No pleural effusion. MEDIASTINUM AND HILAR STRUCTURES: No masses or contour abnormalities. HEART AND VASCULAR STRUCTURES: Heart normal size. No evidence for failure. BONES: No acute findings. Mild thoracic spondylosis. HARDWARE: None in the chest. OTHER: No other significant finding. IMPRESSION: NO SIGNIFICANT RADIOGRAPHIC FINDING IN THE CHEST. TECHNICAL DOCUMENTATION: JOB ID: [id number] [employer]- All Rights Reserved
[2017-01-30 16:07] VITALS: BP 111/59
--- NOTE | 2017-01-30 22:42 | EKG REPORT ---
SEVERITY:- NORMAL ECG - SINUS RHYTHM : Confirmed by: Ron Hernandez 30-Jan-2017 22:41:46
== END 2017-01-30 16:07 | disposition home or self-care (01) ==
LOC: ER 12:18
DX: R53.1 Weakness (principal); R07.9 Chest pain, unspecified; R42 Dizziness and giddiness; F17.200 Nicotine dependence, unspecified, uncomplicated; E78.00 Pure hypercholesterolemia, unspecified; E10.22 Type 1 diabetes mellitus with diabetic chronic kidney disease; I12.0 Hypertensive chronic kidney disease with stage 5 chronic kidney disease or end stage renal disease; N18.6 End stage renal disease; Z99.2 Dependence on renal dialysis; I25.2 Old myocardial infarction; Z86.73 Personal history of transient ischemic attack (TIA), and cerebral infarction without residual deficits
CPT/HCPCS: 36415; 71020; 80048; 82803; 84484; 85025; 93005; 93010; 94640; 99285

== ENCOUNTER 2017-07-19 11:29 | Emergency (ER) | payer OTHER, MEDICAID ==
[2017-07-19] MEDS ORDERED: NORMAL SALINE 1000 ML 500 ML IV ONE (11:59)
--- NOTE | 2017-07-19 12:01 | ER Document Report ---
ED Medical Screen (RME) - General Chief Complaint: Cough Stated Complaint: CONGESTION,COUGH Time Seen by Provider: 07/19/17 11:54 Notes: Patient was at dialysis today. His run was shorter than usual due to the way he felt. He states he is feeling very lightheaded weak dizzy and was having chest pain. TRAVEL OUTSIDE OF THE [place] IN LAST 30 DAYS: No - Related Data Allergies/Adverse Reactions: No Known Allergies Allergy (Verified 07/19/17 11:30) Past Medical History - Social History Chew tobacco use (# tins/day): No Frequency of alcohol use: None Drug Abuse: None - Past Medical History Cardiac Medical History: Reports: Hx Coronary Artery Disease - CHOLESTEROL, Hx Heart Attack, Hx Hypercholesterolemia, Hx Hypertension Denies: Hx DVT, Hx Pulmonary Embolism Pulmonary Medical History: Reports: Hx Asthma, Hx COPD, Hx Pneumonia Denies: Hx Bronchitis Neurological Medical History: Reports: Hx Cerebrovascular Accident, Hx Seizures - History of seizure when renal failure discovered; never on antiepileptic Endocrine Medical History: Reports: Hx Diabetes Mellitus Type 1. Denies: Hx Diabetes Mellitus Type 2, Hx Hyperthyroidism, Hx Hypothyroidism Renal/ Medical History: Reports: Hx End Stage Renal Disease, Hx Hemodialysis. Denies: Hx Peritoneal Dialysis GI Medical History: Reports: Hx Gastroesophageal Reflux Disease. Denies: Hx Cirrhosis, Hx Hepatitis Musculoskeltal Medical History: Reports Hx Arthritis Psychiatric Medical History: Reports: Hx Depression Infectious Medical History: Denies: Hx Hepatitis Past Surgical History: Reports: Hx Orthopedic Surgery, Hx Vascular Surgery - fistula left arm, Other - Peritoneal dialysis catheter placement - Immunizations Immunizations up to date: Yes Hx Diphtheria, Pertussis, Tetanus Vaccination: - UNSURE Physical Exam - Vital signs Vitals: Temp Pulse Resp BP Pulse Ox 97.5 F 97 20 93/61 L 100 07/19/17 11:37 07/19/17 11:37 07/19/17 11:37 07/19/17 11:37 07/19/17 11:37 Course - Vital Signs Vital signs: Temp Pulse Resp BP Pulse Ox 97.5 F 97 20 93/61 L 100 07/19/17 11:37 07/19/17 11:37 07/19/17 11:37 07/19/17 11:37 07/19/17 11:37
[2017-07-19 12:29] LABS: ABSOLUTE BASOPHILS # (AUTO) 0.1 10^3/uL (0.0-0.2); ABSOLUTE EOSINOPHILS # (AUTO) 0.1 10^3/uL (0.0-0.6); ABSOLUTE LYMPHOCYTES (AUTO) 1.6 10^3/uL (0.5-4.7); ABSOLUTE NEUT (AUTO) 8.2 10^3/uL (1.7-8.2); BASOPHILS % (AUTO) 0.7 % (0-2); EOSINOPHILS % (AUTO) 1.2 % (0-6); HEMATOCRIT 44.7 % (37.9-51.0); HEMOGLOBIN 14.9 g/dL (13.5-17.0); LYMPHOCYTES % (AUTO) 14.2 % (13-45); MEAN CORPUSCULAR HGB CONC 33.3 g/dL (32.0-36.0); MEAN CORPUSCULAR VOLUME 93 fl (80-97); MONOCYTES % (AUTO) 9.2 % (3-13); PLATELET COUNT 271 10^3/uL (150-450); RED BLOOD COUNT 4.79 10^6/uL (4.35-5.55); RED CELL DISTRIBUTION WIDTH 14.1 % (11.5-14.0); SEGMENTED NEUTROPHILS % (AUTO) 74.7 % (42-78); TOTAL CELLS COUNTED % (AUTO) 100 %; WHITE BLOOD COUNT 11.1 10^3/uL (4.0-10.5)
[2017-07-19 12:51] LABS: ALANINE AMINOTRANSFERASE 20 U/L (21-72); ALBUMIN 4.9 g/dL (3.5-5.0); ALKALINE PHOSPHATASE 103 U/L (38-126); ASPARTATE AMINO TRANSFERASE 22 U/L (17-59); BILIRUBIN,DIRECT 0.5 mg/dL (0.0-0.4); BILIRUBIN,TOTAL 0.6 mg/dL (0.2-1.3); BLOOD UREA NITROGEN 34 mg/dL (7-20); GLUCOSE 109 mg/dL (75-110); POTASSIUM 5.2 mmol/L (3.6-5.0); TOTAL PROTEIN 8.3 g/dL (6.3-8.2)
[2017-07-19 12:58] LABS: ANION GAP 16 (5-19); CARBON DIOXIDE 31 mmol/L (22-30); CHLORIDE 94 mmol/L (98-107); SODIUM 140.7 mmol/L (137-145)
[2017-07-19 13:06] LABS: VENOUS BLOOD BASE EXCESS 2.6 mmol/L; VENOUS BLOOD HCO3 28.6 mmol/L (20-32); VENOUS BLOOD PCO2 48.6 mmHg (35-63); VENOUS BLOOD PH 7.39 (7.30-7.42)
--- NOTE | 2017-07-19 14:07 | RADIOLOGY REPORT (SQ) ---
EXAM DESCRIPTION: CHEST PA/LAT COMPLETED DATE/TIME: 07/19/2017 1:26 pm REASON FOR STUDY: cough COMPARISON: None. EXAM PARAMETERS: NUMBER OF VIEWS: two views TECHNIQUE: Digital Frontal and Lateral radiographic views of the chest acquired. RADIATION DOSE: NA LIMITATIONS: none FINDINGS: LUNGS AND PLEURA: No opacities, masses or pneumothorax. No pleural effusion. MEDIASTINUM AND HILAR STRUCTURES: No masses or contour abnormalities. HEART AND VASCULAR STRUCTURES: Heart normal size. No evidence for failure. BONES: No acute findings. HARDWARE: None in the chest. OTHER: No other significant finding. IMPRESSION: NO SIGNIFICANT RADIOGRAPHIC FINDING IN THE CHEST. TECHNICAL DOCUMENTATION: JOB ID: [id number] [employer]- All Rights Reserved
[2017-07-19] MEDS ORDERED: IPRATROPIUM/ALBUTEROL 0.5-2.5 MG/3 ML AMPUL NEB ONE (14:48)
[2017-07-19] MEDS ORDERED: PREDNISONE 20 MG TABLET PO ONE (14:49)
--- NOTE | 2017-07-19 14:51 | ER Document Report ---
ED General - General Chief Complaint: Cough Stated Complaint: CONGESTION,COUGH Time Seen by Provider: 07/19/17 11:54 Mode of Arrival: Ambulatory Information source: Patient Notes: Patient states that he was at dialysis today having a shortened session due to the bad weather. Patient states that around 915 he developed body cramps to his left arm and left leg. Patient states that he started to have some chest cramping to the right side of his chest and felt like he was getting congested. Patient states that he took a break and went outside and started to become dizzy and nauseated. Patient states that he developed worsening cough, wheezing and left sided chest discomfort. Patient presently denies any chest pain symptoms. Patient takes aspirin at home. Patient does state he has a history of asthma as well as COPD and is currently out of his nebulizer medication at home. Patient does report worsening cough and increased sputum production over the past few days. TRAVEL OUTSIDE OF THE [place] IN LAST 30 DAYS: No - HPI Onset: This morning Onset/Duration: Gradual Quality of pain: Cramping Pain Level: 3 Associated symptoms: Chest pain, Nonproductive cough. denies: Fever, Headache, Nausea, Vomiting Exacerbated by: Denies Relieved by: Denies Similar symptoms previously: No Recently seen / treated by doctor: Yes - Seen at dialysis today - Related Data Allergies/Adverse Reactions: No Known Allergies Allergy (Verified 07/19/17 11:30) Past Medical History - General Information source: Patient - Social History Smoking Status: Current Every Day Smoker Chew tobacco use (# tins/day): No Frequency of alcohol use: None Drug Abuse: None Occupation: None Lives with: Family Family History: Reviewed & Not Pertinent Patient has suicidal ideation: No Patient has homicidal ideation: No - Past Medical History Cardiac Medical History: Reports: Hx Coronary Artery Disease - CHOLESTEROL, Hx Heart Attack, Hx Hypercholesterolemia, Hx Hypertension Denies: Hx DVT, Hx Pulmonary Embolism Pulmonary Medical History: Reports: Hx Asthma, Hx COPD, Hx Pneumonia Denies: Hx Bronchitis Neurological Medical History: Reports: Hx Cerebrovascular Accident, Hx Seizures - History of seizure when renal failure discovered; never on antiepileptic Endocrine Medical History: Reports: Hx Diabetes Mellitus Type 1. Denies: Hx Diabetes Mellitus Type 2, Hx Hyperthyroidism, Hx Hypothyroidism Renal/ Medical History: Reports: Hx End Stage Renal Disease, Hx Hemodialysis. Denies: Hx Peritoneal Dialysis GI Medical History: Reports: Hx Gastroesophageal Reflux Disease. Denies: Hx Cirrhosis, Hx Hepatitis Musculoskeltal Medical History: Reports Hx Arthritis Psychiatric Medical History: Reports: Hx Depression Infectious Medical History: Denies: Hx Hepatitis Past Surgical History: Reports: Hx Orthopedic Surgery, Hx Vascular Surgery - fistula left arm, Other - Peritoneal dialysis catheter placement - Immunizations Immunizations up to date: Yes Hx Diphtheria, Pertussis, Tetanus Vaccination: - UNSURE Review of Systems - Review of Systems Constitutional: No symptoms reported. denies: Fever EENT: Nose congestion Cardiovascular: Chest pain Respiratory: Cough, Sputum, Wheezing Gastrointestinal: No symptoms reported. denies: Nausea, Vomiting Genitourinary: No symptoms reported Male Genitourinary: No symptoms reported Musculoskeletal: No symptoms reported. denies: Back pain Hematologic/Lymphatic: No symptoms reported Neurological/Psychological: No symptoms reported Physical Exam - Vital signs Vitals: Temp Pulse Resp BP Pulse Ox 97.5 F 97 20 93/61 L 100 07/19/17 11:37 07/19/17 11:37 07/19/17 11:37 07/19/17 11:37 07/19/17 11:37 - General General appearance: Appears well, Alert In distress: None - HEENT Head: Normocephalic, Atraumatic Eyes: Normal Conjunctiva: Normal Nasal: Normal Mouth/Lips: Normal Mucous membranes: Normal Neck: Normal, Supple. No: Lymphadenopathy - Respiratory Respiratory status: No respiratory distress Chest status: Nontender Breath sounds: Nonproductive cough, Rhonchi, Wheezing Chest palpation: Normal. No: Tender - Cardiovascular Rhythm: Regular Heart sounds: S1 appreciated, S2 appreciated Murmur: No - Abdominal Inspection: Obese Distension: No distension Bowel sounds: Normal Tenderness: Nontender Organomegaly: No organomegaly - Back Back: Normal, Nontender. No: CVA tenderness - Extremities General upper extremity: Normal inspection, Normal ROM General lower extremity: Normal inspection, Normal ROM. No: Edema - Neurological Neuro grossly intact: Yes Cognition: Normal [place] Coma Scale Eye Opening: Spontaneous [place] Coma Scale Verbal: Oriented [place] Coma Scale Motor: Obeys Commands [place] Coma Scale Total: 15 - Psychological Associated symptoms: Normal affect, Normal mood - Skin Skin Temperature: Warm Skin Moisture: Dry Skin Color: Normal Course - Re-evaluation Re-evalutation: 07/19/17 15:45 Patient with increased air movement and decreased wheezing after initial breathing treatment. 07/19/17 17:32 Wheezing resolved after third nebulizer treatment. Patient continues to deny any chest discomfort this time. Patient does report continued productive cough. Consulted with Dr. Freeman guarding patient presentation and diagnostic evaluation. Agrees with plan to treat for COPD exacerbation. Discussed treatment plan with patient. Patient agrees with plan and does not feel that he needs to be admitted at this time. Because worsening symptoms that patient should return immediately for. Patient verbalized understanding and agrees with plan of care. Patient does state that he is currently out of his medication for his nebulizer at home. - Vital Signs Vital signs: Temp Pulse Resp BP Pulse Ox 98.7 F 97 19 98/67 L 95 07/19/17 18:01 07/19/17 11:37 07/19/17 18:01 07/19/17 18:01 07/19/17 18:01 - Laboratory Result Diagrams: 07/19/17 12:10 07/19/17 12:10 Laboratory results interpreted by me: 07/19/17 07/19/17 07/19/17 12:10 12:10 16:10 WBC 11.1 H RDW 14.1 H Potassium 5.2 H Chloride 94 L Carbon Dioxide 31 H BUN 34 H Creatinine 5.10 H Est GFR ( Amer) 14 L Est GFR (Non-Af Amer) 11 L Direct Bilirubin 0.5 H ALT 20 L Total Protein 8.3 H Urine Protein 100 H Urine Blood LARGE H 07/19/17 19:28 Labs- Entire Visit 07/19/17 07/19/17 07/19/17 12:10 12:10 12:10 WBC 11.1 H RBC 4.79 Hgb 14.9 Hct 44.7 MCV 93 MCH 31.0 MCHC 33.3 RDW 14.1 H Plt Count 271 Seg Neutrophils % 74.7 Lymphocytes % 14.2 Monocytes % 9.2 Eosinophils % 1.2 Basophils % 0.7 Absolute Neutrophils 8.2 Absolute Lymphocytes 1.6 Absolute Monocytes 1.0 Absolute Eosinophils 0.1 Absolute Basophils 0.1 VBG pH VBG pCO2 VBG HCO3 VBG Base Excess Sodium 140.7 Potassium 5.2 H Chloride 94 L Carbon Dioxide 31 H Anion Gap 16 BUN 34 H Creatinine 5.10 H Est GFR ( Amer) 14 L Est GFR (Non-Af Amer) 11 L Glucose 109 Lactic Acid 1.2 Calcium 9.0 Total Bilirubin 0.6 Direct Bilirubin 0.5 H Neonat Total Bilirubin Not Reportable Neonat Direct Bilirubin Not Reportable Neonat Indirect Bili Not Reportable AST 22 ALT 20 L Alkaline Phosphatase 103 Troponin I Total Protein 8.3 H Albumin 4.9 Urine Color Urine Appearance Urine pH Ur Specific [place] Urine Protein Urine Glucose (UA) Urine Ketones Urine Blood Urine Nitrite Urine Bilirubin Urine Urobilinogen Ur Leukocyte Esterase Urine WBC (Auto) Urine RBC (Auto) U Hyaline Cast (Auto) Urine Mucus (Auto) Urine Ascorbic Acid 07/19/17 07/19/17 07/19/17 12:10 12:49 16:10 WBC RBC Hgb Hct MCV MCH MCHC RDW Plt Count Seg Neutrophils % Lymphocytes % Monocytes % Eosinophils % Basophils % Absolute Neutrophils Absolute Lymphocytes Absolute Monocytes Absolute Eosinophils Absolute Basophils VBG pH 7.39 VBG pCO2 48.6 VBG HCO3 28.6 VBG Base Excess 2.6 Sodium Potassium Chloride Carbon Dioxide Anion Gap BUN Creatinine Est GFR ( Amer) Est GFR (Non-Af Amer) Glucose Lactic Acid Calcium Total Bilirubin Direct Bilirubin Neonat Total Bilirubin Neonat Direct Bilirubin Neonat Indirect Bili AST ALT Alkaline Phosphatase Troponin I < 0.012 Total Protein Albumin Urine Color YELLOW Urine Appearance SLIGHTLY-CLOUDY Urine pH 5.0 Ur Specific [place] 1.015 Urine Protein 100 H Urine Glucose (UA) NEGATIVE Urine Ketones NEGATIVE Urine Blood LARGE H Urine Nitrite NEGATIVE Urine Bilirubin NEGATIVE Urine Urobilinogen NEGATIVE Ur Leukocyte Esterase NEGATIVE Urine WBC (Auto) 3 Urine RBC (Auto) 128 U Hyaline Cast (Auto) 1 Urine Mucus (Auto) RARE Urine Ascorbic Acid NEGATIVE 07/19/17 16:24 WBC RBC Hgb Hct MCV MCH MCHC RDW Plt Count Seg Neutrophils % Lymphocytes % Monocytes % Eosinophils % Basophils % Absolute Neutrophils Absolute Lymphocytes Absolute Monocytes Absolute Eosinophils Absolute Basophils VBG pH VBG pCO2 VBG HCO3 VBG Base Excess Sodium Potassium Chloride Carbon Dioxide Anion Gap BUN Creatinine Est GFR ( Amer) Est GFR (Non-Af Amer) Glucose Lactic Acid Calcium Total Bilirubin Direct Bilirubin Neonat Total Bilirubin Neonat Direct Bilirubin Neonat Indirect Bili AST ALT Alkaline Phosphatase Troponin I < 0.012 Total Protein Albumin Urine Color Urine Appearance Urine pH Ur Specific [place] Urine Protein Urine Glucose (UA) Urine Ketones Urine Blood Urine Nitrite Urine Bilirubin Urine Urobilinogen Ur Leukocyte Esterase Urine WBC (Auto) Urine RBC (Auto) U Hyaline Cast (Auto) Urine Mucus (Auto) Urine Ascorbic Acid - Diagnostic Test Radiology reviewed: Reports reviewed Discharge - Discharge Clinical Impression: End stage renal disease, COPD exacerbation, History of asthma Chest pain Qualifiers: Chest pain type: unspecified Qualified Code(s): R07.9 - Chest pain, unspecified Condition: Stable Disposition: HOME, SELF-CARE Instructions: Asthma ([facility]), Chronic Obstructive Lung Disease ([facility]), Chest Pain of Unclear Cause ([facility]), Inhaled Bronchodilators ([facility]), Steroid Medication Additional Instructions: Return immediately for any new or worsening symptoms Followup with your primary care provider, call tomorrow to make a followup appointment Follow-up with Dr. Coyne for a recheck, call tomorrow for an appointment Use your nebulizer at home as directed to help with your symptoms Prescriptions: Albuterol Sulfate [Ventolin 0.083% Neb 2.5 mg/3 ml Ampul] 1 vial NEB Q4 PRN #30 vial PRN Reason: Amoxicillin/Potassium Clav [Augmentin 500-125 Tablet] 1 each PO DAILY #9 tablet Prednisone [Deltasone 20 mg Tablet] 2 tab PO DAILY 4 Days tablet Referrals: CHERRI COYNE DO [Primary Care Provider] - Follow up tomorrow
[2017-07-19] MEDS ORDERED: ALBUTEROL SULFATE 0.083% NEB 2.5 MG/3 ML AMPUL NEB ONE ×2 (15:44→16:27)
[2017-07-19] MEDS ORDERED: AMOXICILLIN TR/POT CLAVULANATE 500-125 MG TAB PO ONE (15:44)
[2017-07-19 16:53] LABS: APPEARANCE,URINE SLIGHTLY-CLOUDY; BILIRUBIN,URINE NEGATIVE (NEGATIVE); COLOR,URINE YELLOW; GLUCOSE, URINE NEGATIVE (NEGATIVE); KETONES,URINE NEGATIVE (NEGATIVE); LEUKOCYTE ESTERASE,URINE NEGATIVE (NEGATIVE); NITRITE,URINE NEGATIVE (NEGATIVE); PROTEIN,URINE 100 mg/dL (NEGATIVE); URINE SPECIFIC GRAVITY 1.015; UROBILINOGEN,URINE NEGATIVE mg/dL (<2.0)
[2017-07-19 18:31] VITALS: BP 98/67
--- NOTE | 2017-07-19 19:04 | EKG REPORT ---
SEVERITY:- NORMAL ECG - SINUS RHYTHM : Confirmed by: Ron Hernandez 19-Jul-2017 19:03:38
== END 2017-07-19 18:15 | disposition home or self-care (01) ==
LOC: ER 11:29
DX: N18.6 End stage renal disease (principal); R07.9 Chest pain, unspecified; J44.1 Chronic obstructive pulmonary disease with (acute) exacerbation; R05 Cough; M79.1 Myalgia; M79.602 Pain in left arm; M79.605 Pain in left leg; R42 Dizziness and giddiness; F17.200 Nicotine dependence, unspecified, uncomplicated
CPT/HCPCS: 93005; 94640 ×2; 99284; 96360; 36415; 87040; 87086; 85025; 80053; 81001; 84484; 82803; 83605; 71046; 93010; J7512; J7030; J7620

== ENCOUNTER 2018-08-29 07:34 | Observation (INO) | payer OTHER, MEDICAID ==
[2018-08-29 07:49] LABS: ABSOLUTE BASOPHILS # (AUTO) 0.1 10^3/uL (0.0-0.2); ABSOLUTE EOSINOPHILS # (AUTO) 0.2 10^3/uL (0.0-0.6); ABSOLUTE LYMPHOCYTES (AUTO) 2.3 10^3/uL (0.5-4.7); ABSOLUTE NEUT (AUTO) 4.8 10^3/uL (1.7-8.2); BASOPHILS % (AUTO) 1.2 % (0-2); EOSINOPHILS % (AUTO) 2.1 % (0-6); HEMATOCRIT 35.3 % (37.9-51.0); HEMOGLOBIN 12.1 g/dL (13.5-17.0); LYMPHOCYTES % (AUTO) 27.7 % (13-45); MEAN CORPUSCULAR HEMOGLOBIN 33.2 pg (27.0-33.4); MEAN CORPUSCULAR HGB CONC 34.3 g/dL (32.0-36.0); MEAN CORPUSCULAR VOLUME 97 fl (80-97); MONOCYTES % (AUTO) 11.6 % (3-13); PLATELET COUNT 237 10^3/uL (150-450); RED BLOOD COUNT 3.64 10^6/uL (4.35-5.55); RED CELL DISTRIBUTION WIDTH 14.2 % (11.5-14.0); SEGMENTED NEUTROPHILS % (AUTO) 57.4 % (42-78); TOTAL CELLS COUNTED % (AUTO) 100 %; WHITE BLOOD COUNT 8.3 10^3/uL (4.0-10.5)
[2018-08-29 08:00] LABS: ALANINE AMINOTRANSFERASE 19 U/L (21-72); ALBUMIN 4.1 g/dL (3.5-5.0); ALKALINE PHOSPHATASE 69 U/L (38-126); ANION GAP 17 (5-19); ASPARTATE AMINO TRANSFERASE 37 U/L (17-59); BILIRUBIN,DIRECT 0.5 mg/dL (0.0-0.4); BILIRUBIN,TOTAL 0.5 mg/dL (0.2-1.3); BLOOD UREA NITROGEN 86 mg/dL (7-20); CALCIUM 7.8 mg/dL (8.4-10.2); CARBON DIOXIDE 20 mmol/L (22-30); CHLORIDE 104 mmol/L (98-107); CREATINE KINASE 93 U/L (55-170); GLUCOSE 107 mg/dL (75-110); POTASSIUM 5.3 mmol/L (3.6-5.0); SODIUM 141.3 mmol/L (137-145); TOTAL PROTEIN 6.8 g/dL (6.3-8.2)
[2018-08-29 08:06] LABS: INTERNATIONAL RATION (INR) 0.99; PROTHROMBIN TIME 13.6 SEC (11.4-15.4)
[2018-08-29 08:22] LABS: TROPONIN I < 0.012 ng/mL
--- NOTE | 2018-08-29 08:34 | ER Document Report ---
ED General - General Chief Complaint: Weakness Stated Complaint: WEAKNESS Time Seen by Provider: 08/29/18 08:11 TRAVEL OUTSIDE OF THE [place] IN LAST 30 DAYS: No - HPI Notes: Patient is a 63-year-old male that presents to the emergency department for chief complaint of confusion and lightheadedness. Patient is on dialysis and had his last treatment 6 days ago. He states he missed Monday's dialysis because he had diarrhea, that has since resolved. Patient family told EMS that he seemed to have some slurred speech that began last night. Patient did make it into dialysis this morning but they were con cerned that he was having slurred speech and referred him to the emergency room. Patient states he has lightheadedness and generally feels confused. He denies any associated headache, vision changes, numbness and weakness. He denies any chest pain. He does endorse shortness of breath but states that is chronic for him. He states he produces very minimal urine. He denies any fevers or chills. Past Medical History: End-stage renal disease on dialysis Past Surgical History: Left proximal upper extremity dialysis fistula Social History: Daily tobacco. Family History: Reviewed and noncontributory for presenting illness Allergies: Reviewed, see documented allergy list. REVIEW OF SYSTEMS: CONSTITUTIONAL : No fever No chills No diaphoresis No recent illness EENT: No vision changes No congestion No sore throat CARDIOVASCULAR: No chest pain No palpitations RESPIRATORY: shortness of breath No cough No difficulty breathing GASTROINTESTINAL: No abdominal pain No nausea No vomiting No diarrhea GENITOURINARY: No dysuria No hematuria No difficulty urinating MUSCULOSKELETAL: No back pain No leg pain No arm pain SKIN: No rashes No lesions LYMPHATIC: No swollen, enlarged glands. NEUROLOGICAL: lightheadedness Dizzy No headache No weakness No paresthesias PSYCHIATRIC: No anxiety No depression PHYSICAL EXAMINATION: Vital signs reviewed, nursing noted reviewed. GENERAL: Somnolent, well-nourished and in no acute distress. HEAD: Atraumatic, normocephalic. EYES: Eyes appear normal, extraocular movements intact, sclera anicteric, conjunctiva are normal. ENT: nares patent, oropharynx clear without exudates. Dry mucous membranes. NECK: Normal range of motion, supple without lymphadenopathy LUNGS: Breath sounds clear to auscultation bilaterally and equal. No wheezes rales or rhonchi. HEART: Regular rate and rhythm without murmurs ABDOMEN: Soft, nontender, normoactive bowel sounds. No rebound, guarding, or rigidity. No masses appreciated. EXTREMITIES: Proximal left upper extremity dialysis fistula with good bruit and thrill, no bleeding. good range of motion, no pitting or edema. NEUROLOGICAL: NIH=0, No focal neurological deficits. Moves all extremities spontaneously Motor and sensory grossly intact on exam. PSYCH: Flat affect, slowed speech SKIN: Warm, Dry, normal turgor, no rashes or lesions noted on exposed skin - Related Data Allergies/Adverse Reactions: No Known Allergies Allergy (Verified 08/29/18 07:52) Past Medical History - Social History Smoking Status: Current Every Day Smoker Family History: Reviewed & Not Pertinent - Past Medical History Cardiac Medical History: Reports: Hx Coronary Artery Disease - CHOLESTEROL, Hx Heart Attack, Hx Hypercholesterolemia, Hx Hypertension Denies: Hx DVT, Hx Pulmonary Embolism Pulmonary Medical History: Reports: Hx Asthma, Hx COPD, Hx Pneumonia Denies: Hx Bronchitis Neurological Medical History: Reports: Hx Cerebrovascular Accident, Hx Seizures - History of seizure when renal failure discovered; never on antiepileptic Endocrine Medical History: Reports: Hx Diabetes Mellitus Type 1. Denies: Hx Diabetes Mellitus Type 2, Hx Hyperthyroidism, Hx Hypothyroidism Renal/ Medical History: Reports: Hx End Stage Renal Disease, Hx Hemodialysis. Denies: Hx Peritoneal Dialysis GI Medical History: Reports: Hx Gastroesophageal Reflux Disease. Denies: Hx Cirrhosis, Hx Hepatitis Musculoskeletal Medical History: Reports Hx Arthritis Psychiatric Medical History: Reports: Hx Depression Infectious Medical History: Denies: Hx Hepatitis Past Surgical History: Reports: Hx Orthopedic Surgery, Hx Vascular Surgery - fistula left arm, Other - Peritoneal dialysis catheter placement - Immunizations Immunizations up to date: Yes Hx Diphtheria, Pertussis, Tetanus Vaccination: - UNSURE Physical Exam - Vital signs Vitals: Pulse Ox 96 08/29/18 07:40 Course - Re-evaluation Re-evalutation: 08/29/18 08:34 Vitals reviewed. Nursing notes reviewed. Patient is mildly somnolent but sitting up in bed and speaking. His speech is slowed but not slurred. His NIH is 0 and he has no focal neurologic deficits. 08/29/18 10:38 Patient's lab work shows a creatinine of 13 which is high for him. He is acidotic. His CT brain is unremarkable. Potassium only mildly elevated at 5.3. Infection with a normal WBC count. Patient is not able to produce any urine and I am not clinically suspicious of UTI. His altered mental status is likely related to uremia. He is requiring dialysis and will be admitted to the hospital for monitoring of his mental status as well as to establish dialysis for today. Laboratory 08/29/18 08/29/18 08/29/18 07:25 07:25 07:25 WBC 8.3 RBC 3.64 L Hgb 12.1 L Hct 35.3 L MCV 97 MCH 33.2 MCHC 34.3 RDW 14.2 H Plt Count 237 Seg Neutrophils % 57.4 Lymphocytes % 27.7 Monocytes % 11.6 Eosinophils % 2.1 Basophils % 1.2 Absolute Neutrophils 4.8 Absolute Lymphocytes 2.3 Absolute Monocytes 1.0 Absolute Eosinophils 0.2 Absolute Basophils 0.1 PT INR VBG pH VBG pCO2 VBG HCO3 VBG Base Excess Sodium 141.3 Potassium 5.3 H Chloride 104 Carbon Dioxide 20 L Anion Gap 17 BUN 86 H Creatinine 13.78 H Est GFR ( Amer) 4 L Est GFR (Non-Af Amer) 4 L Glucose 107 POC Glucose Calcium 7.8 L Total Bilirubin 0.5 Direct Bilirubin 0.5 H Neonat Total Bilirubin Not Reportable Neonat Direct Bilirubin Not Reportable Neonat Indirect Bili Not Reportable AST 37 ALT 19 L Alkaline Phosphatase 69 Creatine Kinase 93 CK-MB (CK-2) 1.20 Troponin I < 0.012 Total Protein 6.8 Albumin 4.1 08/29/18 08/29/18 08/29/18 07:25 07:44 08:49 WBC RBC Hgb Hct MCV MCH MCHC RDW Plt Count Seg Neutrophils % Lymphocytes % Monocytes % Eosinophils % Basophils % Absolute Neutrophils Absolute Lymphocytes Absolute Monocytes Absolute Eosinophils Absolute Basophils PT 13.6 INR 0.99 VBG pH 7.29 L VBG pCO2 43.1 VBG HCO3 20.4 VBG Base Excess -6.0 Sodium Potassium Chloride Carbon Dioxide Anion Gap BUN Creatinine Est GFR ( Amer) Est GFR (Non-Af Amer) Glucose POC Glucose 104 Calcium Total Bilirubin Direct Bilirubin Neonat Total Bilirubin Neonat Direct Bilirubin Neonat Indirect Bili AST ALT Alkaline Phosphatase Creatine Kinase CK-MB (CK-2) Troponin I Total Protein Albumin 08/29/18 10:[address] 08/29/18 08:30 IMPRESSION: NO ACUTE INTRACRANIAL IMAGING FINDINGS. EVIDENCE OF ACUTE STROKE: NO. Chest X-Ray 08/29/18 08:35 IMPRESSION: Cardiomegaly without acute abnormality of the lungs in AP projection. - Vital Signs Vital signs: Temp Pulse Resp BP Pulse Ox 97.7 F 79 17 120/65 94 08/29/18 07:50 08/29/18 07:43 08/29/18 09:08 08/29/18 09:08 08/29/18 09:08 - Laboratory Result Diagrams: 08/29/18 07:25 08/29/18 07:25 Laboratory results interpreted by me: 08/29/18 08/29/18 08/29/18 07:25 07:25 08:49 RBC 3.64 L Hgb 12.1 L Hct 35.3 L RDW 14.2 H VBG pH 7.29 L Potassium 5.3 H Carbon Dioxide 20 L BUN 86 H Creatinine 13.78 H Est GFR ( Amer) 4 L Est GFR (Non-Af Amer) 4 L Calcium 7.8 L Direct Bilirubin 0.5 H ALT 19 L Discharge - Discharge Clinical Impression: Uremia, Metabolic acidosis, Acute confusion Condition: Stable Disposition: ADMITTED INPATIENT Admitting Provider: Hospitalist Unit Admitted: Medical Floor
[2018-08-29 08:57] LABS: VENOUS BLOOD HCO3 20.4 mmol/L (20-32); VENOUS BLOOD PCO2 43.1 mmHg (35-63); VENOUS BLOOD PH 7.29 (7.30-7.42)
--- NOTE | 2018-08-29 09:14 | RADIOLOGY REPORT (SQ) ---
EXAM DESCRIPTION: CHEST SINGLE VIEW COMPLETED DATE/TIME: 08/29/2018 9:05 am REASON FOR STUDY: short of breath COMPARISON: 07/19/2017 EXAM PARAMETERS: NUMBER OF VIEWS: One view. TECHNIQUE: Single frontal radiographic view of the chest acquired. RADIATION DOSE: NA LIMITATIONS: None. FINDINGS: LUNGS AND PLEURA: No opacities, masses or pneumothorax. No pleural effusion. MEDIASTINUM AND HILAR STRUCTURES: No masses. Contour normal. HEART AND VASCULAR STRUCTURES: Cardiomegaly. BONES: No acute findings. HARDWARE: None in the chest. OTHER: No other significant finding. IMPRESSION: Cardiomegaly without acute abnormality of the lungs in AP projection. TECHNICAL DOCUMENTATION: JOB ID: [id number] [employer]- All Rights Reserved Reading location - IP/workstation name: [email or web address]
--- NOTE | 2018-08-29 09:20 | RADIOLOGY REPORT (SQ) ---
EXAM DESCRIPTION: CT HEAD WITHOUT COMPLETED DATE/TIME: 08/29/2018 9:01 am REASON FOR STUDY: confusion COMPARISON: 09/21/2016 TECHNIQUE: Axial images acquired through the brain without intravenous contrast. Images reviewed wi th bone, brain and subdural windows. Additional sagittal and coronal reconstructions were generated. Images stored on PACS. All CT scanners at this facility use dose modulation, iterative reconstruction, and/or weight based d osing when appropriate to reduce radiation dose to as low as reasonably achievable (ALARA). [facility]: Dose Right [facility]: CareDose [facility]: Dose Right [facility]: Teradose 4D [facility]: [employer] RADIATION DOSE: CT Rad equipment meets quality standard of care and radiation dose reduction techniq ues were employed. CTDIvol: 53.2 mGy. DLP: 1017 mGy-cm. mGy. LIMITATIONS: None. FINDINGS: VENTRICLES: Normal size and contour. CEREBRUM: No masses. No hemorrhage. No midline shift. No evidence for acute infarction. Normal gra y/white matter differentiation. No areas of low density in the white matter. CEREBELLUM: No masses. No hemorrhage. No alteration of density. No evidence for acute infarction. EXTRAAXIAL SPACES: No fluid collections. No masses. ORBITS AND GLOBE: No intra- or extraconal masses. Normal contour of globe without masses. CALVARIUM: No fracture. PARANASAL SINUSES: No fluid or mucosal thickening. SOFT TISSUES: No mass or hematoma. OTHER: No other significant finding. IMPRESSION: NO ACUTE INTRACRANIAL IMAGING FINDINGS. EVIDENCE OF ACUTE STROKE: NO. COMMENT: Quality ID # [id number]: Final reports with documentation of one or more dose reduction techniques (e.g., Automated exposure control, adjustment of the mA and/or kV according to patient size, use of iterative reconstruction technique) TECHNICAL DOCUMENTATION: JOB ID: [id number] [employer]- All Rights Reserved Reading location - IP/workstation name: [email or web address]
[2018-08-29] MEDS ORDERED: METHYLPREDNISOLONE INJ 125 MG/2 ML SDV IV ONE (12:02)
[2018-08-29] MEDS ORDERED: IPRATROPIUM/ALBUTEROL 0.5-2.5 MG/3 ML AMPUL NEB ONE ×2 (12:33→13:00)
[2018-08-29] MEDS ORDERED: METHYLPREDNISOLONE INJ 125 MG/2 ML SDV ONE (12:33)
[2018-08-29] MEDS ORDERED: OXYCODONE-ACETAMINOPHEN 5-325 MG TABLET PO ONE (13:00)
[2018-08-29] MEDS ORDERED: ALBUTEROL SULFATE 0.083% NEB 2.5 MG/3 ML AMPUL NEB PRN (13:23)
[2018-08-29] MEDS ORDERED: ACETAMINOPHEN 325 MG TABLET PO PRN (13:23)
[2018-08-29] MEDS ORDERED: MAG HYDROX/AL HYDROX/SIMETH SUSP 30 ML UDCUP PO PRN (13:23)
[2018-08-29] MEDS ORDERED: OXYCODONE-ACETAMINOPHEN 5-325 MG TABLET PO PRN (13:23)
[2018-08-29] MEDS ORDERED: ONDANSETRON HCL INJ/PF 4 MG/2 ML SDV IV PRN (13:23)
[2018-08-29] MEDS ORDERED: PROMETHAZINE HCL INJ 25 MG/1 ML VIAL IV PRN (13:23)
[2018-08-29] MEDS ORDERED: MAGNESIUM HYDROXIDE SUSP 30 ML UDCUP PO PRN (13:23)
[2018-08-29] MEDS ORDERED: PROMETHAZINE HCL INJ 25 MG/1 ML VIAL IV ONE (13:30)
[2018-08-29] MEDS: HEPARIN SOD (PORCINE) 5,000 UNIT/ML 1 ML SYRINGE SUBCUT SCH ×2 (14:52→22:20)
[2018-08-29] MEDS: IPRATROPIUM/ALBUTEROL 0.5-2.5 MG/3 ML AMPUL NEB SCH (15:55)
[2018-08-29] MEDS ORDERED: DIAZEPAM 5 MG TABLET PO PRN (18:10)
[2018-08-29] MEDS ORDERED: DEXTROSE 40% GEL 15 GM TUBE PO PRN ×2 (18:11)
[2018-08-29] MEDS ORDERED: DEXTROSE 50%-WATER 25 GM/50 ML DISP.SYRIN IV PRN ×2 (18:11)
[2018-08-29] MEDS ORDERED: GLUCAGON,HUMAN RECOMB 1 MG INJ IM PRN (18:11)
--- NOTE | 2018-08-29 18:13 | PDOC H&P ---
History of Present Illness Admission Date/PCP: 08/29/18 11:03 CHERRI RETANA DO History of Present Illness: GET BURGESS is a 63 year old male with a past medical history significant for end-stage renal disease on dialysis, insulin-dependent diabetes mellitus, COPD, benzodiazepine dependence with continuous use and tobacco dependence with continuous use who presented to the emergency department today from dialysis prior to starting his session for report of lethargy and slurred speech. The ED provider noted that the patient was A&O x4 but with delayed speech and otherwise unremarkable neuro exam. Evaluation revealed baseline anemia, minimally elevated potassium (5.3), elevated creatinine and BUN from baseline (of note, patient missed dialysis session on Monday), normal chest x-ray and benign head CT. At the time of my exam, the patient was now fully alert, oriented, and without lethargy or slurred speech. He tells me that he took valium (10 mg) approximately 1 hour prior to his dialysis session for his chronic discomfort. Otherwise, the patient reports slight shortness of breath, which he also notes to be his baseline, and diarrhea illness earlier this week at which has subsequently resolved. He does report continued poor appetite, but is tolerating p.o. fluids. Discussed with Dr. Waller option for discharging patient from the ED directly to dialysis. Dr. Waller felt this would be appropriate. Unfortunately, upon returning to the patient's room and found him to be vomiting. Therefore, he is admitted overnight for observation and management uremia secondary to missed dialysis session. Past Medical History Cardiac Medical History: Reports: Coronary Artery Disease - CHOLESTEROL, Myocardial Infarction, Hyperlipidema, Hypertension Denies: DVT, Pulmonary Embolism Pulmonary Medical History: Reports: Asthma, Chronic Obstructive Pulmonary Disease (COPD), Pneumonia Denies: Bronchitis Neurological Medical History: Reports: Seizures - History of seizure when renal failure discovered; never on antiepileptic Endocrine Medical History: Reports: Diabetes Mellitus Type 1 Denies: Diabetes Mellitus Type 2, Hyperthyroidism, Hypothyroidism Renal/ Medical History: Reports: End Stage Renal Disease GI Medical History: Reports: Gastroesophageal Reflux Disease Denies: Cirrhosis, Hepatitis Musculoskeltal Medical History: Reports: Arthritis Psychiatric Medical History: Reports: Depression Hematology: Reports: Anemia Past Surgical History Past Surgical History: Reports: Orthopedic Surgery, Vascular Surgery - fistula left arm, Other - Peritoneal dialysis catheter placement Social History Information Source: Patient Smoking Status: Current Every Day Smoker Frequency of Alcohol Use: None Hx Recreational Drug Use: No Drugs: None Hx Prescription Drug Abuse: No Family History Family History: Reviewed & Not Pertinent Parental Family History Reviewed: Yes Children Family History Reviewed: Yes Sibling(s) Family History Reviewed.: Yes Medication/Allergy Home Medications: Ipratropium/Albuterol Sulfate [Duoneb 3 ml Ampul] 3 ml NEB RTQ6HP PRN #120 vial.neb 08/29/18 Loperamide HCl [Imodium A-D] 2 mg PO ASDIR PRN 08/29/18 Nicotine [Nicoderm 21 mg/24 Hr Transderm Patch] 1 patch TD DAILY #30 patch.td24 08/29/18 Prednisone [Deltasone 20 mg Tablet] 20 mg PO DAILY #15 tablet 08/29/18 Allergies/Adverse Reactions: No Known Allergies Allergy (Verified 08/29/18 07:52) Review of Systems Constitutional: PRESENT: anorexia, fatigue. ABSENT: chills, fever(s), headache(s), weight gain, weight loss Eyes: ABSENT: visual disturbances Ears: ABSENT: hearing changes Cardiovascular: ABSENT: chest pain, dyspnea on exertion, edema, orthropnea, palpitations Respiratory: PRESENT: cough, dyspnea. ABSENT: hemoptysis Gastrointestinal: PRESENT: nausea, vomiting. ABSENT: abdominal pain, constipation, diarrhea, hematemesis, hematochezia Genitourinary: ABSENT: dysuria, hematuria Musculoskeletal: PRESENT: back pain. ABSENT: joint swelling Integumentary: ABSENT: rash, wounds Neurological: ABSENT: abnormal gait, abnormal speech, confusion, dizziness, focal weakness, syncope Psychiatric: ABSENT: anxiety, depression, homidical ideation, suicidal ideation Endocrine: ABSENT: cold intolerance, heat intolerance, polydipsia, polyuria Hematologic/Lymphatic: ABSENT: easy bleeding, easy bruising Physical Exam Vital Signs: Temp Pulse Resp BP Pulse Ox 97.7 F 89 16 86/51 L 94 08/29/18 07:50 08/29/18 15:55 08/29/18 17:02 08/29/18 17:02 08/29/18 17:02 Intake & Output 08/28/18 08/29/18 08/30/18 06:59 06:59 06:59 Weight 99.79 kg General appearance: PRESENT: no acute distress, disheveled, obese, well- developed, well-nourished Head exam: PRESENT: atraumatic, normocephalic Eye exam: PRESENT: conjunctiva pink, EOMI, PERRLA. ABSENT: scleral icterus Ear exam: PRESENT: normal external ear exam Mouth exam: PRESENT: moist, tongue midline Neck exam: ABSENT: carotid bruit, JVD, lymphadenopathy, thyromegaly Respiratory exam: PRESENT: prolonged expiratory phas, rhonchi, symmetrical, wheezes. ABSENT: rales Cardiovascular exam: PRESENT: RRR, tachycardia. ABSENT: diastolic murmur, rubs, systolic murmur Pulses: PRESENT: normal dorsalis pedis pul Vascular exam: PRESENT: normal capillary refill GI/Abdominal exam: PRESENT: normal bowel sounds, soft. ABSENT: distended, guarding, mass, organolmegaly, rebound, tenderness Rectal exam: PRESENT: deferred Extremities exam: PRESENT: full ROM. ABSENT: calf tenderness, clubbing, pedal edema Neurological exam: PRESENT: alert, awake, oriented to person, oriented to place, oriented to time, oriented to situation, CN II-XII grossly intact. ABSENT: motor sensory deficit Psychiatric exam: PRESENT: appropriate affect, normal mood. ABSENT: homicidal ideation, suicidal ideation Skin exam: PRESENT: dry, intact, warm. ABSENT: cyanosis, rash Results Laboratory Results: 08/29/18 07:25 08/29/18 07:25 08/29/18 08/29/18 08/29/18 07:25 07:25 08:49 WBC 8.3 RBC 3.64 L Hgb 12.1 L Hct 35.3 L MCV 97 MCH 33.2 MCHC 34.3 RDW 14.2 H Plt Count 237 Seg Neutrophils % 57.4 Lymphocytes % 27.7 Monocytes % 11.6 Eosinophils % 2.1 Basophils % 1.2 Absolute Neutrophils 4.8 Absolute Lymphocytes 2.3 Absolute Monocytes 1.0 Absolute Eosinophils 0.2 Absolute Basophils 0.1 VBG pH 7.29 L VBG pCO2 43.1 VBG HCO3 20.4 VBG Base Excess -6.0 Sodium 141.3 Potassium 5.3 H Chloride 104 Carbon Dioxide 20 L Anion Gap 17 BUN 86 H Creatinine 13.78 H Est GFR ( Amer) 4 L Est GFR (Non-Af Amer) 4 L Glucose 107 Calcium 7.8 L Total Bilirubin 0.5 AST 37 ALT 19 L Alkaline Phosphatase 69 Total Protein 6.8 Albumin 4.1 08/29/18 08/29/18 07:25 07:25 Creatine Kinase 93 CK-MB (CK-2) 1.20 Troponin I < 0.012 Impressions: Head CT 08/29/18 08:30 IMPRESSION: NO ACUTE INTRACRANIAL IMAGING FINDINGS. EVIDENCE OF ACUTE STROKE: NO. Chest X-Ray 08/29/18 08:35 IMPRESSION: Cardiomegaly without acute abnormality of the lungs in AP projection. Assessment & Plan - Diagnosis (1) Uremia Is this a current diagnosis for this admission?: Yes Plan: Secondary to missed dialysis appointment. Initially the patient appeared to be stable for discharge directly to dialysis for session, however became nauseated with emesis. He is admitted to observational status on continuous cardiac telemetry. Nephrology was consulted; they have been able to arrange for the patient to receive dialysis here today. I spoke to Dr. Waller late this evening following the patient's dialysis session; no concerns at this time, likely ready for discharge in the morning. (2) COPD exacerbation Is this a current diagnosis for this admission?: Yes Plan: Mild; patient was maintaining oxygen saturations on room air though with mild tachycardia (HR 104), and adventitious lung sounds (rhonchi and wheezing). Supplemental oxygen as needed to maintain saturations >89% IV Solu-Medrol 125 mg x1; start prednisone 60 mg p.o. in the morning. Scheduled and as needed nebulizer treatments. Mucinex twice daily. Flutter valve. (3) ESRD (end stage renal disease) on dialysis Is this a current diagnosis for this admission?: Yes Plan: Nephrology is consulted; have arranged for the patient to receive dialysis today. Should resume his normal Monday, Monday, Monday schedule at discharge. (4) Tobacco dependency Is this a current diagnosis for this admission?: Yes Plan: Smoking cessation is strongly encouraged; nicotine replacement therapies are provided. (5) Benzodiazepine dependence Is this a current diagnosis for this admission?: Yes Plan: Verified with [place] controlled substance database; patient is prescribed Valium 10 mg twice daily. We will continue home dose to prevent withdrawal symptoms. (6) Chronic pain Is this a current diagnosis for this admission?: Yes Plan: Patient reports chronic pain; previously was prescribed Percocet. Review of the [place] controlled substance database shows that his last prescription was filled in February. Will provide as needed Tylenol and oxycodone 5/325 as needed for pain. (7) Diabetes Qualifiers: Diabetes mellitus type: type 1 Chronic kidney disease stage: on chronic dialysis Is this a current diagnosis for this admission?: Yes Plan: Patient is currently placed on a brat diet. Accu-Cheks before meals and at bedtime with Humalog sliding scale coverage. Per glycemia protocol in place. - Time Time Spent: Greater than 70 Minutes Smoking Cessation Education: 3 to 10 minutes Medications reviewed and adjusted accordingly: Yes Anticipated discharge: Home Within: within 24 hours
--- NOTE | 2018-08-29 21:42 | PDOC CONSULTATION ---
Consultation Consult Date: 08/29/18 Attending physician:: DENICE BRUNO Consult reason:: I was asked to see the patient due to confusion in a patient who has missed hemodialysis. 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 Patient's last hemodialysis was Monday, 5 days ago. He missed his dialysis last Monday because of diarrhea. Family has noticed some slurring of speech last night. This morning he went to [facility] and was noted to be confused associated with slurring of speech. EMS was called and patient was brought to the emergency room. Patient reports that he took his Valium 10 mg prior to hemodialysis which is what he always does. In the emergency room he actually was found to be oriented and I have discussed this with the hospitalist, Denice Bruno and the plan initially was to discharge the patient from the emergency room and have him go to [facility] to have his outpatient dialysis treatment but then he started vomiting so the discharge was held. So subsequently I have to arrange hemodialysis treatment in the emergency room. I saw the patient during dialysis treatment in the emergency room. Patient was communicative, coherent and appropriate. His blood pressure is relatively low which is his baseline anyways. Patient felt that he was 5-7 kg over his dry weight. We set the goal for 4 L ultrafiltration and successfully we were able to get 3800 mL. Patient tolerated procedure well without any problem. Past Medical History Cardiac Medical History: Reports: Coronary Artery Disease - CHOLESTEROL, Hyperlipidemia, Hypertension-primary, Myocardial Infarction Pulmonary Medical History: Reports: Asthma, Chronic Obstructive Pulmonary D isease (COPD), Pneumonia EENT Medical History: Reports: Other - Hearing loss Neurological Medical History: Reports: Ischemic CVA, Seizures - History of seizure when renal failure discovered; never on antiepileptic, Other - Left hemiparesis Endocrine Medical History: Reports: Diabetes Mellitus Type 2 Renal/ Medical History: Reports: End Stage Renal Disease, Hyperphosphatemia, Secondary Hyperparathyroidism, Other - Complicated cyst on the left kidney GI Medical History: Reports: Gastroesophageal Reflux Disease, Peptic Ulcer Disease, Other - History of GI bleed Musculoskeltal Medical History: Reports: Arthritis, Other - Chronic back pain Psychiatric Medical History: Reports: Depression, Tobacco Dependency Hematology Medical History: Reports Anemia of Chronic Kidney Disease Past Surgical History Past Surgical History: Reports: Dialysis Access Surgery AVF, Dialysis Access Surgery PD, Orthopedic Surgery, Tonsillectomy Social History Information Source: [facility] Records Lives with: Family Smoking Status: Current Every Day Smoker Frequency of Alcohol Use: None Hx Recreational Drug Use: No Drugs: None Hx Prescription Drug Abuse: No Family History Family History: Chronic Kidney Disease - Mother, DM - Mother, sister and brot her, Hypertension - Mother, father, sister, brother, Malignancy - Mother and maternal grandmother Parental Family History Reviewed: Yes Children Family History Reviewed: Yes Sibling(s) Family History Reviewed.: Yes Medication/Allergy Home Medications: Ipratropium/Albuterol Sulfate [Duoneb 3 ml Ampul] 3 ml NEB RTQ6HP PRN #120 vial.neb 08/29/18 Loperamide HCl [Imodium A-D] 2 mg PO ASDIR PRN 08/29/18 Nicotine [Nicoderm 21 mg/24 Hr Transderm Patch] 1 patch TD DAILY #30 patch.td24 08/29/18 Prednisone [Deltasone 20 mg Tablet] 20 mg PO DAILY #15 tablet 08/29/18 Allergies/Adverse Reactions: No Known Allergies Allergy (Verified 08/29/18 07:52) Review of Systems All systems: reviewed and no additional remarkable complaints except as stated Review of Systems: Constitutional: ABSENT: chills, fatigue, fever(s), headache(s), weight gain, weight loss Eyes: ABSENT: visual disturbances Ears: ABSENT: hearing changes Cardiovascular: ABSENT: chest pain, edema, orthropnea, palpitations; admits shortness of breath Respiratory: ABSENT: cough, hemoptysis Gastrointestinal: ABSENT: abdominal pain, constipation, diarrhea, hematemesis, hematochezia, nausea; admits vomiting Genitourinary: ABSENT: dysuria, hematuria Musculoskeletal: ABSENT: joint swelling Integumentary: ABSENT: rash, wounds Neurological: ABSENT: abnormal gait, abnormal speech, dizziness, focal weakness, numbness, syncope; admits confusion earlier with reported slurring of speech Psychiatric: ABSENT: anxiety, depression Endocrine: ABSENT: cold intolerance, heat intolerance, polydipsia, polyuria Hematologic/Lymphatic: ABSENT: easy bleeding, easy bruising, lymphadenopathy Physical Exam Vital Signs: Temp Pulse Resp BP Pulse Ox 97.2 F 89 20 115/59 L 95 08/29/18 20:43 08/29/18 15:55 08/29/18 20:31 08/29/18 20:31 08/29/18 20:51 Intake & Output 08/28/18 08/29/18 08/30/18 06:59 06:59 06:59 Output Total 3800 Balance -3800 Weight 99.79 kg Vitals on dialysis: Blood pressure 89/64, heart rate of 96, oxygen saturation 94%, blood flow rate of 450 mL/min, dialysate flow rate of 800 mL/min. Exam: General appearance: No acute distress, cooperative, well-developed, well- nourished, appears disheveled Head exam: PRESENT: atraumatic, normocephalic Eye exam: PRESENT: Conjunctiva pale, EOMI, PERRLA. ABSENT: conjunctival injection, scleral icterus Mouth exam: PRESENT: moist, neck supple, tongue midline Neck exam: PRESENT: full ROM. ABSENT: carotid bruit, JVD, lymphadenopathy, thy romegaly Respiratory exam: PRESENT: Decreased to auscultation bilaterally. Minimal expiratory wheezes ABSENT: rales, rhonchi, stridor Cardiovascular exam: PRESENT: RRR, +S1, +S2. ABSENT: systolic murmur Pulses: PRESENT: normal radial pulses, normal dorsalis pedis pulses GI/Abdominal exam: PRESENT: normal bowel sounds, soft. ABSENT: guarding, mass, tenderness Rectal exam: Deferred Extremities exam: PRESENT: full ROM. ABSENT: calf tenderness, pedal edema Musculoskeletal: PRESENT: full ROM. ABSENT: deformity Neurological exam: PRESENT: alert, Awake, Oriented to person, Oriented to place, Oriented to time, reflexes normal, CN II-XII grossly intact. ABSENT: motor sensory deficit Psychiatric exam: PRESENT: appropriate affect, normal mood. ABSENT: homicidal ideation, suicidal ideation Skin exam: PRESENT: intact, dry, warm. ABSENT: rash Results Laboratory Results: 08/29/18 07:25 08/29/18 07:25 08/29/18 08/29/18 08/29/18 07:25 07:25 08:49 WBC 8.3 RBC 3.64 L Hgb 12.1 L Hct 35.3 L MCV 97 MCH 33.2 MCHC 34.3 RDW 14.2 H Plt Count 237 Seg Neutrophils % 57.4 Lymphocytes % 27.7 Monocytes % 11.6 Eosinophils % 2.1 Basophils % 1.2 Absolute Neutrophils 4.8 Absolute Lymphocytes 2.3 Absolute Monocytes 1.0 Absolute Eosinophils 0.2 Absolute Basophils 0.1 VBG pH 7.29 L VBG pCO2 43.1 VBG HCO3 20.4 VBG Base Excess -6.0 Sodium 141.3 Potassium 5.3 H Chloride 104 Carbon Dioxide 20 L Anion Gap 17 BUN 86 H Creatinine 13.78 H Est GFR ( Amer) 4 L Est GFR (Non-Af Amer) 4 L Glucose 107 Calcium 7.8 L Total Bilirubin 0.5 AST 37 ALT 19 L Alkaline Phosphatase 69 Total Protein 6.8 Albumin 4.1 08/29/18 08/29/18 07:25 07:25 Creatine Kinase 93 CK-MB (CK-2) 1.20 Troponin I < 0.012 Impressions: Head CT 08/29/18 08:30 IMPRESSION: NO ACUTE INTRACRANIAL IMAGING FINDINGS. EVIDENCE OF ACUTE STROKE: NO. Chest X-Ray 08/29/18 08:35 IMPRESSION: Cardiomegaly without acute abnormality of the lungs in AP projection. Assessment & Plan - Diagnosis (1) Acute encephalopathy Is this a current diagnosis for this admission?: Yes Plan: Likely secondary to uremia due to missing dialysis treatment. (2) Uremia Is this a current diagnosis for this admission?: Yes Plan: We did dialysis today for 3 last hours, using the patient's left AV fistula, with 2 potassium bath, blood flow rate of 450 mL per minute, dialysate flow rate of 800 mL per minute, ultrafiltration 4-4.5 L as tolerated, no heparin and no Procrit. Patient tolerated dialysis well. Mental status back to baseline during dialysis. (3) ESRD (end stage renal disease) on dialysis Is this a current diagnosis for this admission?: Yes Plan: As above. (4) Hyperkalemia Is this a current diagnosis for this admission?: Yes (5) Metabolic acidosis Is this a current diagnosis for this admission?: Yes (6) Anemia in chronic kidney disease Is this a current diagnosis for this admission?: Yes (7) COPD (chronic obstructive pulmonary disease) Is this a current diagnosis for this admission?: Yes (8) Diabetes mellitus type 2 in obese Is this a current diagnosis for this admission?: Yes - Notes Notes: Thank you very much for this consultation. From nephrology standpoint I think he can be discharged home tomorrow if he remains to be stable without any other issues. Patient advised not to miss dialysis anymore and to follow his dialysis schedule as an outpatient. - Time Time Spent: 50 to 70 Minutes
[2018-08-29] MEDS ORDERED: FAMOTIDINE INJ/PF 20 MG/2 ML SDV IV SCH ×2 (22:00)
[2018-08-29] MEDS ORDERED: INSULIN REG, HUMAN 100 UNIT/ML 3 ML VIAL (PYX) ONE (22:16)
[2018-08-29] MEDS: INSULIN LISPRO 100 UNIT/ML 3 ML VIAL SUBCUT SCH (22:21)
[2018-08-29] MEDS ORDERED: INSULIN REG, HUMAN 100 UNIT/ML 3 ML VIAL SUBCUT ONE (23:00)
[2018-08-30] MEDS: IPRATROPIUM/ALBUTEROL 0.5-2.5 MG/3 ML AMPUL NEB SCH ×2 (00:13→07:55)
--- NOTE | 2018-08-30 00:24 | EKG REPORT ---
SEVERITY:- NORMAL ECG - SINUS RHYTHM : Confirmed by: Charmiane Ryan MD 30-Aug-2018 00:23:41
[2018-08-30] MEDS: HEPARIN SOD (PORCINE) 5,000 UNIT/ML 1 ML SYRINGE SUBCUT SCH (05:23)
[2018-08-30 05:51] LABS: HEMATOCRIT 38.6 % (37.9-51.0); HEMOGLOBIN 13.3 g/dL (13.5-17.0); MEAN CORPUSCULAR HEMOGLOBIN 33.3 pg (27.0-33.4); MEAN CORPUSCULAR HGB CONC 34.5 g/dL (32.0-36.0); MEAN CORPUSCULAR VOLUME 97 fl (80-97); PLATELET COUNT 248 10^3/uL (150-450); WHITE BLOOD COUNT 9.2 10^3/uL (4.0-10.5)
[2018-08-30 05:57] LABS: CALCIUM 8.5 mg/dL (8.4-10.2); GLUCOSE 121 mg/dL (75-110); POTASSIUM 5.5 mmol/L (3.6-5.0)
[2018-08-30 06:13] LABS: CARBON DIOXIDE 25 mmol/L (22-30); CHLORIDE 96 mmol/L (98-107); SODIUM 138.6 mmol/L (137-145)
[2018-08-30 06:15] LABS: ANION GAP 18 (5-19); BLOOD UREA NITROGEN 53 mg/dL (7-20)
[2018-08-30] MEDS: INSULIN LISPRO 100 UNIT/ML 3 ML VIAL SUBCUT SCH (07:59)
[2018-08-30] MEDS ORDERED: DOCUSATE SODIUM 100 MG CAPSULE PO SCH (10:00)
[2018-08-30] MEDS ORDERED: PREDNISONE 20 MG TABLET PO SCH (10:00)
[2018-08-30 12:53] VITALS: BP 126/71
--- NOTE | 2018-09-01 13:47 | PDOC DISCHARGE SUMMARY ---
General - Admit/Disc Date/PCP Admission Date/Primary Care Provider: 08/29/18 11:03 CHERRI RETANA, Discharge Date: 08/30/18 - Discharge Diagnosis (1) Uremia Is this a current diagnosis for this admission?: Yes Summary: Resolved; secondary to missed dialysis appointment. The patient was admitted to the medical floor on continuous cardiac telemetry. Nephrology was consulted; have made arrangements for the patient to receive dialysis on day of admission. The following morning, the patient has returned to his baseline mental status and reported he was no longer having difficulty with nausea. Tolerated his full diet this morning and is requesting to be discharged home. Patient is educated on the importance of not missing his dialysis appointments; should he feel unwell on his dialysis day, he should contact the dialysis center for instructions/alternate dialysis arrangements. He is discharged home in stable condition. He is instructed to attend his normally scheduled dialysis appointment tomorrow, follow-up with his primary care provider within 1 week, and with Dr. Waller as scheduled. He is encouraged to return emergency department as needed for concerning sympto ms. (2) COPD exacerbation Is this a current diagnosis for this admission?: Yes Summary: Improved. Patient was admitted with a mild COPD exacerbation; patient was maintaining oxygen saturations on room air though with mild tachycardia (HR 104), and adventitious lung sounds (rhonchi and wheezing). He was supported with supplemental oxygen, scheduled and as needed nebulizer treatments, and Mucinex twice daily. He was provided a one-time dose of Solu- Medrol 125 mg and then placed on prednisone 60 mg p.o. the following morning. The patient reports his breathing is much improved on day of discharge. He is discharged with a prescription for prednisone, NicoDerm patches, and duo nebs. (3) ESRD (end stage renal disease) on dialysis Is this a current diagnosis for this admission?: Yes Summary: The patient received dialysis session on day of admission. Nephrology was consulted; have approved his discharge to home with continued Monday, Monday, Monday dialysis schedule. (4) Tobacco dependency Is this a current diagnosis for this admission?: Yes Summary: Smoking cessation was strongly encouraged; nicotine or placement therapies were provided. (5) Benzodiazepine dependence Is this a current diagnosis for this admission?: Yes Summary: Verified with [place] controlled substance database; patient is prescribed Valium 10 mg twice daily. We will continue home dose to prevent withdrawal symptoms. (6) Chronic pain Is this a current diagnosis for this admission?: Yes Summary: Patient reports chronic pain; previously was prescribed Percocet. Review of the [place] controlled substance database shows that his last prescription was filled in February. Will provide as needed Tylenol and oxycodone 5/325 as needed for pain. He was NOT provided a prescription for oxycodone at discharge. (7) Diabetes Is this a current diagnosis for this admission?: Yes Summary: While admitted, the patient was placed on a consistent carb/dialysis diet with Accu-Cheks before meals and at bedtime with Humalog for sliding scale coverage. Patient is instructed to resume his home medication regimen at discharge. - Additional Information Resuscitation Status: Full Code Discharge Diet: Cardiac Discharge Activity: Activity As Tolerated Prescriptions: Docusate Sodium [Colace 100 mg Capsule] 100 mg PO DAILY #30 capsule Ipratropium/Albuterol Sulfate [Duoneb 3 ml Ampul] 3 ml NEB RTQ6HP PRN #120 vial.neb PRN Reason: Nicotine [Nicoderm 21 mg/24 Hr Transderm Patch] 1 patch TD DAILY #30 patch.td24 Prednisone [Deltasone 20 mg Tablet] 20 mg PO DAILY #15 tablet Home Medications: Ipratropium/Albuterol Sulfate [Duoneb 3 ml Ampul] 3 ml NEB RTQ6HP PRN #120 vial.neb 08/29/18 Nicotine [Nicoderm 21 mg/24 Hr Transderm Patch] 1 patch TD DAILY #30 patch.td24 08/29/18 Prednisone [Deltasone 20 mg Tablet] 20 mg PO DAILY #15 tablet 08/29/18 Acetaminophen [Tylenol 325 mg Tablet] 650 mg PO Q4HP PRN tablet 08/30/18 Diazepam [Valium 5 mg Tablet] 10 mg PO Q12HP PRN tablet 08/30/18 Docusate Sodium [Colace 100 mg Capsule] 100 mg PO DAILY #30 capsule 08/30/18 Oxycodone HCl/Acetaminophen [Percocet 5-325 mg Tablet] 1 tab PO Q6HP PRN tablet 08/30/18 History of Present Illness History of Present Illness: GET BURGESS is a 63 year old male with a past medical history significant for end- stage renal disease on dialysis, insulin-dependent diabetes mellitus, COPD, benzodiazepine dependence with continuous use and tobacco dependence with continuous use who presented to the emergency department today from dialysis pr ior to starting his session for report of lethargy and slurred speech. The ED provider noted that the patient was A&O x4 but with delayed speech and otherwise unremarkable neuro exam. Evaluation revealed baseline anemia, minimally elevated potassium (5.3), elevated creatinine and BUN from baseline (of note, patient missed dialysis session on Monday), normal chest x-ray and benign head CT. At the time of my exam, the patient was now fully alert, oriented, and without lethargy or slurred speech. He tells me that he took valium (10 mg) approximately 1 hour prior to his dialysis session for his chronic discomfort. Otherwise, the patient reports slight shortness of breath, which he also notes to be his baseline, and diarrhea illness earlier this week at which has subsequently resolved. He does report continued poor appetite, but is tolerating p.o. fluids. Discussed with Dr. Waller option for discharging patient from the ED directly to dialysis. Dr. Waller felt this would be appropriate. Unfortunately, upon returning to the patient's room and found him to be vomiting. Therefore, he is admitted overnight for observation and management uremia secondary to missed dialysis session. Physical Exam Vital Signs: Temp Pulse Resp BP Pulse Ox 97.3 F 82 18 120/74 96 08/30/18 11:48 08/30/18 11:48 08/30/18 11:48 08/30/18 11:48 08/30/18 11:48 General appearance: PRESENT: no acute distress, obese, well-developed, well- nourished Head exam: PRESENT: atraumatic, normocephalic Eye exam: PRESENT: conjunctiva pink, EOMI, PERRLA. ABSENT: scleral icterus Ear exam: PRESENT: normal external ear exam Mouth exam: PRESENT: moist, tongue midline Neck exam: ABSENT: carotid bruit, JVD, lymphadenopathy, thyromegaly Respiratory exam: PRESENT: prolonged expiratory phas, rhonchi, symmetrical, unlabored. ABSENT: rales, wheezes Cardiovascular exam: PRESENT: RRR, +S1, +S2. ABSENT: diastolic murmur, rubs, systolic murmur Pulses: PRESENT: normal dorsalis pedis pul Vascular exam: PRESENT: normal capillary refill GI/Abdominal exam: PRESENT: normal bowel sounds, soft. ABSENT: distended, guarding, mass, organolmegaly, rebound, tenderness Rectal exam: PRESENT: deferred Extremities exam: PRESENT: full ROM. ABSENT: calf tenderness, clubbing, pedal edema Neurological exam: PRESENT: alert, awake, oriented to person, oriented to place, oriented to time, oriented to situation, CN II-XII grossly intact. ABSENT: motor sensory deficit Psychiatric exam: PRESENT: appropriate affect, normal mood. ABSENT: homicidal ideation, suicidal ideation Skin exam: PRESENT: dry, intact, warm. ABSENT: cyanosis, rash Results Laboratory Results: 08/30/18 04:53 08/30/18 04:53 08/29/18 08/29/18 07:25 07:25 Creatine Kinase 93 CK-MB (CK-2) 1.20 Troponin I < 0.012 Impressions: Head CT 08/29/18 08:30 IMPRESSION: NO ACUTE INTRACRANIAL IMAGING FINDINGS. EVIDENCE OF ACUTE STROKE: NO. Chest X-Ray 08/29/18 08:35 IMPRESSION: Cardiomegaly without acute abnormality of the lungs in AP projection. Qualifiers - * PATIENT BEING DISCHARGED WITH ANY OF THE FOLLOWING DIAGNOSIS: No Plan Discharge Plan: The patient is discharged home with home health nursing. He is instructed to follow-up tomorrow for dialysis. He is encouraged to stop smoking. He is recommended to follow-up with his primary care provider within [address] Waller as scheduled. He is advised to return to the emergency department as needed for concerning symptoms. Time Spent: Less than 30 Minutes
== END 2018-08-30 12:54 | disposition home or self-care (01) ==
LOC: ER 07:34 → EH 11:03 → INTOOBSV 11:03 → EH 14:41 → 4N 21:30
PROVIDERS: ADMIT Internal Medicine; ATTEND Internal Medicine
PROC: HZ31ZZZ Individual Counseling for Substance Abuse Treatment, Behavioral (ICD-10-PCS; principal; 2018-08-29)
PROC: 5A1D70Z Performance of Urinary Filtration, Intermittent, Less than 6 Hours Per Day (ICD-10-PCS; 2018-08-29)
DX: E10.22 Type 1 diabetes mellitus with diabetic chronic kidney disease (principal); N18.6 End stage renal disease; Z99.2 Dependence on renal dialysis; J44.1 Chronic obstructive pulmonary disease with (acute) exacerbation; R00.0 Tachycardia, unspecified; D63.1 Anemia in chronic kidney disease; G89.29 Other chronic pain; F17.200 Nicotine dependence, unspecified, uncomplicated; F13.20 Sedative, hypnotic or anxiolytic dependence, uncomplicated; E66.9 Obesity, unspecified; R47.81 Slurred speech; I95.9 Hypotension, unspecified; I25.10 Atherosclerotic heart disease of native coronary artery without angina pectoris; G93.40 Encephalopathy, unspecified; R63.0 Anorexia; M54.9 Dorsalgia, unspecified; R11.2 Nausea with vomiting, unspecified; Z79.4 Long term (current) use of insulin
CPT/HCPCS: 93005; 99285; 36415 ×2; 82553; 82962 ×2; 82550; 85025; 85027; 85610; 80048; 80053; 84484; 82803; 71045; 70450; 93010; 94640 ×2; 99406; G0257; J1644 ×2; J1815 ×2; J2930; J7512; J2550; J3490 ×2; S0028; J7620 ×2

== ENCOUNTER 2018-10-12 20:23 | Inpatient (IN) | payer OTHER, MEDICAID ==
[2018-10-12] MEDS ORDERED: OXYCODONE-ACETAMINOPHEN 5-325 MG TABLET PO ONE (22:34)
--- NOTE | 2018-10-12 22:36 | ER Document Report ---
ED Medical Screen (RME) - General Chief Complaint: Shoulder Pain Stated Complaint: SHOULDER AND NECK PAIN Time Seen by Provider: 10/12/18 22:33 Primary Care Provider: CHERRI RETANA DO [Primary Care Provider] - Follow up as needed Notes: 63-year-old male chief complaint of right shoulder, right upper arm pain, and some intermittent pains in his chest since this morning. Pain is much worse when he tries to move his right arm/shoulder. Denies fever, cough, injury. He is a dialysis patient, had dialysis this morning. TRAVEL OUTSIDE OF THE [place] IN LAST 30 DAYS: No - Related Data Allergies/Adverse Reactions: No Known Allergies Allergy (Verified 08/29/18 07:52) Past Medical History - Past Medical History Cardiac Medical History: Reports: Hx Coronary Artery Disease - CHOLESTEROL, Hx Heart Attack, Hx Hypercholesterolemia, Hx Hypertension Denies: Hx DVT, Hx Pulmonary Embolism Pulmonary Medical History: Reports: Hx Asthma, Hx COPD, Hx Pneumonia Denies: Hx Bronchitis Neurological Medical History: Reports: Hx Cerebrovascular Accident, Hx Seizures - History of seizure when renal failure discovered; never on antiepileptic Endocrine Medical History: Reports: Hx Diabetes Mellitus Type 1, Hx Diabetes Mellitus Type 2. Denies: Hx Hyperthyroidism, Hx Hypothyroidism Renal/ Medical History: Reports: Hx End Stage Renal Disease, Hx Hemodialysis. Denies: Hx Peritoneal Dialysis GI Medical History: Reports: Hx Gastroesophageal Reflux Disease. Denies: Hx Cirrhosis, Hx Hepatitis Musculoskeltal Medical History: Reports Hx Arthritis Psychiatric Medical History: Reports: Hx Depression Infectious Medical History: Denies: Hx Hepatitis Past Surgical History: Reports: Hx Orthopedic Surgery, Hx Tonsillectomy, Hx Vascular Surgery - fistula left arm, Other - Peritoneal dialysis catheter placement - Immunizations Immunizations up to date: Yes Hx Diphtheria, Pertussis, Tetanus Vaccination: - UNSURE History of Influenza Vaccine for 04/2017 - 09/2017 Season: Yes Physical Exam - Vital signs Vitals: Temp Pulse Resp BP Pulse Ox 98.7 F 92 25 H 146/76 H 94 10/12/18 20:39 10/12/18 20:39 10/12/18 20:39 10/12/18 20:39 10/12/18 20:39 - General General appearance: Other - Patient hunched over in the wheelchair, neck is bent in flexion - Back Back: Other - Pain over the right paracervical and right trapezius muscles with wincing Course - Re-evaluation Re-evalutation: Appears to be muscle strain/spasm in the right shoulder, paracervical muscle, trapezius. Also complaining of intermittent pain in his chest, most likely musculoskeletal. Asking for something for pain. Work-up pending. I have greeted and performed a rapid initial assessment of this patient. A comprehensive ED assessment and evaluation of the patient, analysis of test results and completion of the medical decision making process will be conducted by additional ED providers. - Vital Signs Vital signs: Temp Pulse Resp BP Pulse Ox 98.7 F 92 25 H 146/76 H 94 10/12/18 20:39 10/12/18 20:39 10/12/18 20:39 10/12/18 20:39 10/12/18 20:39 Doctor's Discharge - Discharge Referrals: CHERRI RETANA DO [Primary Care Provider] - Follow up as needed
--- NOTE | 2018-10-12 23:05 | RADIOLOGY REPORT (SQ) ---
EXAM DESCRIPTION: XR CHEST 1 VIEW COMPLETED DATE/TME: 10/12/2018 22:33 CLINICAL HISTORY: 63 years Male, chest pain COMPARISON:Aug 29 2018 NUMBER OF VIEWS/TECHNIQUE: 1/AP FINDINGS: Adequate lung volume, clear parenchyma, normal cardiac silhouette, and intact bony thorax. Atherosclerotic vascular disease. IMPRESSION: No acute cardiopulmonary findings.
--- NOTE | 2018-10-12 23:07 | RADIOLOGY REPORT (SQ) ---
EXAM DESCRIPTION: XR SHOULDER 2 OR MORE VIEWS COMPLETED DATE/TME: 10/12/2018 22:33 CLINICAL HISTORY: 63 years Male, right shoulder pain COMPARISON:Jan 26 2015 Findings: Mild osteoarthritis. Small calcification suggestive of mild calcific tendinitis of the rotatory cuff. Atherosclerotic vascular disease. Bones, joints, and soft tissues of the RIGHT XR SHOULDER 2 OR MORE VIEWS appear otherwise unremarkable. IMPRESSION: No acute findings.
[2018-10-12 23:24] LABS: ABSOLUTE EOSINOPHILS # (AUTO) 0.1 10^3/uL (0.0-0.6); ABSOLUTE MONOCYTES (AUTO) 1.4 10^3/uL (0.1-1.4); ABSOLUTE NEUT (AUTO) 8.4 10^3/uL (1.7-8.2); BASOPHILS % (AUTO) 0.3 % (0-2); EOSINOPHILS % (AUTO) 0.7 % (0-6); HEMATOCRIT 37.9 % (37.9-51.0); HEMOGLOBIN 13.3 g/dL (13.5-17.0); MEAN CORPUSCULAR HEMOGLOBIN 33.6 pg (27.0-33.4); MEAN CORPUSCULAR HGB CONC 35.2 g/dL (32.0-36.0); MEAN CORPUSCULAR VOLUME 95 fl (80-97); MONOCYTES % (AUTO) 11.4 % (3-13); PLATELET COUNT 251 10^3/uL (150-450); RED BLOOD COUNT 3.98 10^6/uL (4.35-5.55); RED CELL DISTRIBUTION WIDTH 14.3 % (11.5-14.0); SEGMENTED NEUTROPHILS % (AUTO) 70.6 % (42-78); TOTAL CELLS COUNTED % (AUTO) 100 %; WHITE BLOOD COUNT 11.9 10^3/uL (4.0-10.5)
[2018-10-12 23:40] LABS: ANION GAP 19 (5-19); BLOOD UREA NITROGEN 27 mg/dL (7-20); CALCIUM 8.5 mg/dL (8.4-10.2); CARBON DIOXIDE 24 mmol/L (22-30); CHLORIDE 98 mmol/L (98-107); GLUCOSE 103 mg/dL (75-110); POTASSIUM 3.8 mmol/L (3.6-5.0); SODIUM 140.9 mmol/L (137-145)
[2018-10-13] MEDS ORDERED: HYDROMORPHONE HCL INJ/PF 2 MG/ML AMPULE IM ONE ×2 (00:03→03:09)
--- NOTE | 2018-10-13 00:08 | ER Document Report ---
ED General - General Chief Complaint: Shoulder Pain Stated Complaint: SHOULDER AND NECK PAIN Time Seen by Provider: 10/12/18 22:33 Notes: Patient is a 63-year-old male dialysis patient presents with complaint of sudden onset severe right shoulder pain while he was in dialysis. Since then he has been unable to move his shoulder and says it is very painful every time he tries to move his shoulder do anything with it. No fevers. No vomiting. No diarrhea. No recent injury or trauma. Patient's fistulas in the left arm. No weakness or numbness into the right hand. Patient denies this ever happening before. He does have a history of muscle spasms for which he takes Valium but says this feels different and that it feels like the pain is in the joint itself and not in the muscles. He said he did take his Valium and had no effect on his pain. He also took oxycodone which had no effect on his pain. No other complaints at this time. TRAVEL OUTSIDE OF THE [place] IN LAST 30 DAYS: No - Related Data Allergies/Adverse Reactions: No Known Allergies Allergy (Verified 08/29/18 07:52) Past Medical History - Social History Smoking Status: Unknown if Ever Smoked Chew tobacco use (# tins/day): No Frequency of alcohol use: None Drug Abuse: None Family History: Reviewed & Not Pertinent Patient has suicidal ideation: No Patient has homicidal ideation: No - Past Medical History Cardiac Medical History: Reports: Hx Coronary Artery Disease - CHOLESTEROL, Hx Heart Attack, Hx Hypercholesterolemia, Hx Hypertension Denies: Hx DVT, Hx Pulmonary Embolism Pulmonary Medical History: Reports: Hx Asthma, Hx COPD, Hx Pneumonia Denies: Hx Bronchitis Neurological Medical History: Reports: Hx Cerebrovascular Accident, Hx Seizures - History of seizure when renal failure discovered; never on antiepileptic Endocrine Medical History: Reports: Hx Diabetes Mellitus Type 1, Hx Diabetes Mellitus Type 2. Denies: Hx Hyperthyroidism, Hx Hypothyroidism Renal/ Medical History: Reports: Hx End Stage Renal Disease, Hx Hemodialysis. Denies: Hx Peritoneal Dialysis GI Medical History: Reports: Hx Gastroesophageal Reflux Disease. Denies: Hx Cirrhosis, Hx Hepatitis Musculoskeletal Medical History: Reports Hx Arthritis Psychiatric Medical History: Reports: Hx Depression Infectious Medical History: Denies: Hx Hepatitis Past Surgical History: Reports: Hx Orthopedic Surgery, Hx Tonsillectomy, Hx Vasc ular Surgery - fistula left arm, Other - Peritoneal dialysis catheter placement - Immunizations Immunizations up to date: Yes Hx Diphtheria, Pertussis, Tetanus Vaccination: - UNSURE Review of Systems - Review of Systems Notes: My Normal Review Basic REVIEW OF SYSTEMS: CONSTITUTIONAL : Denies fever, chills, or sweats. Denies recent illness. EENT: Denies eye, ear, throat, or mouth pain or symptoms. Denies nasal or sinus congestion. CARDIOVASCULAR: Pain is towards right shoulder. No pain into left chest. RESPIRATORY: Denies cough, cold, or chest congestion. Denies shortness of breath, difficulty breathing, or wheezing. GASTROINTESTINAL: Denies abdominal pain. Denies nausea, vomiting, or diarrhea. MUSCULOSKELETAL: Right shoulder pain SKIN: Denies rash or skin lesions. NEUROLOGICAL: Denies altered mental status or loss of consciousness. Denies headache. Denies weakness or paralysis or loss of use of either side. Denies problems with gait or speech. Denies sensory or motor loss. ALL OTHER SYSTEMS REVIEWED AND NEGATIVE. Physical Exam - Vital signs Vitals: Temp Pulse Resp BP Pulse Ox 98.7 F 92 25 H 146/76 H 94 10/12/18 20:39 10/12/18 20:39 10/12/18 20:39 10/12/18 20:39 10/12/18 20:39 - Notes Notes: General Appearance: Well nourished, alert, cooperative, no acute distress, moderate obvious discomfort. Vitals: reviewed, See vital signs table. Eyes: PERRL, EOMI, Conjuctiva clear Mouth: No decreasd moisture Neck: Supple, no neck tenderness Lungs: No wheezing, No rales, No rhonci, No accessory muscle use, good air exchange bilaterally. Heart: Normal rate, Regular rythm, No murmur, no rub Abdomen: Normal BS, soft, No rigidity, No abdominal tenderness, No guarding, no rebound, no abdominal masses Extremities: Patient has good pulses and distal sensation in the right upper extremity. He has no pain to palpation over the biceps or triceps muscle or or elbow or distal extremity. Patient's right shoulder is not red hot or swollen however it is very tender with any palpation over the shoulder itself. Any attempt of moving the shoulder is causes extreme pain. No pain in his trapezius muscle. No pain to the neck or back. Fistula left upper extremity. Skin: warm, dry, appropriate color, no rash Neuro: speech clear, oriented x 3, normal affect, responds appropriately to questions. Distal sensation intact. Course - Re-evaluation Re-evalutation: 10/13/18 03:10 Patient is having some improvement in pain since receiving the Dilaudid. He still has almost no mobility of the right shoulder. I will give him a sling as this will help relax his arm against his body likely will keep him more of a position of comfort. My concern is that being the patient has no mobility had sudden onset pain without trauma or injury or history of pain to the shoulder before and is a dialysis patient that this could indicate that he could be getting infection to the joint or septic joint. Does have a leukocytosis and elevated ESR however the leukocytosis is mild. I did discuss case with her orthopedic surgeon, Dr. Murphy, who agrees to evaluate the patient. He does recommend an MRI. Patient does have some stents placed the past. We will have to wait until we can do MRI screening in the morning to see if he is able to get MRI. Dr. Murphy agrees to evaluate the patient this morning as well. I informed the patient the plan he is agreeable to it. Dictation of this chart was performed using voice recognition software; th erefore, there may be some unintended grammatical errors. - Vital Signs Vital signs: Temp Pulse Resp BP Pulse Ox 97.6 F 82 20 128/77 H 95 10/13/18 19:30 10/13/18 19:30 10/13/18 19:30 10/13/18 19:30 10/13/18 19:30 - Laboratory Result Diagrams: 10/13/18 12:21 10/13/18 12:21 Laboratory results interpreted by me: 10/12/18 10/12/18 10/12/18 22:55 22:55 22:55 WBC 11.9 H RBC 3.98 L Hgb 13.3 L MCH 33.6 H RDW 14.3 H Absolute Neutrophils 8.4 H ESR 71 H BUN 27 H Creatinine 5.86 H Est GFR ( Amer) 12 L Est GFR (Non-Af Amer) 10 L C-Reactive Protein 10/12/18 22:55 WBC RBC Hgb MCH RDW Absolute Neutrophils ESR BUN Creatinine Est GFR ( Amer) Est GFR (Non-Af Amer) C-Reactive Protein 57.1 H - EKG Interpretation by Me Additional EKG results interpreted by me: 10/13/18 00:07 EKG is reviewed and interpreted by me. EKG shows sinus rhythm with a rate of [address] segment elevation or depression. No ischemic T wave inversions. HI interval, QRS duration, QT intervals are within normal range. Old EKG for comparison is from September 04 2018. Discharge - Discharge Clinical Impression: Possible septic joint Right shoulder pain Qualifiers: Chronicity: acute Qualified Code(s): M25.511 - Pain in right shoulder Condition: Stable Disposition: ADMITTED INPATIENT
--- NOTE | 2018-10-13 02:30 | RADIOLOGY REPORT (SQ) ---
EXAM DESCRIPTION: CT UPPER EXTREMITY WITHOUT IV CONTRAST COMPLETED DATE/TME: 10/13/2018 00:03 CLINICAL HISTORY: Pain. 63 years Male, severe right shoulder pain during dialysis COMPARISON: Same day. Technique: No IV contrast. Coronal and sagittal reformat. This exam was performed according to our departmental dose-optimization program, which includes automated exposure control, adjustment of the mA and/or kV according to patient size and/or use of iterative reconstruction technique. [facility]: Dose Right [facility]: CareDose [facility]: Dose Right [facility]: Teradose 4D [facility]: Smart [employer] LIMITATIONS: None Findings: Small chronic fragmented osteophytes/enthesophytes of the right shoulder joint. Atherosclerotic vascular disease. Osteoarthritis. Bones, joints, and soft tissues of the CT RIGHT UPPER EXTREMITY WITHOUT IV CONTRAST appear otherwise intact. IMPRESSION: No acute findings.
--- NOTE | 2018-10-13 09:19 | RADIOLOGY REPORT (SQ) ---
EXAM DESCRIPTION: MRI RT UPPER EXTREMITY WITHOUT COMPLETED DATE/TIME: 10/13/2018 8:51 am REASON FOR STUDY: right shoulder pain sudden onset during dialysis, no known injury COMPARISON: CT right shoulder 10/13/2018 TECHNIQUE: Right shoulder images acquired and stored on PACS. Multiplanar imaging to include fat sen sitive sequences such as T1, water sensitive sequences such as FST2/STIR, cartilage sensitive sequenc es such as FSPD/gradient-echo sequences. LIMITATIONS: None. FINDINGS: BONE MARROW AND CORTEX: No worrisome bone lesions or marrow replacement. No occult fractur es. JOINT OR BURSAL EFFUSION: There is no significant glenohumeral joint effusion. However, there is a m oderate amount of fluid throughout the subacromial/subdeltoid bursa tracking down along the superfici al and deep aspect of the biceps muscle. Intra-articular long head biceps tendon is not seen. Suspe ct rupture of the long head biceps tendon at its superior glenoid attachment. This finding was discu ssed with the emergency room attending physician GLENO-HUMERAL ARTICULATION: Normal articulation. No subluxation. No cystic change. No osteophytes or cartilage loss. ACROMION AND AC JOINT: Type 1 acromion with fluid in the AC joint and mild AC joint separation on sa gittal image 16. ROTATOR CUFF AND INTERVAL: Very mild tendinopathy of the distal supra and infraspinatus tendons on co elisa images 8-13. Subscapularis intact. There is fluid along the rotator interval from intra-artic ular long head biceps tear LABRUM AND BICEPS LABRAL COMPLEX: Intra-articular long head biceps tendon tear. Short head biceps t endon is intact. Superior labral tear extending anteriorly and posteriorly. REMAINDER OF LABRUM AND IGHL : No gross tear or paralabral cyst formation. Labral evaluation is less than optimal without joint distention. No thickening of IGHL to suggest adhesive capsulitis. PERIARTICULAR AND ADJACENT SOFT TISSUES: No masses or abnormal nodes. OTHER: No other significant finding. IMPRESSION: Ruptured long head biceps tendon attachment with superior labral tear. Fluid throughout the subacromial/subdeltoid bursa. Fluid in the AC joint, question AC separation Mild tendinopathy distal supra and infraspinatus tendons Report called to emergency room attending physician TECHNICAL DOCUMENTATION: JOB ID: [id number] [employer]- All Rights Reserved Reading location - IP/workstation name: [email or web address]
--- NOTE | 2018-10-13 09:37 | PDOC CONSULTATION ---
History of Present Illness Admission Date/PCP: CHERRI RETANA DO Patient complains of: Right shoulder discomfort History of Present Illness: GET BURGESS is a 63 year old male history of renal dialysis presents emergency room with pain in his right shoulder. Denies specific injury but noticed overnight the pain worsened and he was unable to use his arm or even limited activities. Denied fever chills or sweats. Pain worse with attempted motion. Pain 10/10 with attempted motion. Denies history of gout. Denies recent infection. Past Medical History Cardiac Medical History: Reports: Coronary Artery Disease - CHOLESTEROL, Myocardial Infarction, Hyperlipidema, Hypertension Denies: DVT, Pulmonary Embolism Pulmonary Medical History: Reports: Asthma, Chronic Obstructive Pulmonary Disease (COPD), Pneumonia Denies: Bronchitis Neurological Medical History: Reports: Seizures - History of seizure when renal failure discovered; never on antiepileptic Endocrine Medical History: Reports: Diabetes Mellitus Type 1, Diabetes Mellitus Type 2 Denies: Hyperthyroidism, Hypothyroidism Renal/ Medical History: Reports: End Stage Renal Disease GI Medical History: Reports: Gastroesophageal Reflux Disease Denies: Cirrhosis, Hepatitis Musculoskeltal Medical History: Reports: Arthritis Psychiatric Medical History: Reports: Depression Hematology: Reports: Anemia Past Surgical History Past Surgical History: Reports: Orthopedic Surgery, Tonsillectomy, Vascular Surgery - fistula left arm, Other - Peritoneal dialysis catheter placement Social History Smoking Status: Unknown if Ever Smoked Frequency of Alcohol Use: None Hx Recreational Drug Use: No Drugs: None Hx Prescription Drug Abuse: No Family History Family History: Reviewed & Not Pertinent Parental Family History Reviewed: No Children Family History Reviewed: No Sibling(s) Family History Reviewed.: No Medication/Allergy Home Medications: Ipratropium/Albuterol Sulfate [Duoneb 3 ml Ampul] 3 ml [facility] RTQ6HP PRN #120 [email or web address] 08/29/18 Nicotine [Nicoderm 21 mg/24 Hr Transderm Patch] 1 patch TD DAILY #30 patch.td24 08/29/18 Prednisone [Deltasone 20 mg Tablet] 20 mg PO DAILY #15 tablet 08/29/18 Acetaminophen [Tylenol 325 mg Tablet] 650 mg PO Q4HP PRN tablet 08/30/18 Diazepam [Valium 5 mg Tablet] 10 mg PO Q12HP PRN tablet 08/30/18 Docusate Sodium [Colace 100 mg Capsule] 100 mg PO DAILY #30 capsule 08/30/18 Oxycodone HCl/Acetaminophen [Percocet 5-325 mg Tablet] 1 tab PO Q6HP PRN tablet 08/30/18 Allergies/Adverse Reactions: No Known Allergies Allergy (Verified 08/29/18 07:52) Review of Systems Constitutional: ABSENT: chills, fever(s), headache(s), weight gain, weight loss Eyes: ABSENT: visual disturbances Ears: ABSENT: hearing changes Cardiovascular: ABSENT: chest pain, dyspnea on exertion, edema, orthropnea, palpitations Respiratory: ABSENT: cough, hemoptysis Gastrointestinal: ABSENT: abdominal pain, constipation, diarrhea, hematemesis, hematochezia, nausea, vomiting Genitourinary: PRESENT: as per HPI. ABSENT: dysuria, hematuria Musculoskeletal: PRESENT: as per HPI Integumentary: ABSENT: rash, wounds Neurological: ABSENT: abnormal gait, abnormal speech, confusion, dizziness, focal weakness, syncope Psychiatric: ABSENT: anxiety, depression, homidical ideation, suicidal ideation Endocrine: ABSENT: cold intolerance, heat intolerance, menstrual abnormalities, polydipsia, polyuria Hematologic/Lymphatic: ABSENT: easy bleeding, easy bruising, lymphadenopathy Physical Exam Vital Signs: Temp Pulse Resp BP Pulse Ox 98.7 F 92 12 130/92 H 95 10/13/18 05:45 10/12/18 20:39 10/13/18 09:15 10/13/18 09:15 10/13/18 09:15 Intake & Output 10/12/18 10/13/18 10/14/18 06:59 06:59 06:59 Weight 96.6 kg General appearance: PRESENT: no acute distress, well-developed, well-nourished Head exam: PRESENT: atraumatic, normocephalic Eye exam: PRESENT: conjunctiva pink, EOMI, PERRLA. ABSENT: scleral icterus Ear exam: PRESENT: normal external ear exam Mouth exam: PRESENT: moist, tongue midline Neck exam: PRESENT: full ROM. ABSENT: carotid bruit, JVD, lymphadenopathy, thyromegaly Respiratory exam: PRESENT: unlabored Cardiovascular exam: PRESENT: RRR. ABSENT: diastolic murmur, rubs, systolic murmur Pulses: PRESENT: normal dorsalis pedis pul, +2 pedal pulses bilateral Vascular exam: PRESENT: normal capillary refill GI/Abdominal exam: PRESENT: normal bowel sounds, soft. ABSENT: distended, guarding, mass, organolmegaly, rebound, tenderness Rectal exam: PRESENT: deferred Musculoskeletal exam: PRESENT: other - Right shoulder: No significant swelling. No evidence of increased warmth or erythema. Minimal pain with passive flexion/abduction/external rotation. Pain with range of motion greater than 90 degrees. Exquisite tenderness along the AC joint and anteriorly. No evidence of open wound. Neurological exam: PRESENT: alert, awake, oriented to person, oriented to place, oriented to time, oriented to situation, CN II-XII grossly intact. ABSENT: motor sensory deficit Psychiatric exam: PRESENT: appropriate affect, normal mood. ABSENT: homicidal ideation, suicidal ideation Skin exam: PRESENT: dry, intact, warm. ABSENT: cyanosis, rash Results Laboratory Results: 10/12/18 22:55 10/12/18 22:55 10/12/18 10/12/18 10/12/18 22:55 22:55 22:55 WBC 11.9 H RBC 3.98 L Hgb 13.3 L Hct 37.9 MCV 95 MCH 33.6 H MCHC 35.2 RDW 14.3 H Plt Count 251 Seg Neutrophils % 70.6 Lymphocytes % 17.0 Monocytes % 11.4 Eosinophils % 0.7 Basophils % 0.3 Absolute Neutrophils 8.4 H Absolute Lymphocytes 2.0 Absolute Monocytes 1.4 Absolute Eosinophils 0.1 Absolute Basophils 0.0 Sodium 140.9 Potassium 3.8 Chloride 98 Carbon Dioxide 24 Anion Gap 19 BUN 27 H Creatinine 5.86 H Est GFR ( Amer) 12 L Est GFR (Non-Af Amer) 10 L Glucose 103 Uric Acid 4.3 Calcium 8.5 C-Reactive Protein 10/12/18 22:55 WBC RBC Hgb Hct MCV MCH MCHC RDW Plt Count Seg Neutrophils % Lymphocytes % Monocytes % Eosinophils % Basophils % Absolute Neutrophils Absolute Lymphocytes Absolute Monocytes Absolute Eosinophils Absolute Basophils Sodium Potassium Chloride Carbon Dioxide Anion Gap BUN Creatinine Est GFR ( Amer) Est GFR (Non-Af Amer) Glucose Uric Acid Calcium C-Reactive Protein 57.1 H 10/12/18 22:55 Troponin I < 0.012 Impressions: Chest X-Ray 10/12/18 22:33 IMPRESSION: No acute cardiopulmonary findings. Shoulder X-Ray 10/12/18 22:33 IMPRESSION: No acute findings. Upper Extremity CT 10/13/18 00:03 IMPRESSION: No acute findings. Upper Extremity MRI 10/13/18 03:09 IMPRESSION: Ruptured long head biceps tendon attachment with superior labral tear. Fluid throughout the subacromial/subdeltoid bursa. Fluid in the AC joint, question AC separation Mild tendinopathy distal supra and infraspinatus tendons Report called to emergency room attending physician Status: Image reviewed by me - I have reviewed patient's MRI which demonstrates fluid within the AC joint and ruptured long head of the biceps. No evidence of intra-articular effusion no osseous abnormality Assessment & Plan - Diagnosis (1) Cellulitis of shoulder Is this a current diagnosis for this admission?: Yes Plan: I have reviewed patient's MRI which demonstrates fluid collection within the AC joint. The AC joint was prepped with ChloraPrep and attempted aspiration was p erformed which was unsuccessful only mild blood was retrieved. Given the MRI findings and the small amount of fluid collection negative aspiration combined with patient's laboratory values I would recommend a trial of IV antibiotics initially if patient fails to see significant clinical improvement operative intervention is a possibility but would refrain until no clinical improvement is noted.
[2018-10-13] MEDS ORDERED: ONDANSETRON HCL INJ/PF 4 MG/2 ML SDV IV ONE (10:30)
[2018-10-13] MEDS ORDERED: HYDROMORPHONE HCL INJ/PF 2 MG/ML AMPULE IV ONE (10:30)
[2018-10-13] MEDS ORDERED: VANCOMYCIN HCL INJ 1000 MG VIAL IV ONE (10:31)
[2018-10-13] MEDS ORDERED: PIPERACILLIN/TAZOBACTAM 3.375 GM VIAL IV ONE (10:31)
--- NOTE | 2018-10-13 10:38 | ER Document Report ---
ED General - General Chief Complaint: Shoulder Pain Stated Complaint: SHOULDER AND NECK PAIN Time Seen by Provider: 10/12/18 22:33 Primary Care Provider: CHERRI RETANA DO [Primary Care Provider] - Follow up as needed TRAVEL OUTSIDE OF THE [place] IN LAST 30 DAYS: No - HPI Notes: Patient presents emergency department for evaluation of right shoulder pain. The initial part of this patient's care was handled by emergency physician Dr. Harper, please refer to his note. In short he presented with right shoulder pain. It was spontaneous in onset, nontraumatic. He is never had anything similar. No fevers. Happened while he was in dialysis. He came to the ED for evaluation. He had multiple imaging studies and was sent for MRI. This was pending, Dr. Murphy was to consult to see the patient following the MRI. - Related Data Allergies/Adverse Reactions: No Known Allergies Allergy (Verified 08/29/18 07:52) Past Medical History - General Information source: Patient - Social History Smoking Status: Unknown if Ever Smoked Chew tobacco use (# tins/day): No Frequency of alcohol use: None Drug Abuse: None Family History: Reviewed & Not Pertinent Patient has suicidal ideation: No Patient has homicidal ideation: No - Past Medical History Cardiac Medical History: Reports: Hx Coronary Artery Disease - CHOLESTEROL, Hx Heart Attack, Hx Hypercholesterolemia, Hx Hypertension Denies: Hx DVT, Hx Pulmonary Embolism Pulmonary Medical History: Reports: Hx Asthma, Hx COPD, Hx Pneumonia Denies: Hx Bronchitis Neurological Medical History: Reports: Hx Cerebrovascular Accident, Hx Seizures - History of seizure when renal failure discovered; never on antiepileptic Endocrine Medical History: Reports: Hx Diabetes Mellitus Type 1, Hx Diabetes Mellitus Type 2. Denies: Hx Hyperthyroidism, Hx Hypothyroidism Renal/ Medical History: Reports: Hx End Stage Renal Disease, Hx Hemodialysis. Denies: Hx Peritoneal Dialysis GI Medical History: Reports: Hx Gastroesophageal Reflux Disease. Denies: Hx Cirrhosis, Hx Hepatitis Musculoskeletal Medical History: Reports Hx Arthritis Psychiatric Medical History: Reports: Hx Depression Infectious Medical History: Denies: Hx Hepatitis Past Surgical History: Reports: Hx Orthopedic Surgery, Hx Tonsillectomy, Hx Vascular Surgery - fistula left arm, Other - Peritoneal dialysis catheter placement - Immunizations Immunizations up to date: Yes Hx Diphtheria, Pertussis, Tetanus Vaccination: - UNSURE Review of Systems - Review of Systems Constitutional: No symptoms reported EENT: No symptoms reported Cardiovascular: No symptoms reported Respiratory: No symptoms reported Gastrointestinal: No symptoms reported Genitourinary: No symptoms reported Musculoskeletal: See HPI Skin: No symptoms reported Neurological/Psychological: No symptoms reported Physical Exam - Vital signs Vitals: Temp Pulse Resp BP Pulse Ox 98.7 F 92 25 H 146/76 H 94 10/12/18 20:39 10/12/18 20:39 10/12/18 20:39 10/12/18 20:39 10/12/18 20:39 - Notes Notes: Vital signs reviewed, please refer to chart. Patient is normocephalic, atraumatic. Pupils equal round, reactive to light. Neck is supple without meningismus. Heart is regular rate and rhythm. Lungs are clear to auscultation bilaterally. Abdomen is soft, nontender, normoactive bowel sounds throughout. Extremities without cyanosis, clubbing, edema. Peripheral pulses are equal. Skin is warm and dry. AV fistula on the left upper extremity with palpable thrill, no overlying erythema. Examination of the right shoulder reveals no obvious deformity. There is tenderness to palpation over the anterior shoulder, passive range of motion elicits significant pain. Neurovascularly intact distally. Course - Re-evaluation Re-evalutation: 10/13/18 10:40 Patient was initially seen by Dr. Harper. Please refer to his note to correlate with this 1. In short patient was awaiting MRI. He did have an MRI which showed significant amount of fluid in the subacromial and subdeltoid bursa is. There is also fluid around the AC joint. Dr. Horton also communicated potential spontaneous rupture of long head biceps tendon. I spoke with Dr. Murphy. He does not believe a spontaneous bicep tendon rupture would be responsible for the significant pain. He is concerned about this being a septic joint. He attempted to obtain fluid from the AC joint but was unsuccessful. He asked that IV antibiotics be given and the patient be admitted to the medicine service. I spoke with Dr. Snider, he will admit the patient for further care. - Vital Signs Vital signs: Temp Pulse Resp BP Pulse Ox 98.7 F 92 12 130/92 H 95 10/13/18 05:45 10/12/18 20:39 10/13/18 09:15 10/13/18 09:15 10/13/18 09:15 - Laboratory Result Diagrams: 10/12/18 22:55 10/12/18 22:55 Laboratory results interpreted by me: 10/12/18 10/12/18 10/12/18 22:55 22:55 22:55 WBC 11.9 H RBC 3.98 L Hgb 13.3 L MCH 33.6 H RDW 14.3 H Absolute Neutrophils 8.4 H ESR 71 H BUN 27 H Creatinine 5.86 H Est GFR ( Amer) 12 L Est GFR (Non-Af Amer) 10 L C-Reactive Protein 10/12/18 22:55 WBC RBC Hgb MCH RDW Absolute Neutrophils ESR BUN Creatinine Est GFR ( Amer) Est GFR (Non-Af Amer) C-Reactive Protein 57.1 H Discharge - Discharge Clinical Impression: Right shoulder pain, Possible septic joint Condition: Stable Disposition: ADMITTED INPATIENT Admitting Provider: Serena Snider Unit Admitted: Medical Floor Referrals: CHERRI RETANA DO [Primary Care Provider] - Follow up as needed
[2018-10-13] MEDS ORDERED: VANCOMYCIN HCL 0 MG in DEXTROSE 5%-WATER 250 ML IV NR (11:15)
[2018-10-13] MEDS ORDERED: ACETAMINOPHEN 325 MG TABLET PO PRN (11:16)
--- NOTE | 2018-10-13 11:54 | PDOC H&P ---
History of Present Illness Admission Date/PCP: CHERRI RETANA DO Patient complains of: right shoulder pain History of Present Illness: GET BURGESS is a 63 year old male with a PMH of IDDM, ESRD-on MWF dialysis, hypertension, CAD with 2 prior stents, osteoarthritis and history of CVA who presented with acute right shoulder pain yesterday while getting dialysis yes terday. He did complete his dialysis. He went to the ER and CT of the shoulder was done which was unremarkable. MRI was pursued which showed no glenohumeral joint fluid collection and moderate fluid in the subacromial bursa and biceps rupture as well. ESR and CRP are also elevated. Orthopedics did evaluate patient and tried tapping the shoulder joint but no fluid was obtained. Patient denies any recent trauma or fall. Upon encounter, he does complain of mild tenderness on palpation of the AC keyshawn int. There is minimal LOM from pain on attempt to abduct the shoulder. Discussed in length with Dr. Murphy who does not deem that there is a need for any orthopedic or surgical intervention at this time. Ruptured biceps tendon is also deemed related to degenerative process by ortho and does not need intervention at this time. This is likely a cellulitis vs a beginning or early septic joint that warrants IV antibiotics for now. Past Medical History Cardiac Medical History: Reports: Coronary Artery Disease - CHOLESTEROL, Myocardial Infarction, Hyperlipidema, Hypertension Denies: DVT, Pulmonary Embolism Pulmonary Medical History: Reports: Asthma, Chronic Obstructive Pulmonary Disease (COPD), Pneumonia Denies: Bronchitis Neurological Medical History: Reports: Seizures - History of seizure when renal failure discovered; never on antiepileptic Endocrine Medical History: Reports: Diabetes Mellitus Type 1, Diabetes Mellitus Type 2 Denies: Hyperthyroidism, Hypothyroidism Renal/ Medical History: Reports: End Stage Renal Disease GI Medical History: Reports: Gastroesophageal Reflux Disease Denies: Cirrhosis, Hepatitis Musculoskeltal Medical History: Reports: Arthritis Psychiatric Medical History: Reports: Depression Hematology: Reports: Anemia Past Surgical History Past Surgical History: Reports: Orthopedic Surgery, Tonsillectomy, Vascular Surgery - fistula left arm, Other - Peritoneal dialysis catheter placement Social History Smoking Status: Unknown if Ever Smoked Frequency of Alcohol Use: None Hx Recreational Drug Use: No Drugs: None Hx Prescription Drug Abuse: No Family History Family History: Reviewed & Not Pertinent Parental Family History Reviewed: Yes - no premature CAD Children Family History Reviewed: No Sibling(s) Family History Reviewed.: No Medication/Allergy Home Medications: Ipratropium/Albuterol Sulfate [Duoneb 3 ml Ampul] 3 ml [facility] RTQ6HP PRN #120 [email or web address] 08/29/18 Nicotine [Nicoderm 21 mg/24 Hr Transderm Patch] 1 patch TD DAILY #30 patch.td24 08/29/18 Prednisone [Deltasone 20 mg Tablet] 20 mg PO DAILY #15 tablet 08/29/18 Acetaminophen [Tylenol 325 mg Tablet] 650 mg PO Q4HP PRN tablet 08/30/18 Diazepam [Valium 5 mg Tablet] 10 mg PO Q12HP PRN tablet 08/30/18 Docusate Sodium [Colace 100 mg Capsule] 100 mg PO DAILY #30 capsule 08/30/18 Oxycodone HCl/Acetaminophen [Percocet 5-325 mg Tablet] 1 tab PO Q6HP PRN tablet 08/30/18 Allergies/Adverse Reactions: No Known Allergies Allergy (Verified 08/29/18 07:52) Review of Systems All systems: reviewed and no additional remarkable complaints except as stated - as mentioned in HPI Physical Exam Vital Signs: Temp Pulse Resp BP Pulse Ox 98.7 F 92 12 130/92 H 95 10/13/18 05:45 10/12/18 20:39 10/13/18 09:15 10/13/18 09:15 10/13/18 09:15 Intake & Output 10/12/18 10/13/18 10/14/18 06:59 06:59 06:59 Weight 212 lb 15.465 oz General appearance: PRESENT: no acute distress, well-developed, well-nourished Head exam: PRESENT: atraumatic, normocephalic Eye exam: PRESENT: conjunctiva pink, EOMI, PERRLA. ABSENT: scleral icterus Ear exam: PRESENT: normal external ear exam Mouth exam: PRESENT: moist, tongue midline Neck exam: ABSENT: carotid bruit, JVD, lymphadenopathy, thyromegaly Respiratory exam: PRESENT: clear to auscultation melecio. ABSENT: rales, rhonchi, wheezes Cardiovascular exam: PRESENT: RRR. ABSENT: diastolic murmur, rubs, systolic murmur Pulses: PRESENT: normal dorsalis pedis pul GI/Abdominal exam: PRESENT: normal bowel sounds, soft. ABSENT: distended, guarding, mass, organolmegaly, rebound, tenderness Rectal exam: PRESENT: deferred Extremities exam: PRESENT: other - Mild tenderness on palpation of the AC joint. There is minimal LOM from pain on attempt to abduct the shoulder. Neurological exam: PRESENT: alert, awake, oriented to person, oriented to place, oriented to time, oriented to situation, CN II-XII grossly intact. ABSENT: motor sensory deficit Results Laboratory Results: 10/12/18 22:55 10/12/18 22:55 10/12/18 10/12/18 10/12/18 22:55 22:55 22:55 WBC 11.9 H RBC 3.98 L Hgb 13.3 L Hct 37.9 MCV 95 MCH 33.6 H MCHC 35.2 RDW 14.3 H Plt Count 251 Seg Neutrophils % 70.6 Lymphocytes % 17.0 Monocytes % 11.4 Eosinophils % 0.7 Basophils % 0.3 Absolute Neutrophils 8.4 H Absolute Lymphocytes 2.0 Absolute Monocytes 1.4 Absolute Eosinophils 0.1 Absolute Basophils 0.0 Sodium 140.9 Potassium 3.8 Chloride 98 Carbon Dioxide 24 Anion Gap 19 BUN 27 H Creatinine 5.86 H Est GFR ( Amer) 12 L Est GFR (Non-Af Amer) 10 L Glucose 103 Uric Acid 4.3 Calcium 8.5 C-Reactive Protein 10/12/18 22:55 WBC RBC Hgb Hct MCV MCH MCHC RDW Plt Count Seg Neutrophils % Lymphocytes % Monocytes % Eosinophils % Basophils % Absolute Neutrophils Absolute Lymphocytes Absolute Monocytes Absolute Eosinophils Absolute Basophils Sodium Potassium Chloride Carbon Dioxide Anion Gap BUN Creatinine Est GFR ( Amer) Est GFR (Non-Af Amer) Glucose Uric Acid Calcium C-Reactive Protein 57.1 H 10/12/18 22:55 Troponin I < 0.012 Impressions: Chest X-Ray 10/12/18 22:33 IMPRESSION: No acute cardiopulmonary findings. Shoulder X-Ray 10/12/18 22:33 IMPRESSION: No acute findings. Upper Extremity CT 10/13/18 00:03 IMPRESSION: No acute findings. Upper Extremity MRI 10/13/18 03:09 IMPRESSION: Ruptured long head biceps tendon attachment with superior labral tear. Fluid throughout the subacromial/subdeltoid bursa. Fluid in the AC joint, question AC separation Mild tendinopathy distal supra and infraspinatus tendons Report called to emergency room attending physician Assessment and Plan - Diagnosis (1) Cellulitis of shoulder Is this a current diagnosis for this admission?: Yes Plan: Cellulitis vs a beginning or early septic joint that warrants IV antibiotics for now. Will continue IV vancomycin and Zosyn for now and will continue to reassess response to IV antibiotics. Orthopedics will continue to follow and re evaluate joint as well. (2) ESRD (end stage renal disease) Is this a current diagnosis for this admission?: Yes Plan: He completed dialysis yesterday. He says he still makes very little urine. (3) CAD (coronary artery disease) Is this a current diagnosis for this admission?: Yes Plan: Stable. He has 2 prior stenting. Will resume home meds once verified by pharmacy. (4) IDDM (insulin dependent diabetes mellitus) Is this a current diagnosis for this admission?: Yes Plan: Patient says he still uses insulin but this has been spaced out by his PCP as he does have hypoglycemic episodes at home in the 60s. Will check an A1c and see if he still needs to be on insulin. - Time Time Spent with patient: 25-34 minutes
[2018-10-13] MEDS: PIPERACILLIN SODIUM/TAZOBACTAM 2.25 GM in NORMAL SALINE 50 ML IV SCH ×2 (12:00→17:30)
[2018-10-13] MEDS ORDERED: VANCOMYCIN HCL 1,250 MG in DEXTROSE 5%-WATER 250 ML IV SCH (12:00)
[2018-10-13 12:42] LABS: ABSOLUTE BASOPHILS # (AUTO) 0.1 10^3/uL (0.0-0.2); ABSOLUTE EOSINOPHILS # (AUTO) 0.1 10^3/uL (0.0-0.6); ABSOLUTE LYMPHOCYTES (AUTO) 1.3 10^3/uL (0.5-4.7); ABSOLUTE MONOCYTES (AUTO) 1.3 10^3/uL (0.1-1.4); ABSOLUTE NEUT (AUTO) 8.4 10^3/uL (1.7-8.2); BASOPHILS % (AUTO) 0.6 % (0-2); EOSINOPHILS % (AUTO) 0.9 % (0-6); HEMATOCRIT 35.8 % (37.9-51.0); HEMOGLOBIN 12.1 g/dL (13.5-17.0); LYMPHOCYTES % (AUTO) 11.8 % (13-45); MEAN CORPUSCULAR HEMOGLOBIN 32.3 pg (27.0-33.4); MEAN CORPUSCULAR HGB CONC 33.8 g/dL (32.0-36.0); MEAN CORPUSCULAR VOLUME 96 fl (80-97); MONOCYTES % (AUTO) 11.5 % (3-13); PLATELET COUNT 229 10^3/uL (150-450); RED BLOOD COUNT 3.75 10^6/uL (4.35-5.55); RED CELL DISTRIBUTION WIDTH 14.4 % (11.5-14.0); SEGMENTED NEUTROPHILS % (AUTO) 75.2 % (42-78); TOTAL CELLS COUNTED % (AUTO) 100 %; WHITE BLOOD COUNT 11.2 10^3/uL (4.0-10.5)
[2018-10-13 12:57] LABS: ALANINE AMINOTRANSFERASE 50 U/L (21-72); ALKALINE PHOSPHATASE 87 U/L (38-126); ANION GAP 13 (5-19); ASPARTATE AMINO TRANSFERASE 32 U/L (17-59); BILIRUBIN,DIRECT 0.6 mg/dL (0.0-0.4); BILIRUBIN,TOTAL 0.9 mg/dL (0.2-1.3); BLOOD UREA NITROGEN 34 mg/dL (7-20); CALCIUM 8.6 mg/dL (8.4-10.2); CARBON DIOXIDE 26 mmol/L (22-30); CHLORIDE 102 mmol/L (98-107); GLUCOSE 102 mg/dL (75-110); POTASSIUM 3.8 mmol/L (3.6-5.0); SODIUM 140.8 mmol/L (137-145)
[2018-10-13] MEDS: NICOTINE 21 MG/24 HR PATCH.TD24 TD SCH (16:38)
[2018-10-13] MEDS: HYDROMORPHONE HCL INJ/PF 2 MG/ML AMPULE IV PRN ×2 (17:36→22:28)
[2018-10-13] MEDS ORDERED: OXYCODONE HCL IR 5 MG TABLET PO PRN (18:15)
--- NOTE | 2018-10-13 19:17 | EKG REPORT ---
SEVERITY:- BORDERLINE ECG - SINUS RHYTHM BORDERLINE T ABNORMALITIES, ANT-LAT LEADS : Confirmed by: Charmaine Ryan MD 13-Oct-2018 19:16:46
[2018-10-13] MEDS: HEPARIN SOD (PORCINE) 5,000 UNIT/ML 1 ML SYRINGE SUBCUT SCH (22:00)
[2018-10-13] MEDS: DIAZEPAM 5 MG TABLET PO SCH (22:00)
[2018-10-14] MEDS: PIPERACILLIN SODIUM/TAZOBACTAM 2.25 GM in NORMAL SALINE 50 ML IV SCH ×4 (00:57→18:02)
[2018-10-14] MEDS: HYDROMORPHONE HCL INJ/PF 2 MG/ML AMPULE IV PRN ×5 (02:32→16:44)
[2018-10-14] MEDS ORDERED: HYDROMORPHONE HCL INJ/PF 2 MG/ML AMPULE IV PRN (08:30)
[2018-10-14] MEDS ORDERED: OXYCODONE HCL IR 5 MG TABLET PO PRN (09:00)
[2018-10-14] MEDS ORDERED: SEVELAMER HCL 800 MG TABLET PO SCH (09:15)
[2018-10-14] MEDS: NICOTINE 21 MG/24 HR PATCH.TD24 TD SCH (09:54)
[2018-10-14] MEDS: HEPARIN SOD (PORCINE) 5,000 UNIT/ML 1 ML SYRINGE SUBCUT SCH ×2 (09:54→21:30)
[2018-10-14] MEDS: DIAZEPAM 5 MG TABLET PO SCH ×2 (09:54→21:31)
[2018-10-14] MEDS: LIDOCAINE 5% (700 MG) TRANSDERMAL ADH..PATCH TP SCH (10:46)
[2018-10-14] MEDS: SEVELAMER HCL 800 MG TABLET PO SCH ×2 (12:05→16:45)
[2018-10-14] MEDS ORDERED: HYDROMORPHONE HCL INJ/PF 2 MG/ML AMPULE IV ONE (12:30)
[2018-10-14] MEDS ORDERED: HYDROMORPHONE HCL INJ/PF 2 MG/ML AMPULE ONE (12:30)
[2018-10-14] MEDS ORDERED: ONDANSETRON HCL INJ/PF 4 MG/2 ML SDV IV PRN (14:38)
[2018-10-14] MEDS ORDERED: ONDANSETRON HCL INJ/PF 4 MG/2 ML SDV ONE (14:39)
--- NOTE | 2018-10-14 15:40 | PDOC PROGRESS REPORT ---
Subjective Progress Note for:: 10/14/18 Subjective:: Patient continues to have discomfort in his right shoulder. States it is improved with narcotics but worsens with motion and at night. Denies fever chills or sweats. Does admit to long-standing history of shoulder discomfort but has worsened over the past few days. Reason For Visit: SEPSIS,POSSIBLE SEPTIC JOINT Physical Exam Vital Signs: Temp Pulse Resp BP Pulse Ox 97.4 F 73 19 142/87 H 97 10/14/18 12:03 10/14/18 12:03 10/14/18 12:03 10/14/18 12:03 10/14/18 12:03 Intake & Output 10/13/18 10/14/18 10/15/18 06:59 06:59 06:59 Intake Total 855 286 Output Total 25 Balance 830 286 Weight 96.6 kg 97.2 kg Musculoskeletal exam: PRESENT: other - Right shoulder: Swelling along the AC joint with exquisite tenderness to palpation. No erythema or increased warmth compared to noninvolved left upper extremity. No tenderness posterior or lateral. No streaking erythema or palpable lymphadenopathy. Results Laboratory Results: 10/13/18 12:21 10/13/18 12:21 10/12/18 22:55 Troponin I < 0.012 Impressions: Chest X-Ray 10/12/18 22:33 IMPRESSION: No acute cardiopulmonary findings. Shoulder X-Ray 10/12/18 22:33 IMPRESSION: No acute findings. Upper Extremity CT 10/13/18 00:03 IMPRESSION: No acute findings. Upper Extremity MRI 10/13/18 03:09 IMPRESSION: Ruptured long head biceps tendon attachment with superior labral tear. Fluid throughout the subacromial/subdeltoid bursa. Fluid in the AC joint, question AC separation Mild tendinopathy distal supra and infraspinatus tendons Report called to emergency room attending physician Assessment & Plan - Diagnosis (1) Cellulitis of shoulder Is this a current diagnosis for this admission?: Yes Plan: I have reviewed patient's MRI which demonstrates fluid collection within the AC joint, however aspiration was negative. And thus I have attempted IV antibiotics for the past 24 hours patient is failed to see significant improvement will continue to monitor him clinically if no improvement by 10/15/18 will consider operative intervention which includes irrigation debridement right shoulder with biopsy, distal clavicle excision. Will make patient n.p.o. after midnight prophylactically.
--- NOTE | 2018-10-14 17:03 | PDOC PROGRESS REPORT ---
Subjective Progress Note for:: 10/14/18 Subjective:: GET BURGESS is a 63 year old male with a PMH of IDDM, ESRD-on MWF dialysis, hypertension, CAD with 2 prior stents, osteoarthritis and history of CVA who presented with acute right shoulder pain yesterday while getting dialysis yesterday. He did complete his dialysis. He went to the ER and CT of the shoulder was done which was unremarkable. MRI was pursued which showed no glenohumeral joint fluid collection and moderate fluid in the subacromial bursa and biceps rupture as well. ESR and CRP are also elevated. He was admitted for cellulitis vs a beginning or early septic joint. No acute event overnight. He continues to have significant right shoulder pain requiring IV dilaudid. No fever or chills. Orthopedics has re-evaluated patient and plans to proceed with orthopedic intervention if there is no improvement in the next 24 hrs. Reason For Visit: SEPSIS,POSSIBLE SEPTIC JOINT Physical Exam Vital Signs: Temp Pulse Resp BP Pulse Ox 97.4 F 73 19 142/87 H 97 10/14/18 12:03 10/14/18 12:03 10/14/18 12:03 10/14/18 12:03 10/14/18 12:03 Intake & Output 10/13/18 10/14/18 10/15/18 06:59 06:59 06:59 Intake Total 855 286 Output Total 25 Balance 830 286 Weight 212 lb 15.465 oz 214 lb 4.629 oz General appearance: PRESENT: no acute distress, well-developed, well-nourished Head exam: PRESENT: atraumatic, normocephalic Eye exam: PRESENT: conjunctiva pink, EOMI, PERRLA. ABSENT: scleral icterus Ear exam: PRESENT: normal external ear exam Neck exam: ABSENT: carotid bruit, JVD, lymphadenopathy, thyromegaly Respiratory exam: PRESENT: clear to auscultation melecio. ABSENT: rales, rhonchi, wheezes Cardiovascular exam: PRESENT: RRR. ABSENT: diastolic murmur, rubs, systolic murmur Pulses: PRESENT: normal dorsalis pedis pul GI/Abdominal exam: PRESENT: normal bowel sounds, soft. ABSENT: distended, guard ing, mass, organolmegaly, rebound, tenderness Rectal exam: PRESENT: deferred Musculoskeletal exam: PRESENT: other - Mild tenderness on palpation of the AC joint. There is minimal LOM from pain on attempt to abduct the shoulder. Neurological exam: PRESENT: alert, awake, oriented to person, oriented to place, oriented to time, oriented to situation, CN II-XII grossly intact. ABSENT: motor sensory deficit Results Laboratory Results: 10/13/18 12:21 10/13/18 12:21 10/12/18 22:55 Troponin I < 0.012 Impressions: Chest X-Ray 10/12/18 22:33 IMPRESSION: No acute cardiopulmonary findings. Shoulder X-Ray 10/12/18 22:33 IMPRESSION: No acute findings. Upper Extremity CT 10/13/18 00:03 IMPRESSION: No acute findings. Upper Extremity MRI 10/13/18 03:09 IMPRESSION: Ruptured long head biceps tendon attachment with superior labral tear. Fluid throughout the subacromial/subdeltoid bursa. Fluid in the AC joint, question AC separation Mild tendinopathy distal supra and infraspinatus tendons Report called to emergency room attending physician Assessment and Plan - Diagnosis (1) Cellulitis of shoulder Is this a current diagnosis for this admission?: Yes Plan: Cellulitis vs a beginning or early septic joint that warrants IV antibiotics for now. Will continue IV vancomycin and Zosyn for now and will continue to reassess response to IV antibiotics. Orthopedics will continue to follow and re evaluate joint as well. 10/14: He continues to have significant right shoulder pain requiring IV dilaudid despite being on IV antibiotics. No fever or chills. Orthopedics has re- evaluated patient and plans to proceed with orthopedic intervention tomorrow if there is no improvement in the next 24 hrs. (2) ESRD (end stage renal disease) Is this a current diagnosis for this admission?: Yes Plan: He completed dialysis on Monday. He says he still makes very little urine. (3) CAD (coronary artery disease) Is this a current diagnosis for this admission?: Yes Plan: Stable. (4) IDDM (insulin dependent diabetes mellitus) Is this a current diagnosis for this admission?: Yes Plan: Controlled. Hba1c is 5.3.
[2018-10-14] MEDS ORDERED: PROMETHAZINE HCL INJ 25 MG/1 ML VIAL IV ONE (17:45)
--- NOTE | 2018-10-14 18:43 | ADVANCED CARE ---
- Diagnosis (1) Cellulitis of shoulder Diagnosis Current: Yes (2) ESRD (end stage renal disease) Diagnosis Current: Yes (3) CAD (coronary artery disease) Diagnosis Current: Yes (4) IDDM (insulin dependent diabetes mellitus) Diagnosis Current: Yes Resuscitation Status: Full Code Discussion: Discussed with patient. He verbalizes he wants full resuscitation including chest compressions, defibrillation and intubation if the need arises.
[2018-10-15] MEDS: PIPERACILLIN SODIUM/TAZOBACTAM 2.25 GM in NORMAL SALINE 50 ML IV SCH ×4 (00:31→22:55)
[2018-10-15] MEDS: HYDROMORPHONE HCL INJ/PF 2 MG/ML AMPULE IV PRN ×2 (02:04→05:03)
[2018-10-15] MEDS ORDERED: NORMAL SALINE 1000 ML 1,000 ML IV PRN (05:00)
[2018-10-15] MEDS ORDERED: CEFAZOLIN SODIUM 2 GM in DEXTROSE 5%-WATER 100 ML IV PRN (05:00)
[2018-10-15 05:17] LABS: ABSOLUTE BASOPHILS # (AUTO) 0.1 10^3/uL (0.0-0.2); ABSOLUTE EOSINOPHILS # (AUTO) 0.1 10^3/uL (0.0-0.6); ABSOLUTE LYMPHOCYTES (AUTO) 1.8 10^3/uL (0.5-4.7); ABSOLUTE MONOCYTES (AUTO) 1.1 10^3/uL (0.1-1.4); ABSOLUTE NEUT (AUTO) 6.7 10^3/uL (1.7-8.2); BASOPHILS % (AUTO) 0.6 % (0-2); EOSINOPHILS % (AUTO) 1.2 % (0-6); HEMATOCRIT 37.5 % (37.9-51.0); HEMOGLOBIN 12.6 g/dL (13.5-17.0); LYMPHOCYTES % (AUTO) 18.2 % (13-45); MEAN CORPUSCULAR HEMOGLOBIN 31.8 pg (27.0-33.4); MEAN CORPUSCULAR HGB CONC 33.5 g/dL (32.0-36.0); MEAN CORPUSCULAR VOLUME 95 fl (80-97); MONOCYTES % (AUTO) 11.1 % (3-13); PLATELET COUNT 222 10^3/uL (150-450); RED BLOOD COUNT 3.96 10^6/uL (4.35-5.55); RED CELL DISTRIBUTION WIDTH 14.4 % (11.5-14.0); SEGMENTED NEUTROPHILS % (AUTO) 68.9 % (42-78); TOTAL CELLS COUNTED % (AUTO) 100 %; WHITE BLOOD COUNT 9.7 10^3/uL (4.0-10.5)
[2018-10-15 05:57] LABS: ERYTHROCYTE SEDIMENTATION RATE 78 mm/hr (0-20)
[2018-10-15 06:38] LABS: ANION GAP 19 (5-19); BLOOD UREA NITROGEN 51 mg/dL (7-20); C-REACTIVE PROTEIN 77.5 mg/L (<10.0); CALCIUM 7.8 mg/dL (8.4-10.2); CARBON DIOXIDE 22 mmol/L (22-30); CHLORIDE 100 mmol/L (98-107); GLUCOSE 82 mg/dL (75-110); POTASSIUM 4.6 mmol/L (3.6-5.0); SODIUM 140.6 mmol/L (137-145)
[2018-10-15] MEDS ORDERED: SEVELAMER HCL 800 MG TABLET PO ONE (06:45)
[2018-10-15] MEDS ORDERED: DEXTROSE 50%-WATER 25 GM/50 ML DISP.SYRIN IV PRN ×2 (07:51)
[2018-10-15] MEDS ORDERED: DEXTROSE 40% GEL 15 GM TUBE PO PRN ×2 (07:51)
[2018-10-15] MEDS ORDERED: GLUCAGON,HUMAN RECOMB 1 MG INJ SUBCUT PRN (07:51)
--- NOTE | 2018-10-15 07:54 | PDOC PROGRESS REPORT ---
Subjective Progress Note for:: 10/15/18 Subjective:: Patient continues to have discomfort in his right shoulder, no significant private branch exchange service advisor the past 24 hours.. States it is improved with narcotics but worsens with motion and at night. Denies fever chills or sweats. Reason For Visit: SEPSIS,POSSIBLE SEPTIC JOINT Physical Exam Vital Signs: Temp Pulse Resp BP Pulse Ox 98.2 F 96 16 136/66 H 94 10/15/18 03:33 10/15/18 03:33 10/15/18 03:33 10/15/18 03:33 10/15/18 03:33 Intake & Output 10/14/18 10/15/18 10/16/18 06:59 06:59 06:59 Intake Total 855 894 Output Total 25 0 Balance 830 894 Weight 97.2 kg 98 kg Musculoskeletal exam: PRESENT: other - Right shoulder: Tenderness palpation of the AC joint. No pain with palpation along the posterior lateral aspect of the humerus. Pain with attempted shoulder adduction. No erythema or increased warmth. No lymphadenitis. Results Laboratory Results: 10/15/18 04:20 10/15/18 06:08 10/15/18 10/15/18 10/15/18 04:20 04:20 06:08 WBC 9.7 RBC 3.96 L Hgb 12.6 L Hct 37.5 L MCV 95 MCH 31.8 MCHC 33.5 RDW 14.4 H Plt Count 222 Seg Neutrophils % 68.9 Lymphocytes % 18.2 Monocytes % 11.1 Eosinophils % 1.2 Basophils % 0.6 Absolute Neutrophils 6.7 Absolute Lymphocytes 1.8 Absolute Monocytes 1.1 Absolute Eosinophils 0.1 Absolute Basophils 0.1 Sodium Cancelled 140.6 Potassium Cancelled 4.6 Chloride Cancelled 100 Carbon Dioxide Cancelled 22 Anion Gap Cancelled 19 BUN Cancelled 51 H Creatinine Cancelled 11.02 H Est GFR ( Amer) Cancelled 6 L Est GFR (Non-Af Amer) Cancelled 5 L Glucose Cancelled 82 Calcium Cancelled 7.8 L C-Reactive Protein Cancelled 77.5 H 10/12/18 22:55 Troponin I < 0.012 Impressions: Chest X-Ray 10/12/18 22:33 IMPRESSION: No acute cardiopulmonary findings. Shoulder X-Ray 10/12/18 22:33 IMPRESSION: No acute findings. Upper Extremity CT 10/13/18 00:03 IMPRESSION: No acute findings. Upper Extremity MRI 10/13/18 03:09 IMPRESSION: Ruptured long head biceps tendon attachment with superior labral tear. Fluid throughout the subacromial/subdeltoid bursa. Fluid in the AC joint, question AC separation Mild tendinopathy distal supra and infraspinatus tendons Report called to emergency room attending physician Assessment & Plan - Diagnosis (1) Cellulitis of shoulder Is this a current diagnosis for this admission?: Yes Plan: I have reviewed patient's MRI which demonstrates fluid collection within the AC joint, however aspiration was negative. And thus I have attempted IV antibiotics for the past 48 hours patient is failed to see significant improvement at this point feel would be in the patient's best interest to proceed with operative intervention to obtain cultures and biopsy of the AC joint. We will plan to proceed with operative intervention on 10/16/18 since patient does require dialysis today.
[2018-10-15] MEDS ORDERED: ACETAMINOPHEN 325 MG TABLET PO PRN (08:10)
[2018-10-15] MEDS ORDERED: CEFAZOLIN 2 GM/D5W RTU 2 GM/50 ML RTUPB IV PRN (08:27)
[2018-10-15] MEDS ORDERED: RINGERS SOLUTION,LACTATED 1,000 ML IV PRN (08:28)
[2018-10-15] MEDS: HEPARIN SOD (PORCINE) 5,000 UNIT/ML 1 ML SYRINGE SUBCUT SCH ×2 (09:36→22:41)
[2018-10-15] MEDS: DIAZEPAM 5 MG TABLET PO SCH ×2 (09:36→22:41)
--- NOTE | 2018-10-15 09:59 | PDOC CONSULTATION ---
Consultation Consult Date: 10/15/18 Attending physician:: GABRIELLA TAVARES Consult reason:: I was asked to see the patient to supervise hemodialysis while here in the hospital. History of Present Illness Admission Date/PCP: 10/13/18 11:31 CHERRI RETANA DO History of Present Illness: GET BURGESS is a 63 year old male with history of end-stage renal disease on maintenance hemodialysis on Tuesdays and Fridays supervised by preschool program director Dr. Dupont of his [facility], diabetes mellitus type 2, hypertension and coronary artery disease who was admitted on October 13 last Monday. Patient had acute onset of right shoulder pain in the middle of dialysis treatment on Monday so he went to the emergency room. Initial workup showed a negative CT scan and an MRI showing moderate fluid in the subacromial bursa and biceps rupture. Orthopedic surgeon Dr. andrea was consulted who att empted to do arthrocentesis in the shoulder but obtained no fluid. Currently the patient is being treated for possible right shoulder cellulitis with IV antibiotics. Plan is to do surgical intervention tomorrow. I am seeing the patient is morning during dialysis treatment. He is tolerating dialysis without any problems so far. Patient states that he did not have any trauma on his shoulder nor did anything to precipitate shoulder pain. He said he has chest pains on and off but not currently and he is short of breath all the time due to versus asthma and COPD. He said he has some nausea vomiting and constipation. Patient is currently being monitored during dialysis treatment. Past Medical History Cardiac Medical History: Reports: Coronary Artery Disease - CHOLESTEROL, Hyperlipidemia, Hypertension-primary, Myocardial Infarction Pulmonary Medical History: Reports: Asthma, Chronic Obstructive Pulmonary Disease (COPD), Pneumonia EENT Medical History: Reports: Other - Hearing loss Neurological Medical History: Reports: Ischemic CVA, Seizures - History of seizure when renal failure discovered; never on antiepileptic, Other - Left hemiparesis Endocrine Medical History: Reports: Diabetes Mellitus Type 2 Renal/ Medical History: Reports: End Stage Renal Disease, Hyperphosphatemia, Secondary Hyperparathyroidism, Other - Complicated cyst on the left kidney. GI Medical History: Reports: Gastroesophageal Reflux Disease, Peptic Ulcer Disease, Other - History of GI bleed Musculoskeltal Medical History: Reports: Arthritis, Other - Chronic back pain Psychiatric Medical History: Reports: Depression, Tobacco Dependency Hematology Medical History: Reports Anemia of Chronic Kidney Disease Past Surgical History Past Surgical History: Reports: Dialysis Access Surgery AVF, Dialysis Access Surgery PD, Orthopedic Surgery, Tonsillectomy Social History Information Source: Patient, [facility] Records Smoking Status: Current Every Day Smoker Cigarettes Packs Per Day: 1.5 Number of Years Smokin Last Time Smoked: 10/12/18 Frequency of Alcohol Use: None Hx Recreational Drug Use: No Drugs: None Hx Prescription Drug Abuse: No - Advance Directive Resuscitation Status: Full Code Family History Family History: Chronic Kidney Disease - Mother, DM - Mother, sister and bro ther, Hypertension - Mother, father, sister and brother, Malignancy - Mother and maternal grandmother Parental Family History Reviewed: Yes Children Family History Reviewed: Yes Sibling(s) Family History Reviewed.: Yes Medication/Allergy Home Medications: Diazepam [Valium] 10 mg PO Q12 10/13/18 Insulin Glargine,Hum.rec.anlog [Lantus Insulin 100 Unit/1 ml 10 ml] 20 units SQ QHS 10/13/18 Oxycodone HCl 15 mg PO Q6HP PRN 10/13/18 Sevelamer HCl [Renagel 800 mg Tablet] 1,600 mg PO .SNACKS 10/14/18 Sevelamer HCl [Renagel 800 mg Tablet] 2,400 mg PO MEALS 10/14/18 Allergies/Adverse Reactions: No Known Allergies Allergy (Verified 08/29/18 07:52) Review of Systems All systems: reviewed and no additional remarkable complaints except as stated Review of Systems: Constitutional: ABSENT: chills, fatigue, fever(s), headache(s), weight gain, weight loss Eyes: ABSENT: visual disturbances Ears: ABSENT: hearing changes Cardiovascular: ABSENT: Dyspnea on exertion, edema, orthropnea, palpitations; admits occasional chest pains Respiratory: ABSENT: cough, hemoptysis; admits shortness of breath Gastrointestinal: ABSENT: abdominal pain, constipation, diarrhea, hematemesis, hematochezia, nausea, vomiting Genitourinary: ABSENT: dysuria, hematuria Musculoskeletal: ABSENT: joint swelling; admits right shoulder pain Integumentary: ABSENT: rash, wounds Neurological: ABSENT: abnormal gait, abnormal speech, confusion, dizziness, focal weakness, numbness, syncope Psychiatric: ABSENT: anxiety, depression Endocrine: ABSENT: cold intolerance, heat intolerance, polydipsia, polyuria Hematologic/Lymphatic: ABSENT: easy bleeding, easy bruising, lymphadenopathy Physical Exam Vital Signs: Temp Pulse Resp BP Pulse Ox 98.2 F 96 16 136/66 H 94 10/15/18 03:33 10/15/18 03:33 10/15/18 03:33 10/15/18 03:33 10/15/18 03:33 Intake & Output 10/14/18 10/15/18 10/16/18 06:59 06:59 06:59 Intake Total 855 894 Output Total 25 0 Balance 830 894 Weight 97.2 kg 98 kg Vitals during dialysis: Blood pressure 155/67, heart rate of 89, blood flow rate of 450 mL/min, and dialysate flow rate of 800 mL/min. Exam: General appearance: No acute distress, cooperative, well-developed, well- nourished Head exam: PRESENT: atraumatic, normocephalic Eye exam: PRESENT: Conjunctiva [place], EOMI, PERRLA. ABSENT: conjunctival injection, scleral icterus Mouth exam: PRESENT: moist, neck supple, tongue midline Neck exam: PRESENT: full ROM. ABSENT: carotid bruit, JVD, lymphadenopathy, thyromegaly Respiratory exam: PRESENT: clear to auscultation bilaterally. ABSENT: rales, rhonchi, stridor, wheezes Cardiovascular exam: PRESENT: RRR, +S1, +S2. Grade 2/6 systolic murmur Pulses: PRESENT: normal radial pulses, normal dorsalis pedis pulses GI/Abdominal exam: PRESENT: normal bowel sounds, soft. ABSENT: guarding, mass, tenderness Rectal exam: Deferred Extremities exam: PRESENT: full ROM. ABSENT: calf tenderness, pedal edema Musculoskeletal: PRESENT: Right shoulder in a sling ABSENT: deformity Neurological exam: PRESENT: alert, Awake, Oriented to person, Oriented to place, Oriented to time, reflexes normal, CN II-XII grossly intact. ABSENT: motor sensory deficit Psychiatric exam: PRESENT: appropriate affect, normal mood. ABSENT: homicidal ideation, suicidal ideation Skin exam: PRESENT: intact, dry, warm. ABSENT: rash Results Laboratory Results: 10/15/18 04:20 10/15/18 06:08 10/15/18 10/15/18 10/15/18 04:20 04:20 06:08 WBC 9.7 RBC 3.96 L Hgb 12.6 L Hct 37.5 L MCV 95 MCH 31.8 MCHC 33.5 RDW 14.4 H Plt Count 222 Seg Neutrophils % 68.9 Lymphocytes % 18.2 Monocytes % 11.1 Eosinophils % 1.2 Basophils % 0.6 Absolute Neutrophils 6.7 Absolute Lymphocytes 1.8 Absolute Monocytes 1.1 Absolute Eosinophils 0.1 Absolute Basophils 0.1 Sodium Cancelled 140.6 Potassium Cancelled 4.6 Chloride Cancelled 100 Carbon Dioxide Cancelled 22 Anion Gap Cancelled 19 BUN Cancelled 51 H Creatinine Cancelled 11.02 H Est GFR ( Amer) Cancelled 6 L Est GFR (Non-Af Amer) Cancelled 5 L Glucose Cancelled 82 Calcium Cancelled 7.8 L C-Reactive Protein Cancelled 77.5 H 10/12/18 22:55 Troponin I < 0.012 Impressions: Chest X-Ray 10/12/18 22:33 IMPRESSION: No acute cardiopulmonary findings. Shoulder X-Ray 10/12/18 22:33 IMPRESSION: No acute findings. Upper Extremity CT 10/13/18 00:03 IMPRESSION: No acute findings. Upper Extremity MRI 10/13/18 03:09 IMPRESSION: Ruptured long head biceps tendon attachment with superior labral tear. Fluid throughout the subacromial/subdeltoid bursa. Fluid in the AC joint, question AC separation Mild tendinopathy distal supra and infraspinatus tendons Report called to emergency room attending physician Assessment & Plan - Diagnosis (1) ESRD (end stage renal disease) on dialysis Is this a current diagnosis for this admission?: Yes Plan: We will do dialysis today for 3 hours, using the patient's left arm AV fistula, with 2 potassium bath, blood flow rate of 400 mL per minute, dialysate flow rate of 800 mL per minute, ultrafiltration 2 L as tolerated, no heparin and no Procrit. Dialysis prescription discussed with her nurse. Patient will be monitored throughout dialysis treatment and adjust therapy as necessary. We will continue to support and supervised dialysis while here in the hospital. (2) Cellulitis of shoulder Is this a current diagnosis for this admission?: Yes (3) Hypertension Is this a current diagnosis for this admission?: Yes (4) Anemia in chronic kidney disease Is this a current diagnosis for this admission?: Yes Plan: We will give Procrit as necessary at dialysis. (5) Diabetes mellitus type 2 in obese Is this a current diagnosis for this admission?: Yes - Notes Notes: Thank you very much for this consultation. - Time Time Spent: 50 to 70 Minutes
[2018-10-15] MEDS: LIDOCAINE 5% (700 MG) TRANSDERMAL ADH..PATCH TP SCH (10:33)
[2018-10-15] MEDS: NICOTINE 21 MG/24 HR PATCH.TD24 TD SCH (10:33)
[2018-10-15] MEDS ORDERED: SUCCINYLCHOLINE CHLORIDE INJ 200 MG/10 ML VIAL ONE (10:45)
[2018-10-15] MEDS: SEVELAMER HCL 800 MG TABLET PO SCH ×2 (11:27→16:41)
[2018-10-15] MEDS ORDERED: CEFAZOLIN INJ 1 GM VIAL ONE (17:04)
[2018-10-15] MEDS ORDERED: VANCOMYCIN HCL 750 MG in DEXTROSE 5%-WATER 250 ML IV SCH (18:00)
--- NOTE | 2018-10-15 19:31 | EKG REPORT ---
SEVERITY:- NORMAL ECG - SINUS RHYTHM : Confirmed by: Jacob Kirby MD 15-Oct-2018 19:30:13
[2018-10-15] MEDS ORDERED: FENTANYL CITRATE INJ/PF 100 MCG/2 ML AMPUL ONE ×2 (19:41→20:50)
[2018-10-15] MEDS ORDERED: MIDAZOLAM 2 MG/2 ML INJ ONE (19:41)
[2018-10-15] MEDS ORDERED: PROPOFOL INJ 200 MG/20 ML VIAL IV ONE (19:42)
[2018-10-15] MEDS ORDERED: BUPIVACAINE HCL 0.25% /EPINEPHRINE INJ/PF 30 ML SDV ONE (19:46)
[2018-10-15] MEDS ORDERED: MEPERIDINE HCL/PF INJ 25 MG/1 ML DISP.SYRIN IV PRN (20:17)
[2018-10-15] MEDS ORDERED: MORPHINE SULFATE 10 MG/ML INJ IV PRN (20:17)
[2018-10-15] MEDS ORDERED: DIPHENHYDRAMINE HCL 50 MG/ML VIAL IV PRN (20:17)
[2018-10-15] MEDS ORDERED: ONDANSETRON HCL INJ/PF 4 MG/2 ML SDV IV PRN (20:17)
[2018-10-15] MEDS ORDERED: FENTANYL CITRATE INJ/PF 100 MCG/2 ML AMPUL IV PRN ×2 (20:17)
[2018-10-15] MEDS: FENTANYL CITRATE INJ/PF 100 MCG/2 ML AMPUL IV PRN ×2 (20:50→21:05)
[2018-10-15] MEDS: VANCOMYCIN HCL 750 MG in DEXTROSE 5%-WATER 250 ML IV SCH (22:42)
[2018-10-15] MEDS: PHARMACY COMMUNICATION ORDER MC SCH (22:42)
[2018-10-16] MEDS: HYDROMORPHONE HCL INJ/PF 2 MG/ML AMPULE IV PRN ×4 (04:22→16:06)
[2018-10-16] MEDS: PIPERACILLIN SODIUM/TAZOBACTAM 2.25 GM in NORMAL SALINE 50 ML IV SCH ×3 (06:15→21:16)
--- NOTE | 2018-10-16 07:09 | PDOC PROGRESS REPORT ---
Subjective Progress Note for:: 10/16/18 Reason For Visit: SEPSIS,POSSIBLE SEPTIC JOINT 63-year-old white male postop day 1 status post right distal clavicle resection. Patient with continued complaints of pain this morning but states that is different in character than it was preoperatively. Physical Exam Vital Signs: Temp Pulse Resp BP Pulse Ox 36.8 C 85 20 127/69 H 92 10/16/18 03:53 10/16/18 03:53 10/16/18 03:53 10/16/18 03:53 10/16/18 03:53 Intake & Output 10/15/18 10/16/18 10/17/18 06:59 06:59 06:59 Intake Total 894 905 Output Total 0 445 Balance 894 460 Weight 98 kg 96.3 kg General appearance: PRESENT: mild distress Head exam: PRESENT: normocephalic Respiratory exam: PRESENT: unlabored Extremities exam: PRESENT: other - Right shoulder dressing with minor drainage. Continues to be markedly tender to palpation. Neurological exam: PRESENT: alert, awake, oriented to person, oriented to place, oriented to time, oriented to situation. ABSENT: motor sensory deficit Skin exam: PRESENT: dry, intact, warm. ABSENT: cyanosis, rash Results Laboratory Results: 10/15/18 04:20 10/15/18 06:08 10/12/18 22:55 Troponin I < 0.012 Impressions: Chest X-Ray 10/12/18 22:33 IMPRESSION: No acute cardiopulmonary findings. Shoulder X-Ray 10/12/18 22:33 IMPRESSION: No acute findings. Upper Extremity CT 10/13/18 00:03 IMPRESSION: No acute findings. Upper Extremity MRI 10/13/18 03:09 IMPRESSION: Ruptured long head biceps tendon attachment with superior labral tear. Fluid throughout the subacromial/subdeltoid bursa. Fluid in the AC joint, question AC separation Mild tendinopathy distal supra and infraspinatus tendons Report called to emergency room attending physician Status: Imported from PACS Assessment & Plan - Diagnosis (1) Cellulitis of shoulder Is this a current diagnosis for this admission?: Yes Plan: Gram stain cultures pending. - Time Time Spent with patient: 15-24 minutes Anticipated discharge: Home with Homehealth Within: Other
[2018-10-16] MEDS: SEVELAMER HCL 800 MG TABLET PO SCH ×3 (07:32→16:06)
[2018-10-16] MEDS ORDERED: MORPHINE SULFATE SR 15 MG TABLET PO PRN (09:08)
[2018-10-16] MEDS: NICOTINE 21 MG/24 HR PATCH.TD24 TD SCH (10:29)
[2018-10-16] MEDS: SENNOSIDES/DOCUSATE 8.6-50 MG 1 EACH TABLET PO SCH ×2 (10:30→17:46)
[2018-10-16] MEDS: MORPHINE SULFATE SR 15 MG TABLET PO SCH ×2 (10:30→21:15)
[2018-10-16] MEDS: DIAZEPAM 5 MG TABLET PO SCH ×2 (10:30→21:15)
[2018-10-16] MEDS: POLYETHYLENE GLYCOL 3350 POWDER 17 GM/1 PACKET PO SCH (10:31)
[2018-10-16] MEDS: HEPARIN SOD (PORCINE) 5,000 UNIT/ML 1 ML SYRINGE SUBCUT SCH ×2 (10:31→21:14)
[2018-10-16] MEDS: LIDOCAINE 5% (700 MG) TRANSDERMAL ADH..PATCH TP SCH (10:31)
--- NOTE | 2018-10-16 20:23 | PDOC PROGRESS REPORT ---
Subjective Progress Note for:: 10/16/18 Subjective:: 63 y.o. M with a PMH of IDDM, ESRD-on MWF dialysis, hypertension, CAD with 2 prior stents, osteoarthritis and history of CVA who presented with acute right shoulder pain. CT of the shoulder was done which was unremarkable. MRI was pursued which showed ruptured bicep tendon attachment with superior labral tear, fluid throughout the subacromial/subdeltoid bursa, fluid collection in the AC joint (possible separation). Mild tendinopathy to the distal supra and infrasp inatous tendons. He was admitted for cellulitis vs a beginning or early septic joint. POD#1 status post right distal clavicle resection. Awaiting pathology results. Reason For Visit: SEPSIS,POSSIBLE SEPTIC JOINT Physical Exam Vital Signs: Temp Pulse Resp BP Pulse Ox 97.8 F 81 20 150/100 H 94 10/16/18 15:44 10/16/18 19:00 10/16/18 15:44 10/16/18 15:44 10/16/18 15:44 Intake & Output 10/15/18 10/16/18 10/17/18 06:59 06:59 06:59 Intake Total 894 905 915 Output Total 0 445 200 Balance 894 460 715 Weight 98 kg 96.3 kg Results Laboratory Results: 10/15/18 04:20 10/15/18 06:08 10/12/18 22:55 Troponin I < 0.012 Impressions: Chest X-Ray 10/12/18 22:33 IMPRESSION: No acute cardiopulmonary findings. Shoulder X-Ray 10/12/18 22:33 IMPRESSION: No acute findings. Upper Extremity CT 10/13/18 00:03 IMPRESSION: No acute findings. Upper Extremity MRI 10/13/18 03:09 IMPRESSION: Ruptured long head biceps tendon attachment with superior labral tear. Fluid throughout the subacromial/subdeltoid bursa. Fluid in the AC joint, question AC separation Mild tendinopathy distal supra and infraspinatus tendons Report called to emergency room attending physician Assessment and Plan - Diagnosis (1) Cellulitis of shoulder Is this a current diagnosis for this admission?: Yes Plan: POD#1 status post right distal clavicle resection. Awaiting pathology results. Cellulitis vs a beginning or early septic joint that warrants IV antibiotics for now Continue IV vancomycin and Zosyn Ortho consulted Continue RUE sling Patient states Oxy-IR and dilaudid regimen have not controlled his pain. Switch Oxy-IR to MS Contin SR, will keep IV dilaudid for breakthrough pain (2) ESRD (end stage renal disease) Is this a current diagnosis for this admission?: Yes Plan: PMH ESRD Followed by Dr. Waller Currently receiving HD while inpatient (3) IDDM (insulin dependent diabetes mellitus) Is this a current diagnosis for this admission?: Yes Plan: Hgb 5.3% Diet control No need for insulin at this time (4) CAD (coronary artery disease) Is this a current diagnosis for this admission?: Yes Plan: PMH CAD The patient does not take ASA or statin at home History of multiple cardiac stents Will initiate baby ASA and statin - Time Time Spent with patient: 15-24 minutes Medications reviewed and adjusted accordingly: Yes Anticipated discharge: Home - Inpatient Certification Based on my medical assessment, after consideration of the patient's comorbidities, presenting symptoms, or acuity I expect that the services needed warrant INPATIENT care.: Yes I certify that my determination is in accordance with my understanding of Medicare's requirements for reasonable and necessary INPATIENT services [42 CFR 412.3e].: Yes Medical Necessity: Need for IV Antibiotics, Risk of Complication if Not Cared For in Hospital
[2018-10-16] MEDS: PHARMACY COMMUNICATION ORDER MC SCH (21:15)
[2018-10-17] MEDS: HYDROMORPHONE HCL INJ/PF 2 MG/ML AMPULE IV PRN (02:59)
[2018-10-17] MEDS: MAGNESIUM HYDROXIDE SUSP 30 ML UDCUP PO PRN ×2 (03:04→21:30)
[2018-10-17 04:53] LABS: ARTERIAL BLOOD BASE EXCESS -1.2 mmol/L; ARTERIAL BLOOD H2CO3 1.47 mmol/L (1.05-1.35); ARTERIAL BLOOD HCO3 25.1 mmol/L (20-24); ARTERIAL BLOOD O2 SATURATION 92.1 % (94-98); ARTERIAL BLOOD PCO2 48.7 mmHg (35-45); ARTERIAL BLOOD PH 7.33 (7.35-7.45); ARTERIAL BLOOD PO2 67.6 mmHg (80-100); ARTERIAL BLOOD TOTAL CO2 26.6 mmol/L (23-27)
[2018-10-17 04:54] LABS: ARTERIAL BLOOD FIO2 ROOM AIR
[2018-10-17] MEDS ORDERED: NORMAL SALINE 1000 ML 1,000 ML IV PRN (05:00)
[2018-10-17] MEDS: PIPERACILLIN SODIUM/TAZOBACTAM 2.25 GM in NORMAL SALINE 50 ML IV SCH ×3 (05:20→21:30)
[2018-10-17] MEDS ORDERED: IPRATROPIUM/ALBUTEROL 0.5-2.5 MG/3 ML AMPUL NEB PRN (05:27)
[2018-10-17] MEDS ORDERED: LACTULOSE SYRUP 20 GM/30 ML UDCUP PO ONE (05:28)
--- NOTE | 2018-10-17 06:31 | RADIOLOGY REPORT (SQ) ---
EXAM DESCRIPTION: XR CHEST 1 VIEW COMPLETED DATE/TME: 10/17/2018 00:00 CLINICAL HISTORY: 63 years, Male, increase shortness of breathe COMPARISON: 10/12/2018 chest NUMBER OF VIEWS: 1 TECHNIQUE: Portable chest LIMITATIONS: None. FINDINGS: Heart size is normal. Scarring in the left lung base. Lungs are otherwise clear. No pneumothorax IMPRESSION: No acute cardiopulmonary process copyright 2010 [employer]- All Rights Reserved
[2018-10-17 06:44] LABS: ABSOLUTE BASOPHILS # (AUTO) 0.1 10^3/uL (0.0-0.2); ABSOLUTE EOSINOPHILS # (AUTO) 0.2 10^3/uL (0.0-0.6); ABSOLUTE LYMPHOCYTES (AUTO) 1.7 10^3/uL (0.5-4.7); ABSOLUTE MONOCYTES (AUTO) 1.1 10^3/uL (0.1-1.4); ABSOLUTE NEUT (AUTO) 4.5 10^3/uL (1.7-8.2); BASOPHILS % (AUTO) 0.9 % (0-2); EOSINOPHILS % (AUTO) 2.7 % (0-6); HEMATOCRIT 34.8 % (37.9-51.0); HEMOGLOBIN 11.9 g/dL (13.5-17.0); LYMPHOCYTES % (AUTO) 22.6 % (13-45); MEAN CORPUSCULAR HEMOGLOBIN 32.2 pg (27.0-33.4); MEAN CORPUSCULAR HGB CONC 34.2 g/dL (32.0-36.0); MEAN CORPUSCULAR VOLUME 94 fl (80-97); MONOCYTES % (AUTO) 14.6 % (3-13); PLATELET COUNT 254 10^3/uL (150-450); RED BLOOD COUNT 3.69 10^6/uL (4.35-5.55); RED CELL DISTRIBUTION WIDTH 14.3 % (11.5-14.0); SEGMENTED NEUTROPHILS % (AUTO) 59.2 % (42-78); TOTAL CELLS COUNTED % (AUTO) 100 %; WHITE BLOOD COUNT 7.6 10^3/uL (4.0-10.5)
[2018-10-17 07:03] LABS: ANION GAP 18 (5-19); BLOOD UREA NITROGEN 47 mg/dL (7-20); CALCIUM 8.5 mg/dL (8.4-10.2); CARBON DIOXIDE 24 mmol/L (22-30); CHLORIDE 98 mmol/L (98-107); GLUCOSE 96 mg/dL (75-110); SODIUM 140.3 mmol/L (137-145)
[2018-10-17 07:10] LABS: VANCOMYCIN,TROUGH 15.4 ug/mL (5.0-20.0)
[2018-10-17 07:14] LABS: CREATINE KINASE MB 1.34 ng/mL (<4.55)
[2018-10-17 07:27] LABS: TROPONIN I 0.179 ng/mL
--- NOTE | 2018-10-17 07:30 | PDOC PROGRESS REPORT ---
Subjective Progress Note for:: 10/17/18 Reason For Visit: SEPSIS,POSSIBLE SEPTIC JOINT 63-year-old white male dialysis dependent who is now postop day 2 status post right distal clavicle resection. Patient continues to complain of unrelenting pain in the right shoulder unchanged from preop. He continues to use shoulder immobilizer. Cultures remain no growth so far. Physical Exam Vital Signs: Temp Pulse Resp BP Pulse Ox 36.4 C 82 20 161/88 H 92 10/17/18 03:57 10/17/18 07:00 10/17/18 03:57 10/17/18 03:57 10/17/18 03:57 Intake & Output 10/16/18 10/17/18 10/18/18 06:59 06:59 06:59 Intake Total 905 1205 Output Total 445 350 Balance 460 855 Weight 96.3 kg 97.4 kg Physical Exam: Overweight middle-aged white male sitting up in bed in minor distress shoulder immobilizer in place. Dressing has minor drainage which is unchanged from yesterday. General appearance: PRESENT: mild distress, obese, well-nourished Head exam: PRESENT: normocephalic Respiratory exam: PRESENT: unlabored Cardiovascular exam: PRESENT: RRR Vascular exam: PRESENT: normal capillary refill GI/Abdominal exam: PRESENT: soft Rectal exam: PRESENT: deferred Musculoskeletal exam: PRESENT: other - Right shoulder dressing with some minor drainage unchanged from yesterday. Distal neurovascular examination the hand is intact. Neurological exam: PRESENT: alert, awake, oriented to person, oriented to place, oriented to time, oriented to situation. ABSENT: motor sensory deficit Skin exam: PRESENT: dry, intact, warm. ABSENT: cyanosis, rash Results Laboratory Results: 10/17/18 05:45 10/17/18 05:45 10/17/18 10/17/18 10/17/18 04:45 05:45 05:45 WBC 7.6 RBC 3.69 L Hgb 11.9 L Hct 34.8 L MCV 94 MCH 32.2 MCHC 34.2 RDW 14.3 H Plt Count 254 Seg Neutrophils % 59.2 Lymphocytes % 22.6 Monocytes % 14.6 H Eosinophils % 2.7 Basophils % 0.9 Absolute Neutrophils 4.5 Absolute Lymphocytes 1.7 Absolute Monocytes 1.1 Absolute Eosinophils 0.2 Absolute Basophils 0.1 Carbonic Acid 1.47 H HCO3/H2CO3 Ratio 17:1 ABG pH 7.33 L ABG pCO2 48.7 H ABG pO2 67.6 L ABG HCO3 25.1 H ABG O2 Saturation 92.1 L ABG Base Excess -1.2 FiO2 ROOM AIR Sodium 140.3 Potassium 4.0 Chloride 98 Carbon Dioxide 24 Anion Gap 18 BUN 47 H Creatinine 11.40 H Est GFR ( Amer) 5 L Est GFR (Non-Af Amer) 5 L Glucose 96 Calcium 8.5 10/12/18 10/17/18 22:55 05:45 Creatine Kinase 73 Troponin I < 0.012 Impressions: Shoulder X-Ray 10/12/18 22:33 IMPRESSION: No acute findings. Upper Extremity CT 10/13/18 00:03 IMPRESSION: No acute findings. Upper Extremity MRI 10/13/18 03:09 IMPRESSION: Ruptured long head biceps tendon attachment with superior labral tear. Fluid throughout the subacromial/subdeltoid bursa. Fluid in the AC joint, question AC separation Mild tendinopathy distal supra and infraspinatus tendons Report called to emergency room attending physician Chest X-Ray 10/17/18 00:00 IMPRESSION: No acute cardiopulmonary process copyright 2011 [employer]- All Rights Reserved Status: Imported from PACS Assessment & Plan - Diagnosis (1) Cellulitis of shoulder Is this a current diagnosis for this admission?: Yes Plan: Cultures and pathology pending from right shoulder. In the interim continued observation - Time Time Spent with patient: 15-24 minutes Anticipated discharge: Other Within: Other
--- NOTE | 2018-10-17 07:46 | EKG REPORT ---
SEVERITY:- ABNORMAL ECG - SINUS RHYTHM ABNORMAL T, CONSIDER ISCHEMIA, ANTERIOR LEADS, NEW SINCE 10/15/18 BORDERLINE PROLONGED QT INTERVAL : Confirmed by: Jacob Kirby MD 17-Oct-2018 07:45:43
[2018-10-17] MEDS: IPRATROPIUM/ALBUTEROL 0.5-2.5 MG/3 ML AMPUL NEB SCH ×3 (07:55→20:39)
[2018-10-17] MEDS: SEVELAMER HCL 800 MG TABLET PO SCH ×4 (07:57→18:37)
[2018-10-17] MEDS ORDERED: ASPIRIN 325 MG TABLET PO ONE (08:30)
[2018-10-17] MEDS: LIDOCAINE 5% (700 MG) TRANSDERMAL ADH..PATCH TP SCH (09:10)
[2018-10-17] MEDS: HEPARIN SOD (PORCINE) 5,000 UNIT/ML 1 ML SYRINGE SUBCUT SCH ×2 (09:10→21:29)
[2018-10-17] MEDS: NICOTINE 21 MG/24 HR PATCH.TD24 TD SCH (09:11)
[2018-10-17] MEDS: DIAZEPAM 5 MG TABLET PO SCH ×2 (09:11→21:28)
[2018-10-17] MEDS: POLYETHYLENE GLYCOL 3350 POWDER 17 GM/1 PACKET PO SCH (09:11)
[2018-10-17] MEDS: SENNOSIDES/DOCUSATE 8.6-50 MG 1 EACH TABLET PO SCH ×2 (09:12→18:37)
[2018-10-17] MEDS: MORPHINE SULFATE SR 15 MG TABLET PO SCH ×2 (09:12→21:28)
--- NOTE | 2018-10-17 11:54 | RADIOLOGY REPORT (SQ) ---
EXAM DESCRIPTION: CT CHEST WITH COMPLETED DATE/TIME: 10/17/2018 11:17 am REASON FOR STUDY: chest pain COMPARISON: 02/21/2017 TECHNIQUE: CT scan of the chest performed using helical scanning technique with dynamic intravenous contrast injection. Images reviewed with lung, soft tissue and bone windows. Reconstructed coronal and sagittal MPR and MIP images reviewed. All images stored on PACS. All CT scanners at this facility use dose modulation, iterative reconstruction, and/or weight based d osing when appropriate to reduce radiation dose to as low as reasonably achievable (ALARA). [facility]: Dose Right [facility]: CareDose [facility]: Dose Right [facility]: Teradose 4D [facility]: Online Agility CONTRAST TYPE AND DOSE: contrast/concentration: Isovue 350.00 mg/ml; Total Contrast Delivered: 80.0 ml; Total Saline Delivered: 55.0 ml RENAL FUNCTION: BUN 47, CREATININE 11.4. PATIENT SCHEDULED FOR SAME-DAY DIALYSIS. RADIATION DOSE: CT Rad equipment meets quality standard of care and radiation dose reduction techniq ues were employed. CTDIvol: 19.6 mGy. DLP: 761 mGy-cm. . LIMITATIONS: None. FINDINGS: LUNGS AND PLEURA: Unchanged calcified right middle lobe nodule. Minimal linear basilar sc arring versus atelectasis. No new airspace disease. No pleural effusion or pneumothorax. No new tomas spicious nodules or masses. HILAR AND MEDIASTINAL STRUCTURES: No discrete adenopathy. Unchanged pretracheal node. HEART AND VASCULAR STRUCTURES: Scattered coronary atherosclerosis. Normal heart size. No significan t pericardial effusion. HARDWARE: None in the chest. UPPER ABDOMEN: Partially visualized right renal cyst, stable. THYROID AND OTHER SOFT TISSUES: No masses. No adenopathy. BONES: No significant finding. OTHER: No other significant finding. IMPRESSION: No evidence of acute intrathoracic process. Three-vessel coronary atherosclerosis. TECHNICAL DOCUMENTATION: JOB ID: [id number] Quality ID # [id number]: Final reports with documentation of one or more dose reduction techniques (e.g., Au tomated exposure control, adjustment of the mA and/or kV according to patient size, use of iterative reconstruction technique) 2010 [employer]- All Rights Reserved Reading location - IP/workstation name: [facility]
[2018-10-17 13:47] LABS: CREATINE KINASE MB 1.36 ng/mL (<4.55); TROPONIN I 0.149 ng/mL
--- NOTE | 2018-10-17 15:11 | PDOC PROGRESS REPORT ---
Subjective Progress Note for:: 10/17/18 Subjective:: 63 y.o. M with a PMH of IDDM, ESRD-on MWF dialysis, hypertension, CAD with 2 prior stents, osteoarthritis and history of CVA who presented with acute right shoulder pain. CT of the shoulder was done which was unremarkable. MRI was pursued which showed ruptured bicep tendon attachment with superior labral tear, fluid throughout the subacromial/subdeltoid bursa, fluid collection in the AC joint (possible separation). Mild tendinopathy to the distal supra and infrasp inatous tendons. He was admitted for cellulitis vs a beginning or early septic joint. POD#2 status post right distal clavicle resection. Awaiting pathology results. Around 0500 this morning, patient began experiencing midsternal/epigastric chest pain. Patient states that the pain is worse when coughing and exacerbated with deep inhalation. Stat EKG revealed NSR, inverted T waves in leads V1-3, this is a new EKG change. Cardiac enzymes were done, troponin elevated to 0.179. Patient was given 325 mg aspirin p.o. Cardiology was consulted. Dr. Ryan at bedside to evaluate the patient, states he is concerned about possible pericarditis. CT chest with contrast completed, results WNL. Plan for echocardiogram to evaluate for pericardial effusion. Reason For Visit: SEPSIS,POSSIBLE SEPTIC JOINT Physical Exam Vital Signs: Temp Pulse Resp BP Pulse Ox 97.6 F 84 16 144/100 H 92 10/17/18 11:52 10/17/18 14:00 10/17/18 14:00 10/17/18 11:52 10/17/18 14:00 Intake & Output 10/16/18 10/17/18 10/18/18 06:59 06:59 06:59 Intake Total 905 1205 340 Output Total 445 350 0 Balance 460 855 340 Weight 96.3 kg 97.4 kg General appearance: PRESENT: obese Eye exam: PRESENT: conjunctiva pink, PERRLA Mouth exam: PRESENT: moist, tongue midline Teeth exam: PRESENT: poor dentation Neck exam: PRESENT: full ROM Respiratory exam: PRESENT: chest wall tenderness - EPIGASTRIC AREA, clear to auscultation melecio, symmetrical, unlabored Cardiovascular exam: PRESENT: RRR Pulses: PRESENT: normal radial pulses GI/Abdominal exam: PRESENT: normal bowel sounds, soft, tenderness - EPIGASTRIC AREA Rectal exam: PRESENT: deferred Extremities exam: ABSENT: full ROM - RUE LIMITED ROM Musculoskeletal exam: PRESENT: ambulatory. ABSENT: full ROM, normal inspection Neurological exam: PRESENT: alert, awake, oriented to person, oriented to place, oriented to time, oriented to situation Skin exam: PRESENT: dry, intact, normal color Results Laboratory Results: 10/17/18 05:45 10/17/18 05:45 10/17/18 10/17/18 10/17/18 04:45 05:45 05:45 WBC 7.6 RBC 3.69 L Hgb 11.9 L Hct 34.8 L MCV 94 MCH 32.2 MCHC 34.2 RDW 14.3 H Plt Count 254 Seg Neutrophils % 59.2 Lymphocytes % 22.6 Monocytes % 14.6 H Eosinophils % 2.7 Basophils % 0.9 Absolute Neutrophils 4.5 Absolute Lymphocytes 1.7 Absolute Monocytes 1.1 Absolute Eosinophils 0.2 Absolute Basophils 0.1 Carbonic Acid 1.47 H HCO3/H2CO3 Ratio 17:1 ABG pH 7.33 L ABG pCO2 48.7 H ABG pO2 67.6 L ABG HCO3 25.1 H ABG O2 Saturation 92.1 L ABG Base Excess -1.2 FiO2 ROOM AIR Sodium 140.3 Potassium 4.0 Chloride 98 Carbon Dioxide 24 Anion Gap 18 BUN 47 H Creatinine 11.40 H Est GFR ( Amer) 5 L Est GFR (Non-Af Amer) 5 L Glucose 96 Calcium 8.5 10/12/18 10/17/18 10/17/18 22:55 05:45 05:45 Creatine Kinase 73 CK-MB (CK-2) 1.34 Troponin I < 0.012 0.179 10/17/18 10/17/18 12:20 12:20 Creatine Kinase 75 CK-MB (CK-2) 1.36 Troponin I 0.149 Impressions: Shoulder X-Ray 10/12/18 22:33 IMPRESSION: No acute findings. Upper Extremity CT 10/13/18 00:03 IMPRESSION: No acute findings. Upper Extremity MRI 10/13/18 03:09 IMPRESSION: Ruptured long head biceps tendon attachment with superior labral te ar. Fluid throughout the subacromial/subdeltoid bursa. Fluid in the AC joint, question AC separation Mild tendinopathy distal supra and infraspinatus tendons Report called to emergency room attending physician Chest CT 10/17/18 00:00 IMPRESSION: No evidence of acute intrathoracic process. Three-vessel coronary atherosclerosis. Chest X-Ray 10/17/18 00:00 IMPRESSION: No acute cardiopulmonary process copyright 2011 [employer]- All Rights Reserved Status: Imported from PACS Assessment and Plan - Diagnosis (1) Cellulitis of shoulder Is this a current diagnosis for this admission?: Yes (2) ESRD (end stage renal disease) Is this a current diagnosis for this admission?: Yes (3) IDDM (insulin dependent diabetes mellitus) Is this a current diagnosis for this admission?: Yes (4) CAD (coronary artery disease) Is this a current diagnosis for this admission?: Yes (5) Chest pain Is this a current diagnosis for this admission?: Yes Plan: Midsternal/epigastric chest pain, acute onset 0500 this a.m. Exacerbated with coughing and deep inhalation Patient states he has been experiencing chest pain on and off for "many years" EKG shows NSR, T wave inversion in leads V1-3, this is a new finding Cardiology consulted, recommend CT chest and echocardiogram to evaluate for pericardial effusion/pericarditis 325 mg aspirin p.o. x1 - Time Time Spent with patient: 15-24 minutes Medications reviewed and adjusted accordingly: Yes Anticipated discharge: Home - Inpatient Certification Based on my medical assessment, after consideration of the patient's comorbidities, presenting symptoms, or acuity I expect that the services needed warrant INPATIENT care.: Yes I certify that my determination is in accordance with my understanding of Medicare's requirements for reasonable and necessary INPATIENT services [42 CFR 412.3e].: Yes Medical Necessity: Need For Continuous Telemetry Monitoring, Risk of Complication if Not Cared For in Hospital
[2018-10-17] MEDS: VANCOMYCIN HCL 750 MG in DEXTROSE 5%-WATER 250 ML IV SCH (18:37)
[2018-10-17 20:52] LABS: CREATINE KINASE MB 1.04 ng/mL (<4.55); TROPONIN I 0.121 ng/mL
[2018-10-17] MEDS: PHARMACY COMMUNICATION ORDER MC SCH (21:20)
--- NOTE | 2018-10-17 21:27 | PDOC PROGRESS REPORT ---
Subjective Progress Note for:: 10/17/18 Subjective:: Patient was seen under going dialysis with no complications. Patient at the time denies increased SOB, or palpitations. He claims that his shoulder feels better. He does claim of chest pain pain when he breaths or cough. The pain then radiates around the lower part of his right rib cage. It is reproducible upon palpitation. Reason For Visit: SEPSIS,POSSIBLE SEPTIC JOINT Physical Exam Vital Signs: Temp Pulse Resp BP Pulse Ox 97.6 F 94 16 144/100 H 92 10/17/18 11:52 10/17/18 19:00 10/17/18 14:00 10/17/18 11:52 10/17/18 14:00 Intake & Output 10/16/18 10/17/18 10/18/18 06:59 06:59 06:59 Intake Total 905 1205 948 Output Total 291 838 5833 Balance 460 915 -2552 Weight 96.3 kg 97.4 kg General appearance: PRESENT: no acute distress, well-developed, well-nourished Mouth exam: PRESENT: moist, neck supple Neck exam: PRESENT: tracheal deviation. ABSENT: JVD Respiratory exam: PRESENT: clear to auscultation melecio. ABSENT: accessory muscle use, crackles, rales, rhonchi, tachypnea, wheezes Cardiovascular exam: PRESENT: RRR, +S1, +S2 Extremities exam: ABSENT: pedal edema, +1 edema, +2 edema Neurological exam: PRESENT: alert, awake, oriented to person, oriented to place, oriented to time, oriented to situation Psychiatric exam: PRESENT: appropriate affect, normal mood Skin exam: PRESENT: dry, intact, warm Results Laboratory Results: 10/17/18 05:45 10/17/18 05:45 10/17/18 10/17/18 10/17/18 04:45 05:45 05:45 WBC 7.6 RBC 3.69 L Hgb 11.9 L Hct 34.8 L MCV 94 MCH 32.2 MCHC 34.2 RDW 14.3 H Plt Count 254 Seg Neutrophils % 59.2 Lymphocytes % 22.6 Monocytes % 14.6 H Eosinophils % 2.7 Basophils % 0.9 Absolute Neutrophils 4.5 Absolute Lymphocytes 1.7 Absolute Monocytes 1.1 Absolute Eosinophils 0.2 Absolute Basophils 0.1 Carbonic Acid 1.47 H HCO3/H2CO3 Ratio 17:1 ABG pH 7.33 L ABG pCO2 48.7 H ABG pO2 67.6 L ABG HCO3 25.1 H ABG O2 Saturation 92.1 L ABG Base Excess -1.2 FiO2 ROOM AIR Sodium 140.3 Potassium 4.0 Chloride 98 Carbon Dioxide 24 Anion Gap 18 BUN 47 H Creatinine 11.40 H Est GFR ( Amer) 5 L Est GFR (Non-Af Amer) 5 L Glucose 96 Calcium 8.5 10/12/18 10/17/18 10/17/18 22:55 05:45 05:45 Creatine Kinase 73 CK-MB (CK-2) 1.34 Troponin I < 0.012 0.179 10/17/18 10/17/18 10/17/18 12:20 12:20 19:50 Creatine Kinase 75 68 CK-MB (CK-2) 1.36 Troponin I 0.149 10/17/18 19:50 Creatine Kinase CK-MB (CK-2) 1.04 Troponin I 0.121 Impressions: Shoulder X-Ray 10/12/18 22:33 IMPRESSION: No acute findings. Upper Extremity CT 10/13/18 00:03 IMPRESSION: No acute findings. Upper Extremity MRI 10/13/18 03:09 IMPRESSION: Ruptured long head biceps tendon attachment with superior labral tear. Fluid throughout the subacromial/subdeltoid bursa. Fluid in the AC joint, question AC separation Mild tendinopathy distal supra and infraspinatus tendons Report called to emergency room attending physician Chest CT 10/17/18 00:00 IMPRESSION: No evidence of acute intrathoracic process. Three-vessel coronary atherosclerosis. Chest X-Ray 10/17/18 00:00 IMPRESSION: No acute cardiopulmonary process copyright 2011 [employer]- All Rights Reserved Assessment & Plan - Diagnosis (1) ESRD (end stage renal disease) Is this a current diagnosis for this admission?: Yes Plan: Patient was seen under going dialysis with no complications. Patient at the time denies chest pain, SOB, or palpitations. Orders and labs were discussed with treating nurse. Looking to remove 3 to 4L with dialysis. (2) Chest pain Is this a current diagnosis for this admission?: Yes Plan: Per cardiology, troponin is trending down. (3) Hypertension Is this a current diagnosis for this admission?: Yes Plan: controlled abd improved with dialysis (4) IDDM (insulin dependent diabetes mellitus) Is this a current diagnosis for this admission?: Yes (5) Right shoulder pain Qualifiers: Chronicity: acute Qualified Code(s): M25.511 - Pain in right shoulder Plan: per ortho (6) Cellulitis of shoulder Is this a current diagnosis for this admission?: Yes (7) Anemia in chronic kidney disease Is this a current diagnosis for this admission?: Yes Plan: will give procrit with dialysis
--- NOTE | 2018-10-17 22:20 | XCELERA REPORT ---
[address] [address] Transthoracic Echocardiogram Report Name: GET BURGESS Age: 63 yrs Gender: Male : 1955 Patient Status: Inpatient Patient Location: [address] [place] [address] Study Date: 10/17/2018 07:15 PM Height: 68 in Weight: 214 lb BSA: 2.1 m2 Procedure: A two-dimensional transthoracic echocardiogram with color flow Doppler was performed. The study was technically difficult with many images being suboptimal in quality. Study Quality: Poor. Images were not obtained from all of the standard acoustic windows due to the limited scope of the study. Reason For Study: Pericarditis History: Pericarditis. Ordering Physician: CHARMAINE REILLY Performed By: Susan Irizarry Interpretation Summary No True apical 2 chamber views obtained.Hence cannot comment on the apical anterior , the basal anterior, the basal inferior and apical inferior riley.The mid anterior , the mid inferior and the rest of the LV riley contract normally. .Normal LVEF is normal and is greater than 65% in the limited views. The left ventricle is normal in size. There is mild concentric left ventricular hypertrophy. Doppler measurements suggest impaired left ventricular relaxation, which is associated with grade I/IV or mild diastolic dysfunction There is no thrombus. Cannot assess ASD,VSD or PFO. The right ventricle is not well visualized secondary to technical limitations Right atrium not well visualized secondary to technical limitations The left atrial size is normal. There is no evidence of mitral valve prolapse. There is no vegetation seen on the mitral valve. There is no mitral valve stenosis. There is no mitral regurgitation noted. There is no aortic valvular vegetation. There is mild aortic stenosis There is a peak gradient of 25 mm of Hg. No hemodynamically significant valvular aortic stenosis. There is no LVOT obstruction. No aortic regurgitation is present. There is no tricuspid stenosis. There is a trace amount of tricuspid regurgitation There is mild pulmonary hypertension by echo RVSP is 32 to 37 mm of Hg , with RA mean of 5 to 10. The pulmonic valve is not well visualized. The aortic root is not well visualized. The inferior vena cava appeared normal and decreased > 50% with respiration (RAP 5-10 mmHg) The inferior vena cava was not well visualized Cannot exclude Trace pericardial effusion. MMode/2D Measurements & Calculations RVDd: 2.4 cm LVIDd: 5.0 cm FS: 41.3 % Ao root diam: 2.5 cm IVSd: 1.2 cm LVIDs: 2.9 cm EDV(Teich): 116.7 ml Ao root area: 5.0 cm2 LVPWd: 1.2 cm ESV(Teich): 32.8 ml LA dimension: 3.9 cm EF(Teich): 71.9 % LVOT diam: 2.0 cm LVOT area: 3.1 cm2 Doppler Measurements & Calculations MV E max sola: MV P1/2t max sola: Ao V2 max: LV V1 max P.6 cm/sec 95.0 cm/sec 246.9 cm/sec 5.6 mmHg MV A max sola: MV P1/2t: 41.4 msec Ao max PG: LV V1 max: 88.8 cm/sec MVA(P1/2t): 5.3 cm2 24.4 mmHg 118.5 cm/sec MV E/A: 0.77 MV dec slope: TEMO(V,D): 1.5 cm2 672.2 cm/sec2 MV dec time: 0.19 sec PA V2 max: TR max sola: MV P1/2t-pr_phl: 118.1 cm/sec 259.3 cm/sec 41.4 msec PA max P.6 mmHgTR max P.9 mmHg Left Ventricle The left ventricle is normal in size. There is mild concentric left ventricular hypertrophy. No True apical 2 chamber views obtained.Hence cannot comment on the apical anterior , the basal anterior, the basal inferior and apical inferior riley.The mid anterior , the mid inferior and the rest of the LV riley contract normally. .Normal LVEF is normal and is greater than 65% in the limited views. Doppler measurements suggest impaired left ventricular relaxation, which is associated with grade I/IV or mild diastolic dysfunction. There is no thrombus. Cannot assess ASD,VSD or PFO. Right Ventricle The right ventricle is not well visualized secondary to technical limitations. Atria Right atrium not well visualized secondary to technical limitations. The left atrial size is normal. Mitral Valve There is no evidence of mitral valve prolapse. There is no vegetation seen on the mitral valve. There is no mitral valve stenosis. There is no mitral regurgitation noted. Aortic Valve There is no aortic valvular vegetation. There is mild aortic stenosis. There is a peak gradient of 25 mm of Hg. No hemodynamically significant valvular aortic stenosis. There is no LVOT obstruction. No aortic regurgitation is present. Tricuspid Valve There is no tricuspid stenosis. There is a trace amount of tricuspid regurgitation. There is mild pulmonary hypertension by echo. RVSP is 32 to 37 mm of Hg , with RA mean of 5 to 10. Pulmonic Valve The pulmonic valve is not well visualized. Great Vessels The aortic root is not well visualized. The inferior vena cava appeared normal and decreased > 50% with respiration (RAP 5-10 mmHg). The inferior vena cava was not well visualized. Effusions Cannot exclude Trace pericardial effusion. : CHARMAINE REILLY > Charmaine Reilly
[2018-10-18] MEDS: IPRATROPIUM/ALBUTEROL 0.5-2.5 MG/3 ML AMPUL NEB SCH ×4 (02:27→19:57)
[2018-10-18] MEDS: HYDROMORPHONE HCL INJ/PF 2 MG/ML AMPULE IV PRN ×3 (06:34→20:40)
[2018-10-18] MEDS: PIPERACILLIN SODIUM/TAZOBACTAM 2.25 GM in NORMAL SALINE 50 ML IV SCH ×3 (06:34→22:08)
--- NOTE | 2018-10-18 06:58 | PDOC PROGRESS REPORT ---
Subjective Progress Note for:: 10/18/18 Reason For Visit: SEPSIS,POSSIBLE SEPTIC JOINT 63-year-old white male now postop day 3 status post right distal clavicle resection. Patient continues to have significant pain which is unrelieved from preop. Physical Exam Vital Signs: Temp Pulse Resp BP Pulse Ox 36.4 C 94 16 146/93 H 98 10/18/18 03:18 10/18/18 03:18 10/18/18 03:18 10/18/18 03:18 10/18/18 03:18 Intake & Output 10/16/18 10/17/18 10/18/18 06:59 06:59 06:59 Intake Total 905 1205 998 Output Total 612 795 3576 Balance 460 855 -2502 Weight 96.3 kg 97.4 kg 94.8 kg Physical Exam: Overweight middle-aged white male sitting up in bed in minor to moderate distress. Respiratory exam: PRESENT: unlabored Pulses: PRESENT: normal radial pulses Vascular exam: PRESENT: normal capillary refill GI/Abdominal exam: PRESENT: soft Rectal exam: PRESENT: deferred Extremities exam: PRESENT: other - Right shoulder incision is healing uneventfully with some minor ecchymosis but no drainage erythema or induration. He continues to be markedly tender to palpation over the distal end of the clavicle in the region of the incision. He does not seem to have pain with passive range of motion of the shoulder. The shoulder sling remains in place. Distal neurovascular exam is examination of the hand is intact. Neurological exam: PRESENT: alert, awake, oriented to person, oriented to place, oriented to time, oriented to situation. ABSENT: motor sensory deficit Psychiatric exam: PRESENT: appropriate affect, normal mood. ABSENT: homicidal ideation, suicidal ideation Skin exam: PRESENT: dry, intact, warm. ABSENT: cyanosis, rash Results Laboratory Results: 10/17/18 05:45 10/17/18 05:45 10/17/18 05:45 Sodium 140.3 Potassium 4.0 Chloride 98 Carbon Dioxide 24 Anion Gap 18 BUN 47 H Creatinine 11.40 H Est GFR ( Amer) 5 L Est GFR (Non-Af Amer) 5 L Glucose 96 Calcium 8.5 10/12/18 10/17/18 10/17/18 22:55 05:45 05:45 Creatine Kinase 73 CK-MB (CK-2) 1.34 Troponin I < 0.012 0.179 10/17/18 10/17/18 10/17/18 12:20 12:20 19:50 Creatine Kinase 75 68 CK-MB (CK-2) 1.36 Troponin I 0.149 10/17/18 10/18/18 19:50 04:22 Creatine Kinase CK-MB (CK-2) 1.04 Troponin I 0.121 0.105 Impressions: Shoulder X-Ray 10/12/18 22:33 IMPRESSION: No acute findings. Upper Extremity CT 10/13/18 00:03 IMPRESSION: No acute findings. Upper Extremity MRI 10/13/18 03:09 IMPRESSION: Ruptured long head biceps tendon attachment with superior labral tear. Fluid throughout the subacromial/subdeltoid bursa. Fluid in the AC joint, question AC separation Mild tendinopathy distal supra and infraspinatus tendons Report called to emergency room attending physician Chest CT 10/17/18 00:00 IMPRESSION: No evidence of acute intrathoracic process. Three-vessel coronary atherosclerosis. Chest X-Ray 10/17/18 00:00 IMPRESSION: No acute cardiopulmonary process copyright 2011 [employer]- All Rights Reserved Status: Imported from PACS Assessment & Plan - Diagnosis (1) Cellulitis of shoulder Is this a current diagnosis for this admission?: Yes (2) Right shoulder pain Qualifiers: Chronicity: acute Qualified Code(s): M25.511 - Pain in right shoulder Is this a current diagnosis for this admission?: Yes Plan: At this point the patient had a distal clavicle resection and cultures remain no growth so far. He should not have an inflammatory arthropathy with the distal clavicle gone and he does not appear to have an infectious etiology. This leaves me at a loss to explain his ongoing pain. I requested Dr. andrea lay eyes on the patient when he is available to see if he has any further thoughts. - Time Time Spent with patient: 15-24 minutes Anticipated discharge: Other Within: Other
--- NOTE | 2018-10-18 07:50 | EKG REPORT ---
SEVERITY:- ABNORMAL ECG - SINUS RHYTHM ABNORMAL T, CONSIDER ISCHEMIA, ANTERIOR LEADS BORDERLINE PROLONGED QT INTERVAL : Confirmed by: Jacob Kirby MD 18-Oct-2018 07:50:04
[2018-10-18 09:48] LABS: HEMATOCRIT 36.4 % (37.9-51.0); HEMOGLOBIN 12.4 g/dL (13.5-17.0); MEAN CORPUSCULAR HEMOGLOBIN 32.2 pg (27.0-33.4); MEAN CORPUSCULAR HGB CONC 34.2 g/dL (32.0-36.0); MEAN CORPUSCULAR VOLUME 94 fl (80-97); PLATELET COUNT 245 10^3/uL (150-450); RED BLOOD COUNT 3.87 10^6/uL (4.35-5.55); RED CELL DISTRIBUTION WIDTH 14.6 % (11.5-14.0); WHITE BLOOD COUNT 7.2 10^3/uL (4.0-10.5)
[2018-10-18 10:03] LABS: ANION GAP 16 (5-19); BLOOD UREA NITROGEN 29 mg/dL (7-20); CALCIUM 9.2 mg/dL (8.4-10.2); CARBON DIOXIDE 27 mmol/L (22-30); CHLORIDE 97 mmol/L (98-107); GLUCOSE 127 mg/dL (75-110); POTASSIUM 3.7 mmol/L (3.6-5.0)
[2018-10-18] MEDS: SENNOSIDES/DOCUSATE 8.6-50 MG 1 EACH TABLET PO SCH ×2 (10:09→17:30)
[2018-10-18] MEDS: HEPARIN SOD (PORCINE) 5,000 UNIT/ML 1 ML SYRINGE SUBCUT SCH ×2 (10:09→22:07)
[2018-10-18] MEDS: NICOTINE 21 MG/24 HR PATCH.TD24 TD SCH (10:09)
[2018-10-18] MEDS: MORPHINE SULFATE SR 15 MG TABLET PO SCH ×2 (10:09→22:08)
[2018-10-18] MEDS: DIAZEPAM 5 MG TABLET PO SCH ×2 (10:09→22:08)
[2018-10-18] MEDS: POLYETHYLENE GLYCOL 3350 POWDER 17 GM/1 PACKET PO SCH (10:10)
[2018-10-18] MEDS: SEVELAMER HCL 800 MG TABLET PO SCH ×3 (10:10→17:30)
[2018-10-18] MEDS: LIDOCAINE 5% (700 MG) TRANSDERMAL ADH..PATCH TP SCH (10:11)
--- NOTE | 2018-10-18 20:41 | PDOC PROGRESS REPORT ---
Subjective Progress Note for:: 10/18/18 Subjective:: 63 y.o. M with a PMH of IDDM, ESRD-on MWF dialysis, hypertension, CAD with 2 prior stents, osteoarthritis and history of CVA who presented with acute right shoulder pain. CT of the shoulder was done which was unremarkable. MRI was pursued which showed ruptured bicep tendon attachment with superior labral tear, fluid throughout the subacromial/subdeltoid bursa, fluid collection in the AC joint (possible separation). Mild tendinopathy to the distal supra and infrasp inatous tendons. He was admitted for cellulitis vs a beginning or early septic joint. POD#3 status post right distal clavicle resection. Pathology results today not indicative of any significant pathology. Per Dr. Sanderson, the patient should not have such joint pain now that the distal clavicle is gone. The patient's presentation is not infectious. Asking Dr. Murphy to evaluate the patient, awaiting his recommendations. The patient reports that his arms "feels the best" it has in a while, but is still having pain in his R shoulder requiring MS Contin and PRN IV dilaudid. Reason For Visit: SEPSIS,POSSIBLE SEPTIC JOINT Physical Exam Vital Signs: Temp Pulse Resp BP Pulse Ox 98.2 F 103 H 18 140/81 H 97 10/18/18 15:02 10/18/18 15:02 10/18/18 15:02 10/18/18 15:02 10/18/18 15:02 Intake & Output 10/17/18 10/18/18 10/19/18 06:59 06:59 06:59 Intake Total 2239 158 8755 Output Total 350 3500 Balance 855 -2502 1111 Weight 97.4 kg 94.8 kg General appearance: PRESENT: no acute distress, well-developed, well-nourished Eye exam: PRESENT: conjunctiva pink, PERRLA Mouth exam: PRESENT: moist, tongue midline Respiratory exam: PRESENT: clear to auscultation melecio, symmetrical, unlabored Cardiovascular exam: PRESENT: RRR Pulses: PRESENT: normal radial pulses, normal dorsalis pedis pul Vascular exam: PRESENT: normal capillary refill GI/Abdominal exam: PRESENT: normal bowel sounds, soft. ABSENT: distended, tenderness Rectal exam: PRESENT: deferred Extremities exam: ABSENT: full ROM Musculoskeletal exam: PRESENT: ambulatory. ABSENT: full ROM, normal inspection Neurological exam: PRESENT: alert, awake, oriented to person, oriented to place, oriented to time, oriented to situation Psychiatric exam: PRESENT: appropriate affect Skin exam: PRESENT: dry, intact, normal color Additional comments: R SHOULDER SURGICAL SITE. STAPLED. C/D/I Results Laboratory Results: 10/18/18 09:12 10/18/18 09:12 10/18/18 10/18/18 09:12 09:12 WBC 7.2 RBC 3.87 L Hgb 12.4 L Hct 36.4 L MCV 94 MCH 32.2 MCHC 34.2 RDW 14.6 H Plt Count 245 Sodium 140.0 Potassium 3.7 Chloride 97 L Carbon Dioxide 27 Anion Gap 16 BUN 29 H Creatinine 8.87 H Est GFR ( Amer) 7 L Est GFR (Non-Af Amer) 6 L Glucose 127 H Calcium 9.2 Magnesium 2.4 H 10/13/18 13:34 Blood Blood Culture - Final NO GROWTH IN 5 DAYS 10/13/18 12:21 Blood Blood Culture - Final NO GROWTH IN 5 DAYS 10/12/18 10/17/18 10/17/18 22:55 05:45 05:45 Creatine Kinase 73 CK-MB (CK-2) 1.34 Troponin I < 0.012 0.179 NT-Pro-B Natriuret Pep 10/17/18 10/17/18 10/17/18 12:20 12:20 19:50 Creatine Kinase 75 68 CK-MB (CK-2) 1.36 Troponin I 0.149 NT-Pro-B Natriuret Pep 10/17/18 10/18/18 10/18/18 19:50 04:22 09:12 Creatine Kinase CK-MB (CK-2) 1.04 Troponin I 0.121 0.105 NT-Pro-B Natriuret Pep 7360 H 10/18/18 09:12 Creatine Kinase CK-MB (CK-2) Troponin I 0.094 NT-Pro-B Natriuret Pep Impressions: Shoulder X-Ray 10/12/18 22:33 IMPRESSION: No acute findings. Upper Extremity CT 10/13/18 00:03 IMPRESSION: No acute findings. Upper Extremity MRI 10/13/18 03:09 IMPRESSION: Ruptured long head biceps tendon attachment with superior labral tear. Fluid throughout the subacromial/subdeltoid bursa. Fluid in the AC joint, question AC separation Mild tendinopathy distal supra and infraspinatus tendons Report called to emergency room attending physician Chest CT 10/17/18 00:00 IMPRESSION: No evidence of acute intrathoracic process. Three-vessel coronary atherosclerosis. Chest X-Ray 10/17/18 00:00 IMPRESSION: No acute cardiopulmonary process copyright 2010 [email or web address]- All Rights Reserved Status: Imported from PACS Assessment and Plan - Diagnosis (1) Cellulitis of shoulder Is this a current diagnosis for this admission?: Yes Plan: POD#3 status post right distal clavicle resection. Awaiting pathology results. Cellulitis vs a beginning or early septic joint that warrants IV antibiotics for now Continue IV vancomycin and Zosyn Ortho consulted Continue RUE sling MS Contin SR and IV dilaudid for pain (2) ESRD (end stage renal disease) Is this a current diagnosis for this admission?: Yes Plan: PMH ESRD Followed by Dr. Waller Currently receiving HD MWF while inpatient (3) IDDM (insulin dependent diabetes mellitus) Is this a current diagnosis for this admission?: Yes Plan: Hgb 5.3% Diet control No need for insulin at this time (4) CAD (coronary artery disease) Is this a current diagnosis for this admission?: Yes Plan: PMH CAD The patient does not take ASA or statin at home History of multiple cardiac stents Continue ASA and statin (5) Chest pain Is this a current diagnosis for this admission?: Yes Plan: Midsternal/epigastric chest pain, acute onset 0500 yesterday a.m. Exacerbated with coughing and deep inhalation Patient states he has been experiencing chest pain on and off for "many years" EKG shows NSR, T wave inversion in leads V1-3, this is a new finding Troponin peaked at 0.14, no longer trending Cardiology consulted CT chest done - results normal Awaiting stress test results - Time Time Spent with patient: 15-24 minutes Medications reviewed and adjusted accordingly: Yes Anticipated discharge: Home - Inpatient Certification Based on my medical assessment, after consideration of the patient's comorbidities, presenting symptoms, or acuity I expect that the services needed warrant INPATIENT care.: Yes I certify that my determination is in accordance with my understanding of Medicare's requirements for reasonable and necessary INPATIENT services [42 CFR 412.3e].: Yes Medical Necessity: Need for IV Antibiotics
[2018-10-18] MEDS: PHARMACY COMMUNICATION ORDER MC SCH (21:59)
[2018-10-19] MEDS: IPRATROPIUM/ALBUTEROL 0.5-2.5 MG/3 ML AMPUL NEB SCH ×4 (01:54→20:16)
[2018-10-19] MEDS ORDERED: NORMAL SALINE 1000 ML 1,000 ML IV PRN (05:00)
[2018-10-19] MEDS: PIPERACILLIN SODIUM/TAZOBACTAM 2.25 GM in NORMAL SALINE 50 ML IV SCH ×3 (05:20→21:59)
[2018-10-19 08:18] LABS: ABSOLUTE BASOPHILS # (AUTO) 0.1 10^3/uL (0.0-0.2); ABSOLUTE EOSINOPHILS # (AUTO) 0.3 10^3/uL (0.0-0.6); ABSOLUTE LYMPHOCYTES (AUTO) 1.5 10^3/uL (0.5-4.7); ABSOLUTE MONOCYTES (AUTO) 1.1 10^3/uL (0.1-1.4); ABSOLUTE NEUT (AUTO) 4.6 10^3/uL (1.7-8.2); BASOPHILS % (AUTO) 0.9 % (0-2); EOSINOPHILS % (AUTO) 3.9 % (0-6); HEMATOCRIT 37.2 % (37.9-51.0); HEMOGLOBIN 12.7 g/dL (13.5-17.0); LYMPHOCYTES % (AUTO) 20.3 % (13-45); MEAN CORPUSCULAR HEMOGLOBIN 32.7 pg (27.0-33.4); MEAN CORPUSCULAR HGB CONC 34.3 g/dL (32.0-36.0); MEAN CORPUSCULAR VOLUME 95 fl (80-97); PLATELET COUNT 261 10^3/uL (150-450); RED CELL DISTRIBUTION WIDTH 14.3 % (11.5-14.0); SEGMENTED NEUTROPHILS % (AUTO) 60.9 % (42-78); TOTAL CELLS COUNTED % (AUTO) 100 %; WHITE BLOOD COUNT 7.6 10^3/uL (4.0-10.5)
[2018-10-19 08:42] LABS: BLOOD UREA NITROGEN 42 mg/dL (7-20); CALCIUM 9.5 mg/dL (8.4-10.2); GLUCOSE 84 mg/dL (75-110)
[2018-10-19 08:48] LABS: CARBON DIOXIDE 24 mmol/L (22-30); CHLORIDE 99 mmol/L (98-107); SODIUM 142.6 mmol/L (137-145)
[2018-10-19 08:50] LABS: POTASSIUM 4.8 mmol/L (3.6-5.0)
[2018-10-19 08:51] LABS: ANION GAP 20 (5-19)
[2018-10-19 08:54] LABS: VANCOMYCIN,TROUGH 18.6 ug/mL (5.0-20.0)
[2018-10-19] MEDS: SEVELAMER HCL 800 MG TABLET PO SCH ×3 (09:31→19:03)
[2018-10-19] MEDS ORDERED: REGADENOSON INJ 0.4 MG/5 ML DISP.SYRIN IV ONE (10:26)
[2018-10-19 10:34] LABS: HEPATITIS B CORE AB TOT Negative (Negative); HEPATITIS B SURFACE AB QUANT <3.1 mIU/mL (Immunity>9)
[2018-10-19] MEDS: MORPHINE SULFATE SR 15 MG TABLET PO SCH ×2 (11:10→21:51)
[2018-10-19] MEDS: SENNOSIDES/DOCUSATE 8.6-50 MG 1 EACH TABLET PO SCH ×2 (11:11→19:02)
[2018-10-19] MEDS: DIAZEPAM 5 MG TABLET PO SCH ×2 (11:13→21:52)
[2018-10-19] MEDS: LIDOCAINE 5% (700 MG) TRANSDERMAL ADH..PATCH TP SCH (11:14)
[2018-10-19] MEDS: POLYETHYLENE GLYCOL 3350 POWDER 17 GM/1 PACKET PO SCH (11:18)
[2018-10-19] MEDS: HEPARIN SOD (PORCINE) 5,000 UNIT/ML 1 ML SYRINGE SUBCUT SCH ×2 (11:19→21:44)
[2018-10-19] MEDS: NICOTINE 21 MG/24 HR PATCH.TD24 TD SCH (11:25)
[2018-10-19] MEDS ORDERED: HYDROMORPHONE HCL INJ/PF 2 MG/ML AMPULE IV PRN (12:05)
--- NOTE | 2018-10-19 12:27 | PDOC PROGRESS REPORT ---
Subjective Progress Note for:: 10/19/18 Subjective:: Patient continues to have discomfort in his right shoulder, no significant change since surgery. States it is improved with narcotics but worsens with motion and at night. Denies fever chills or sweats. Reason For Visit: SEPSIS,POSSIBLE SEPTIC JOINT Physical Exam Vital Signs: Temp Pulse Resp BP Pulse Ox 97.4 F 101 H 18 133/88 H 99 10/19/18 08:44 10/19/18 08:44 10/19/18 08:44 10/19/18 08:44 10/19/18 08:44 Intake & Output 10/18/18 10/19/18 10/20/18 06:59 06:59 06:59 Intake Total 998 1433 Output Total 3500 Balance -2502 1433 Weight 94.8 kg 94.6 kg Musculoskeletal exam: PRESENT: other - Right shoulder: Surgical incision well approximated, no erythema or drainage. Mild ecchymosis and swelling. Tenderness palpation unchanged. Pain with attempted passive range of motion. Results Laboratory Results: 10/19/18 08:03 10/19/18 08:03 10/19/18 10/19/18 08:03 08:03 WBC 7.6 RBC 3.90 L Hgb 12.7 L Hct 37.2 L MCV 95 MCH 32.7 MCHC 34.3 RDW 14.3 H Plt Count 261 Seg Neutrophils % 60.9 Lymphocytes % 20.3 Monocytes % 14.0 H Eosinophils % 3.9 Basophils % 0.9 Absolute Neutrophils 4.6 Absolute Lymphocytes 1.5 Absolute Monocytes 1.1 Absolute Eosinophils 0.3 Absolute Basophils 0.1 Sodium 142.6 Potassium 4.8 D Chloride 99 Carbon Dioxide 24 Anion Gap 20 H BUN 42 H Creatinine 10.45 H Est GFR ( Amer) 6 L Est GFR (Non-Af Amer) 5 L Glucose 84 Calcium 9.5 10/13/18 13:34 Blood Blood Culture - Final NO GROWTH IN 5 DAYS 10/13/18 12:21 Blood Blood Culture - Final NO GROWTH IN 5 DAYS 10/12/18 10/17/18 10/17/18 22:55 05:45 05:45 Creatine Kinase 73 CK-MB (CK-2) 1.34 Troponin I < 0.012 0.179 NT-Pro-B Natriuret Pep 10/17/18 10/17/18 10/17/18 12:20 12:20 19:50 Creatine Kinase 75 68 CK-MB (CK-2) 1.36 Troponin I 0.149 NT-Pro-B Natriuret Pep 10/17/18 10/18/18 10/18/18 19:50 04:22 09:12 Creatine Kinase CK-MB (CK-2) 1.04 Troponin I 0.121 0.105 NT-Pro-B Natriuret Pep 7360 H 10/18/18 09:12 Creatine Kinase CK-MB (CK-2) Troponin I 0.094 NT-Pro-B Natriuret Pep Impressions: Shoulder X-Ray 10/12/18 22:33 IMPRESSION: No acute findings. Upper Extremity CT 10/13/18 00:03 IMPRESSION: No acute findings. Upper Extremity MRI 10/13/18 03:09 IMPRESSION: Ruptured long head biceps tendon attachment with superior labral tear. Fluid throughout the subacromial/subdeltoid bursa. Fluid in the AC joint, question AC separation Mild tendinopathy distal supra and infraspinatus tendons Report called to emergency room attending physician Chest CT 10/17/18 00:00 IMPRESSION: No evidence of acute intrathoracic process. Three-vessel coronary atherosclerosis. Chest X-Ray 10/17/18 00:00 IMPRESSION: No acute cardiopulmonary process copyright 2011 [employer]- All Rights Reserved Assessment & Plan - Diagnosis (1) Cellulitis of shoulder Is this a current diagnosis for this admission?: No (2) Acromioclavicular joint arthritis Qualifiers: Laterality: right Qualified Code(s): M19.011 - Primary osteoarthritis, right shoulder Is this a current diagnosis for this admission?: Yes Plan: Given negative cultures and pathology I feel majority of patient's symptoms are likely inflammatory arthropathy in nature acute injury remains within the differential at this point I do not feel patient requires further surgical intervention or antibiotics. Would recommend trial of steroids initially and possible inflammatory arthropathy workup. Patient may follow-up with Dr. Sanderson as an outpatient.
[2018-10-19] MEDS ORDERED: METHYLPREDNISOLONE INJ 125 MG/2 ML SDV IV ONE ×2 (14:21→20:00)
--- NOTE | 2018-10-19 16:09 | PDOC PROGRESS REPORT ---
Subjective Progress Note for:: 10/19/18 Subjective:: I am seeing the patient during dialysis this afternoon. He just had cardiac stress test this morning. Official report is still pending at this time. He still was hurting on his right shoulder and orthopedics surgeon does not recommend any further surgical intervention. He complains of a little bit of nausea and vomiting so he did not really eat lunch prior to going to dialysis. He still requires pain medication which can induce some nausea and vomiting as well. So far he is tolerating dialysis without any problems. Reason For Visit: SEPSIS,POSSIBLE SEPTIC JOINT Physical Exam Vital Signs: Temp Pulse Resp BP Pulse Ox 97.6 F 75 14 138/83 H 96 10/19/18 12:11 10/19/18 14:32 10/19/18 14:32 10/19/18 12:11 10/19/18 12:11 Intake & Output 10/18/18 10/19/18 10/20/18 06:59 06:59 06:59 Intake Total 998 1433 475 Output Total 3500 Balance -2502 1433 475 Weight 94.8 kg 94.6 kg 94.6 kg Vitals during dialysis: Blood pressure 165/87, heart rate of 104, blood flow rate of 450 mL/min, dialysate flow rate of 800 mL/min. Exam: General appearance: PRESENT: no acute distress, cooperative, well-developed, well-nourished Head exam: PRESENT: atraumatic, normocephalic Eye exam: PRESENT: conjunctiva pink, PERRLA. ABSENT: scleral icterus Neck exam: ABSENT: JVD Respiratory exam: PRESENT: Diminished breath sounds. ABSENT: crackles, rales, rhonchi, unlabored, wheezes Cardiovascular exam: PRESENT: Regular rate rhythm -+S1, +S2. ABSENT: diastolic murmur, systolic murmur GI/Abdominal exam: PRESENT: normal bowel sounds, soft. ABSENT: guarding, mass, tenderness Extremities exam: ABSENT: No edema Neurological exam: PRESENT: alert, awake, oriented to person, place and time. Skin exam: PRESENT: dry, warm, Cardiovascular exam: PRESENT: RRR, +S1, +S2 Results Laboratory Results: 10/19/18 08:03 10/19/18 08:03 10/19/18 10/19/18 08:03 08:03 WBC 7.6 RBC 3.90 L Hgb 12.7 L Hct 37.2 L MCV 95 MCH 32.7 MCHC 34.3 RDW 14.3 H Plt Count 261 Seg Neutrophils % 60.9 Lymphocytes % 20.3 Monocytes % 14.0 H Eosinophils % 3.9 Basophils % 0.9 Absolute Neutrophils 4.6 Absolute Lymphocytes 1.5 Absolute Monocytes 1.1 Absolute Eosinophils 0.3 Absolute Basophils 0.1 Sodium 142.6 Potassium 4.8 D Chloride 99 Carbon Dioxide 24 Anion Gap 20 H BUN 42 H Creatinine 10.45 H Est GFR ( Amer) 6 L Est GFR (Non-Af Amer) 5 L Glucose 84 Calcium 9.5 10/13/18 13:34 Blood Blood Culture - Final NO GROWTH IN 5 DAYS 10/13/18 12:21 Blood Blood Culture - Final NO GROWTH IN 5 DAYS 10/12/18 10/17/18 10/17/18 22:55 05:45 05:45 Creatine Kinase 73 CK-MB (CK-2) 1.34 Troponin I < 0.012 0.179 NT-Pro-B Natriuret Pep 10/17/18 10/17/18 10/17/18 12:20 12:20 19:50 Creatine Kinase 75 68 CK-MB (CK-2) 1.36 Troponin I 0.149 NT-Pro-B Natriuret Pep 10/17/18 10/18/18 10/18/18 19:50 04:22 09:12 Creatine Kinase CK-MB (CK-2) 1.04 Troponin I 0.121 0.105 NT-Pro-B Natriuret Pep 7360 H 10/18/18 09:12 Creatine Kinase CK-MB (CK-2) Troponin I 0.094 NT-Pro-B Natriuret Pep Impressions: Shoulder X-Ray 10/12/18 22:33 IMPRESSION: No acute findings. Upper Extremity CT 10/13/18 00:03 IMPRESSION: No acute findings. Upper Extremity MRI 10/13/18 03:09 IMPRESSION: Ruptured long head biceps tendon attachment with superior labral tear. Fluid throughout the subacromial/subdeltoid bursa. Fluid in the AC joint, question AC separation Mild tendinopathy distal supra and infraspinatus tendons Report called to emergency room attending physician Chest CT 10/17/18 00:00 IMPRESSION: No evidence of acute intrathoracic process. Three-vessel coronary atherosclerosis. Chest X-Ray 10/17/18 00:00 IMPRESSION: No acute cardiopulmonary process copyright 2011 [employer]- All Rights Reserved Assessment & Plan - Diagnosis (1) ESRD (end stage renal disease) on dialysis Is this a current diagnosis for this admission?: Yes Plan: We will do dialysis today for 3 hours, using the patient's AV fistula, with 2 potassium bath, blood flow rate of 450 mL per minute, dialysate flow rate of 800 mL per minute, ultrafiltration 1-2 L as tolerated, no heparin and no Procrit. Patient will be monitored throughout dialysis treatment. We will adjust treatment accordingly. (2) Cellulitis of shoulder Is this a current diagnosis for this admission?: Yes (3) Hypertension Is this a current diagnosis for this admission?: Yes (4) Anemia in chronic kidney disease Is this a current diagnosis for this admission?: Yes Plan: No Procrit necessary today. (5) Diabetes mellitus type 2 in obese Is this a current diagnosis for this admission?: Yes - Time Time with patient: 15-25 minutes
[2018-10-19] MEDS: ONDANSETRON 4 MG TAB.RAPDIS PO PRN (19:05)
--- NOTE | 2018-10-19 21:05 | PDOC PROGRESS REPORT ---
Subjective Progress Note for:: 10/19/18 Subjective:: 63 y.o. M with a PMH of IDDM, ESRD-on MWF dialysis, hypertension, CAD with 2 prior stents, osteoarthritis and history of CVA who presented with acute right shoulder pain. CT of the shoulder was done which was unremarkable. MRI was pursued which showed ruptured bicep tendon attachment with superior labral tear, fluid throughout the subacromial/subdeltoid bursa, fluid collection in the AC joint (possible separation). Mild tendinopathy to the distal supra and infrasp inatous tendons. He was admitted for cellulitis vs a beginning or early septic joint. POD#4 status post right distal clavicle resection. Pathology results today not indicative of anything significant. The patient's presentation is not infectious. Asked Dr. Murphy to evaluate the patient, he recommends steroids for inflammatory arthropy. We agree that the patient's presentation does not appear to be infectious, there is no septic joint. Patient completed his stress test today, ordered after patient had chest pain 2 days ago. Results of stress test are normal. Reason For Visit: SEPSIS,POSSIBLE SEPTIC JOINT Physical Exam Vital Signs: Temp Pulse Resp BP Pulse Ox 97.7 F 74 18 125/70 92 10/19/18 19:45 10/19/18 20:16 10/19/18 20:16 10/19/18 19:45 10/19/18 20:16 Intake & Output 10/18/18 10/19/18 10/20/18 06:59 06:59 06:59 Intake Total 998 1433 475 Output Total 3500 1200 Balance -2502 1433 -725 Weight 94.8 kg 94.6 kg 94.6 kg General appearance: PRESENT: no acute distress, well-developed, well-nourished Head exam: PRESENT: atraumatic Eye exam: PRESENT: conjunctiva pink, PERRLA Mouth exam: PRESENT: moist Teeth exam: PRESENT: poor dentation Neck exam: PRESENT: full ROM Respiratory exam: PRESENT: clear to auscultation melecio, symmetrical, unlabored Cardiovascular exam: PRESENT: RRR Pulses: PRESENT: normal radial pulses, normal dorsalis pedis pul Vascular exam: PRESENT: normal capillary refill GI/Abdominal exam: PRESENT: soft. ABSENT: distended, tenderness Rectal exam: PRESENT: deferred Extremities exam: PRESENT: full ROM. ABSENT: pedal edema Musculoskeletal exam: PRESENT: ambulatory, full ROM Neurological exam: PRESENT: alert, awake, oriented to person, oriented to place, oriented to time, oriented to situation Skin exam: PRESENT: dry, intact, normal color Results Laboratory Results: 10/19/18 08:03 10/19/18 08:03 10/19/18 10/19/18 08:03 08:03 WBC 7.6 RBC 3.90 L Hgb 12.7 L Hct 37.2 L MCV 95 MCH 32.7 MCHC 34.3 RDW 14.3 H Plt Count 261 Seg Neutrophils % 60.9 Lymphocytes % 20.3 Monocytes % 14.0 H Eosinophils % 3.9 Basophils % 0.9 Absolute Neutrophils 4.6 Absolute Lymphocytes 1.5 Absolute Monocytes 1.1 Absolute Eosinophils 0.3 Absolute Basophils 0.1 Sodium 142.6 Potassium 4.8 D Chloride 99 Carbon Dioxide 24 Anion Gap 20 H BUN 42 H Creatinine 10.45 H Est GFR ( Amer) 6 L Est GFR (Non-Af Amer) 5 L Glucose 84 Calcium 9.5 10/12/18 10/17/18 10/17/18 22:55 05:45 05:45 Creatine Kinase 73 CK-MB (CK-2) 1.34 Troponin I < 0.012 0.179 NT-Pro-B Natriuret Pep 10/17/18 10/17/18 10/17/18 12:20 12:20 19:50 Creatine Kinase 75 68 CK-MB (CK-2) 1.36 Troponin I 0.149 NT-Pro-B Natriuret Pep 10/17/18 10/18/18 10/18/18 19:50 04:22 09:12 Creatine Kinase CK-MB (CK-2) 1.04 Troponin I 0.121 0.105 NT-Pro-B Natriuret Pep 7360 H 10/18/18 09:12 Creatine Kinase CK-MB (CK-2) Troponin I 0.094 NT-Pro-B Natriuret Pep Impressions: Shoulder X-Ray 10/12/18 22:33 IMPRESSION: No acute findings. Upper Extremity CT 10/13/18 00:03 IMPRESSION: No acute findings. Upper Extremity MRI 10/13/18 03:09 IMPRESSION: Ruptured long head biceps tendon attachment with superior labral tear. Fluid throughout the subacromial/subdeltoid bursa. Fluid in the AC joint, question AC separation Mild tendinopathy distal supra and infraspinatus tendons Report called to emergency room attending physician Chest CT 10/17/18 00:00 IMPRESSION: No evidence of acute intrathoracic process. Three-vessel coronary atherosclerosis. Chest X-Ray 10/17/18 00:00 IMPRESSION: No acute cardiopulmonary process copyright 2011 [employer]- All Rights Reserved Status: Imported from PACS Assessment and Plan - Diagnosis (1) Cellulitis of shoulder Is this a current diagnosis for this admission?: Yes Plan: POD#4 status post right distal clavicle resection. Awaiting pathology results. Cellulitis vs a beginning or early septic joint that warrants IV antibiotics for now Continue IV vancomycin and Zosyn Ortho consulted Continue RUE sling MS Contin SR and IV dilaudid for pain (2) ESRD (end stage renal disease) Is this a current diagnosis for this admission?: Yes Plan: PMH ESRD Followed by Dr. Waller Currently receiving HD MWF while inpatient (3) IDDM (insulin dependent diabetes mellitus) Is this a current diagnosis for this admission?: Yes Plan: Hgb 5.3% Diet control No need for insulin at this time (4) CAD (coronary artery disease) Is this a current diagnosis for this admission?: Yes Plan: PMH CAD The patient does not take ASA or statin at home History of multiple cardiac stents Continue ASA and statin (5) Chest pain Is this a current diagnosis for this admission?: Yes Plan: Midsternal/epigastric chest pain, acute onset 0500 yesterday a.m. Exacerbated with coughing and deep inhalation Patient states he has been experiencing chest pain on and off for "many years" EKG shows NSR, T wave inversion in leads V1-3, this is a new finding Troponin peaked at 0.14, no longer trending Cardiology consulted CT chest done - results normal Stress test normal
[2018-10-19] MEDS: PHARMACY COMMUNICATION ORDER MC SCH (21:45)
--- NOTE | 2018-10-19 22:24 | Progress Note ---
Provider Note Provider Note: CARDIOLOGY PROGRESS NOTE by Dr. Charmaine Ryan on 10/19/2018. SUBJECTIVE: The patient has no further noncardiac chest pain. There is no PND orthopnea. He shortness of breath is improved a lot. There is no PND orthopnea. The patient's l right shoulder pain is much improved. He has been ambulating with the physical therapy. The patient underwent uneventful IV Lexiscan cardiac stress test note that the patient was seen prior to, during, and after stress test. Note that the patient is not on any cardioprotective medication. Will slowly start him on beta-blockers. The patient does have a history of coronary artery disease a history of stents we will try to get records. But the patient has no anginal symptoms. But the patient does have an abnormal EKG. His IV Lexiscan Cardiolite stress test is negative for ischemia ME. He had marginal elevation of troponin I and an abnormal EKG. Most likely this is a very small non-ST elevation ME and is not picked up by the stress test, or supply demand mismatch causing type II ME. Hence will maximize the patient's cardiac medications. Agree with continuing aspirin and statin. Will add a beta-jaimie beta-jaimie and nitrates. PHYSICAL EXAMINATION: The patient is mildly obese. He is in no acute distress. He is well groomed. Selected Entries 10/19/18 12:11 Temperature 97.6 F Temperature Oral Source Pulse Rate 101 H Respiratory 18 Rate Blood Pressure 138/83 H Blood Pressure 101 Mean BP Location Left Leg BP Position Supine O2 Sat by Pulse 96 Oximetry Oxygen Flow 2.00 Rate Oxygen Delivery Nasal Cannula Method normocephalic. EYES: Pupils are equal round regular reactive to light accommodation. Extraocular movements are normal. There is no pallor. There is no scleral icterus. EARS: Tympanic membranes are intact. External ear canals are clear. NOSE: There is no deviated nasal septum. There is no inflammation of the nasal mucous. MOUTH: Mucous members of the mouth are moist. Tongue is moist. There is no bleeding from the gums. THROAT: There is no redness of the oropharynx. There is no exudates. SKIN: There is no skin lesions or skin rashes. There is no petechia or ecchymosis. NECK: Is supple. There is no JVD. Carotids are equal there is no bruit. There is no accessory muscle respiration use trachea central. LUNGS: There is diminished air entry prolonged expiration. There is no rhonchi rales or wheezing. There is no chest wall tenderness to be on palpation. On percussion there is hyperresonance. HEART: S1-S2 is heard. There is no S3 gallop. There is no S4 gallop. There is systolic murmur left sternal border and the apex there is no rub. There is no rub ABDOMEN: Soft. There is no hepatosplenomegaly. Bowel sounds are well. EXTREMITIES: Femorals are diminished. There is no femoral bruits. Leg pulses are diminished. The patient's right is in a sling. Leg pulses are diminished. There is no pedal edema. There is no DVT or cellulitis. There is no calf tenderness. [employer]: The patient is conscious awake alert oriented x3 with no focal deficits. PSYCHIATRIC: Patient judgment insight are intact her affect is normal. The patient's IV Lexiscan Cardiolite stress test showed no evidence of ischemia or scar. This has been discussed at length with the patient. Labs- All tests 24 hr 10/17/18 10/19/18 10/19/18 15:50 07:40 08:03 WBC RBC Hgb Hct MCV MCH MCHC RDW Plt Count Seg Neutrophils % Lymphocytes % Monocytes % Eosinophils % Basophils % Absolute Neutrophils Absolute Lymphocytes Absolute Monocytes Absolute Eosinophils Absolute Basophils Sodium Potassium Chloride Carbon Dioxide Anion Gap BUN Creatinine Est GFR ( Amer) Est GFR (Non-Af Amer) Glucose POC Glucose 94 Calcium Time Trough Drawn 0803 Vancomycin Trough 18.6 Hep Bs Antibody <3.1 L Hep B Core Total Ab Negative 10/19/18 10/19/18 10/19/18 08:03 08:03 12:14 WBC 7.6 RBC 3.90 L Hgb 12.7 L Hct 37.2 L MCV 95 MCH 32.7 MCHC 34.3 RDW 14.3 H Plt Count 261 Seg Neutrophils % 60.9 Lymphocytes % 20.3 Monocytes % 14.0 H Eosinophils % 3.9 Basophils % 0.9 Absolute Neutrophils 4.6 Absolute Lymphocytes 1.5 Absolute Monocytes 1.1 Absolute Eosinophils 0.3 Absolute Basophils 0.1 Sodium 142.6 Potassium 4.8 D Chloride 99 Carbon Dioxide 24 Anion Gap 20 H BUN 42 H Creatinine 10.45 H Est GFR ( Amer) 6 L Est GFR (Non-Af Amer) 5 L Glucose 84 POC Glucose 115 H Calcium 9.5 Time Trough Drawn Vancomycin Trough Hep Bs Antibody Hep B Core Total Ab 10/19/18 21:02 WBC RBC Hgb Hct MCV MCH MCHC RDW Plt Count Seg Neutrophils % Lymphocytes % Monocytes % Eosinophils % Basophils % Absolute Neutrophils Absolute Lymphocytes Absolute Monocytes Absolute Eosinophils Absolute Basophils Sodium Potassium Chloride Carbon Dioxide Anion Gap BUN Creatinine Est GFR ( Amer) Est GFR (Non-Af Amer) Glucose POC Glucose 156 H Calcium Time Trough Drawn Vancomycin Trough Hep Bs Antibody Hep B Core Total Ab Chest X-Ray 10/12/18 22:33 IMPRESSION: No acute cardiopulmonary findings. Shoulder X-Ray 10/12/18 22:33 IMPRESSION: No acute findings. Upper Extremity CT 10/13/18 00:03 IMPRESSION: No acute findings. Upper Extremity MRI 10/13/18 03:09 IMPRESSION: Ruptured long head biceps tendon attachment with superior labral tear. Fluid throughout the subacromial/subdeltoid bursa. Fluid in the AC joint, question AC separation Mild tendinopathy distal supra and infraspinatus tendons Report called to emergency room attending physician Chest CT 10/17/18 00:00 IMPRESSION: No evidence of acute intrathoracic process. Three-vessel coronary atherosclerosis. Chest X-Ray 10/17/18 00:00 IMPRESSION: No acute cardiopulmonary process copyright 2010 [employer]- All Rights Reserved IMPRESSION/RECOMMENDATION: 1. Minimally elevated troponin I. There is small non-STEMI versus type II ME secondary to supply demand mismatch. As for reasons mentioned earlier is difficult to differentiate. The patient does have a history of coronary artery disease and history of stents. Hence will maximize anti-CAD medication. Agree with continuing statin and aspirin. 2. Noncardiac/nonanginal chest pain: Resolved. 3. Abnormal EKG: Negative Cardiolite stress test for ischemia or ME. Most likely EKG changes may be secondary to underlying diabetes mellitus or hypertension and end-stage renal disease. 4. Coronary artery disease: History of stents in the coronary arteries. Will get records. No clear-cut anginal symptoms. 5. Hypertension: Blood pressure is well controlled 6. Insulin-dependent type 2 diabetes mellitus: Continue insulin at current current current medications. 7. Cellulitis of the right shoulder antibiotics. Patient status post distal right clavicle excision. Continue rehab. Continue analgesics. 8. End-stage renal disease on hemodialysis. Continue dialysis as per schedule 9. COPD by exam. At present stable. 10. History of tobacco abuse. Tobacco cessation counseling given to the patient. 3 minutes spent on this patient on this. Ill effects of smoking of being stressed Medications reviewed. Medications added medical decision making is now of high complexity. Patient is asked to follow-up with me in the office. Later after discharge will follow the patient in the office. Case. Discussed the lab findings and the EKG findings and the stress test findings with the patient again. 40 minutes spent on this patient more than 50% of time spent in direct patient care. Cardiac status is stable. Will sign off. The patient is asked to follow-up with me in the office. Contact numbers given.
[2018-10-19] MEDS ORDERED: METOPROLOL TARTRATE 25 MG TABLET PO ONE (23:00)
[2018-10-20] MEDS: IPRATROPIUM/ALBUTEROL 0.5-2.5 MG/3 ML AMPUL NEB SCH ×3 (02:04→13:58)
[2018-10-20] MEDS: PIPERACILLIN SODIUM/TAZOBACTAM 2.25 GM in NORMAL SALINE 50 ML IV SCH (06:13)
[2018-10-20] MEDS ORDERED: METHYLPREDNISOLONE INJ 40 MG/1 ML SDV IV SCH (08:00)
[2018-10-20] MEDS: SENNOSIDES/DOCUSATE 8.6-50 MG 1 EACH TABLET PO SCH (09:43)
[2018-10-20] MEDS: SEVELAMER HCL 800 MG TABLET PO SCH ×2 (09:43→12:41)
[2018-10-20] MEDS: DIAZEPAM 5 MG TABLET PO SCH (09:43)
[2018-10-20] MEDS: LIDOCAINE 5% (700 MG) TRANSDERMAL ADH..PATCH TP SCH (09:44)
[2018-10-20] MEDS: NICOTINE 21 MG/24 HR PATCH.TD24 TD SCH (09:44)
[2018-10-20] MEDS: POLYETHYLENE GLYCOL 3350 POWDER 17 GM/1 PACKET PO SCH (09:44)
[2018-10-20] MEDS: HEPARIN SOD (PORCINE) 5,000 UNIT/ML 1 ML SYRINGE SUBCUT SCH (09:45)
[2018-10-20] MEDS: MORPHINE SULFATE SR 15 MG TABLET PO SCH (09:47)
[2018-10-20] MEDS ORDERED: NITROGLYCERIN 5 MG (0.2 MG/HR) PATCH.TD24 TD SCH (10:00)
[2018-10-20] MEDS ORDERED: METOPROLOL TARTRATE 25 MG TABLET PO SCH (10:00)
[2018-10-20 13:55] VITALS: BP 117/67
[2018-10-20] MEDS ORDERED: PIPERACILLIN SODIUM/TAZOBACTAM 2.25 GM in NORMAL SALINE 50 ML IV SCH (14:00)
[2018-10-20] MEDS: ONDANSETRON 4 MG TAB.RAPDIS PO PRN (14:04)
--- NOTE | 2018-10-20 22:55 | DRAGON STRESS TEST REPORT ---
Intravenous Lexiscan Cardiolite stress test using single photon emmision computerized tomography. Date of procedure: 10/19/2018. Ordering Provider: Dr. Charmaine Ryan. Patient's status: In Patient Indication: Abnormal EKG, and elevated troponin. Coronary risk factors: Age, hypertension, and diabetes mellitus. Resting EKG: Sinus Rhythm. T wave changes anterior leads. Stress EKG: No changes of ischemia. The patient had no chest pain or discomfort, and there were no arrhythmias seen. Reason for termination: Protocol. Conclusions: Normal EKG and hemodynamic response to IV Lexiscan. Nuclear data: At rest the patient was given 14.18 millicuries of technetium 99m sestamibi injected intravenously. As per protocol rest non gated SPECT images were obtained. Subsequently the patient was given intravenous Lexiscan at a dose of 0.4 mg in 5 mL intravenously, followed by flush with normal saline. Subsequently the stress dose of 40.3 millicuries of technetium 99m sestamibi was injected intravenously. As per protocol stress gated images were obtained. Nuclear interpretation: Review of images showed that all segments of the myocardium had normal perfusion at rest, and normal perfusion post stress with IV Lexiscan. All segments of the myocardium had normal motion, contraction, and thickening by gated study. T. I D. ratio was normal at 1.02. There is no transient ischemic dilatation of the left ventricle. Computer read rest, and stress left ventricular ejection fraction were 66 %, and 66 %, respectively. Conclusion: 1. There is no scintigraphic evidence of Lexiscan induced myocardial ischemia. 2. There is no scintigraphic evidence of myocardial infarction/scar. Recommendations: Aggressive risk factor modification, and treating the underlying co- morbidities. MTDD
--- NOTE | 2018-10-23 12:13 | PDOC DISCHARGE SUMMARY ---
General - Admit/Disc Date/PCP Admission Date/Primary Care Provider: 10/13/18 11:31 CHERRI CHAIREZUMATE, Discharge Date: 10/20/18 - Discharge Diagnosis (1) Cellulitis of shoulder Is this a current diagnosis for this admission?: Yes (2) ESRD (end stage renal disease) Is this a current diagnosis for this admission?: Yes (3) IDDM (insulin dependent diabetes mellitus) Is this a current diagnosis for this admission?: Yes (4) CAD (coronary artery disease) Is this a current diagnosis for this admission?: Yes (5) Chest pain Is this a current diagnosis for this admission?: Yes - Additional Information Resuscitation Status: Full Code Discharge Diet: As Tolerated Discharge Activity: Activity As Tolerated Prescriptions: RX: Metoprolol Tartrate [Lopressor 25 mg Tablet] 25 mg PO Q12 #60 tablet RX: Morphine Sulfate [Ms-Contin Sr 15 mg Tablet] 15 mg PO Q12 #28 tablet. Home Medications: RX: Diazepam [Valium] 10 mg PO Q12 10/13/18 RX: Insulin Glargine,Hum.rec.anlog [Lantus Insulin 100 Unit/1 ml 10 ml] 20 units SQ QHS 10/13/18 RX: Sevelamer HCl [Renagel 800 mg Tablet] 1,600 mg PO .SNACKS 10/14/18 RX: Sevelamer HCl [Renagel 800 mg Tablet] 2,400 mg PO MEALS 10/14/18 RX: Metoprolol Tartrate [Lopressor 25 mg Tablet] 25 mg PO Q12 #60 tablet 10/20/18 RX: Morphine Sulfate [Ms-Contin Sr 15 mg Tablet] 15 mg PO Q12 #28 tablet. 10/20/18 History of Present Illness History of Present Illness: GET BURGESS is a 63 year old male with a PMH of IDDM, ESRD-on MWF dialysis, hypertension, CAD with 2 prior stents, osteoarthritis and history of CVA who presented with acute right shoulder pain yesterday while getting dialysis yesterday. He did complete his dialysis. He went to the ER and CT of the shoulder was done which was unremarkable. MRI was pursued which showed no glenohumeral joint fluid collection and moderate fluid in the subacromial bursa and biceps rupture as well. ESR and CRP are also elevated. Orthopedics did evaluate patient and tried tapping the shoulder joint but no fluid was obtained. Patient denies any recent trauma or fall. Upon encounter, he does complain of mild tenderness on palpation of the AC joint. There is minimal LOM from pain on attempt to abduct the shoulder. Discussed in length with Dr. Murphy who does not deem that there is a need for any orthopedic or surgical intervention at this time. Ruptured biceps tendon is also deemed related to degenerative process by ortho and does not need intervention at this time. This is likely a cellulitis vs a beginning or early septic joint that warrants IV antibiotics for now. Hospital Course Hospital Course: 63 y.o. M with a PMH of IDDM, ESRD-on MWF dialysis, hypertension, CAD with 2 prior stents, osteoarthritis and history of CVA who presented with acute right shoulder pain. CT of the shoulder was done which was unremarkable. MRI was pursued which showed ruptured bicep tendon attachment with superior labral tear, fluid throughout the subacromial/subdeltoid bursa, fluid collection in the AC joint (possible separation). Mild tendinopathy to the distal supra and infraspinatous tendons. He was admitted for cellulitis vs a beginning or early septic joint. Ortho surgery was consulted. Attempted a joint aspiration in the ED but was unsuccessful. Dr. Murphy recommended antibiotics for a possible septic joint. The patient was initially treated with Vancomycin and Zosyn for 48 hours. His joint pain and limited ROM did not improve. Ortho surgery thought it would be best to preform an operative intervention to obtain cultures and biopsy of the AC joint. 10/15/2018 patient underwent right distal clavicle resection with Dr. Sanderson. At that time a a fragment of the clavicle was sent to pathology for testing. Additionally, the superficial R clavicle and deep R clavicle were cultures. The cultures were negative and the pathology results only showed EXTENSIVE DEGENERATIVE CHANGES AND MILD ACUTE INFLAMMATION. On hospital day #5 the patient's antibiotics were discontinued and he was started on IV steroids for inflammatory arthropathy. The following day, the patient was noted to have increased ROM in the R shoulder and reported an improvement in his shoulder pain. The decision was made to discharge the patient home on steroids and follow up with ortho in 1-2 weeks. The patient was provided a front wheeled walker with R arm platform. Additionally, he was ordered home health with PT/OT. During his inpatient stay, the patient was noted to have mildly uncontrolled HTN. He was started on Toprol XL and BP control was achieved. The patient was provided a prescription for this new medication. For further information regarding this patient's hospitalization, please refer to the EMR. Physical Exam Vital Signs: Temp Pulse Resp BP Pulse Ox 98.2 F 90 18 117/67 97 10/20/18 13:53 10/20/18 13:53 10/20/18 13:53 10/20/18 13:53 10/20/18 13:53 General appearance: PRESENT: obese Eye exam: PRESENT: conjunctiva pink, PERRLA Mouth exam: PRESENT: moist, tongue midline Teeth exam: PRESENT: poor dentation Neck exam: PRESENT: full ROM Respiratory exam: PRESENT: clear to auscultation melecio, symmetrical, unlabored Cardiovascular exam: PRESENT: RRR Pulses: PRESENT: normal radial pulses, normal dorsalis pedis pul Vascular exam: PRESENT: normal capillary refill GI/Abdominal exam: PRESENT: soft. ABSENT: distended, tenderness Rectal exam: PRESENT: deferred Extremities exam: ABSENT: full ROM - RUE limited ROM due to arthropathy, pedal edema Musculoskeletal exam: PRESENT: ambulatory. ABSENT: full ROM - RUE limited ROM due to arthropathy Neurological exam: PRESENT: alert, awake, oriented to person, oriented to place, oriented to time, oriented to situation Skin exam: PRESENT: dry, intact, normal color, other - SURGICAL SITE - R SHOULDER. WOUND IS STAPLED CLOSED. NO DRAINAGE, ERYTHEMA, EDEMA NOTED Results Laboratory Results: 10/19/18 08:03 10/19/18 08:03 10/12/18 10/17/18 10/17/18 22:55 05:45 05:45 Creatine Kinase 73 CK-MB (CK-2) 1.34 Troponin I < 0.012 0.179 NT-Pro-B Natriuret Pep 10/17/18 10/17/18 10/17/18 12:20 12:20 19:50 Creatine Kinase 75 68 CK-MB (CK-2) 1.36 Troponin I 0.149 NT-Pro-B Natriuret Pep 10/17/18 10/18/18 10/18/18 19:50 04:22 09:12 Creatine Kinase CK-MB (CK-2) 1.04 Troponin I 0.121 0.105 NT-Pro-B Natriuret Pep 7360 H 10/18/18 09:12 Creatine Kinase CK-MB (CK-2) Troponin I 0.094 NT-Pro-B Natriuret Pep Impressions: Shoulder X-Ray 10/12/18 22:33 IMPRESSION: No acute findings. Upper Extremity CT 10/13/18 00:03 IMPRESSION: No acute findings. Upper Extremity MRI 10/13/18 03:09 IMPRESSION: Ruptured long head biceps tendon attachment with superior labral tear. Fluid throughout the subacromial/subdeltoid bursa. Fluid in the AC joint, question AC separation Mild tendinopathy distal supra and infraspinatus tendons Report called to emergency room attending physician Chest CT 10/17/18 00:00 IMPRESSION: No evidence of acute intrathoracic process. Three-vessel coronary atherosclerosis. Chest X-Ray 10/17/18 00:00 IMPRESSION: No acute cardiopulmonary process copyright 2010 [employer]- All Rights Reserved Status: Imported from [employer] Qualifiers - * PATIENT BEING DISCHARGED WITH ANY OF THE FOLLOWING DIAGNOSIS: No
--- NOTE | 2018-10-25 15:17 | Operative Report ---
Operative Report DATE OF SURGERY: 10/15/18 PREOPERATIVE DIAGNOSIS: Painful right acromioclavicular joint OPERATION: Right distal clavicle resection SURGEON: DUGLAS YOUNG ANESTHESIA: GA TISSUE REMOVED OR ALTERED: Cultures x2 to microbiology, distal clavicle to pathology. ESTIMATED BLOOD LOSS: Minimal PROCEDURE: the left shoulder was prepped and draped in a sterile fashion. A longitudinal incision was made over the AC joint. Periosteum elevated and retracted anterior posterior. An oscillating saw was used to resect the distal 0.75 cm of clavicle. Hemostasis obtained, wound irrigated. would closed with vicryl and alex. A sterile compressive dressing is applied and patient is return to PACU in satisfactory condition.
== END 2018-10-20 14:00 | disposition home or self-care (01) | DRG 981 ==
LOC: ER 20:23 → EH 10-13 11:31 → 3N 10-13 14:50
PROVIDERS: ADMIT Internal Medicine; ATTEND Internal Medicine
PROC: 5A1D70Z Performance of Urinary Filtration, Intermittent, Less than 6 Hours Per Day (ICD-10-PCS; 2018-10-15)
PROC: 0PB90ZZ Excision of Right Clavicle, Open Approach (ICD-10-PCS; principal; 2018-10-15 19:45)
DX: L03.113 Cellulitis of right upper limb (principal); N18.6 End stage renal disease; I12.0 Hypertensive chronic kidney disease with stage 5 chronic kidney disease or end stage renal disease; M66.811 Spontaneous rupture of other tendons, right shoulder; M25.511 Pain in right shoulder; D63.1 Anemia in chronic kidney disease; K21.9 Gastro-esophageal reflux disease without esophagitis; I25.10 Atherosclerotic heart disease of native coronary artery without angina pectoris; E78.00 Pure hypercholesterolemia, unspecified; J44.9 Chronic obstructive pulmonary disease, unspecified; E11.22 Type 2 diabetes mellitus with diabetic chronic kidney disease; S16.1XXA Strain of muscle, fascia and tendon at neck level, initial encounter; X58.XXXA Exposure to other specified factors, initial encounter; Y93.89 Activity, other specified; Y92.89 Other specified places as the place of occurrence of the external cause; I25.2 Old myocardial infarction; Z99.2 Dependence on renal dialysis; Z79.51 Long term (current) use of inhaled steroids; Z79.52 Long term (current) use of systemic steroids; Z79.899 Other long term (current) drug therapy
CPT/HCPCS: 01630; 36415; 71045; 71260; 78452; 80048; 80053; 80202; 82550; 82553; 82803; 82962; 83036; 83605; 83735; 83880; 84484; 84550; 85025; 85027; 85652; 86140; 86317; 86704; 87040; 87070; 87075; 87205; 88304; 88305; 88311; 93005; 93010; 93017; 93306; 94799; 96374; 96375; 99285; A9500; J0330; J0690; J1170; J1644; J2250; J2405; J2543; J2550; J2704; J2785; J2920; J2930; J3010; J3370; J3490; J7060; J7620; Q9969; S0119